=== PATIENT | male | born 1945 | race Caucasian/White ===

== ENCOUNTER 2021-05-02 17:08 | Emergency (ER) | payer MEDICARE, OTHER, SELFPAY ==
[2021-05-02 17:49] VITALS: BP 142/68; PULSE 102; RESP 22; TEMP 39.3; O2SAT 94; BMI 31.4
--- NOTE | 2021-05-02 17:59 | DI.RAD.S_ITS ---
PROCEDURE: XR CHEST 1V INDICATIONS: suspected sepsis TECHNIQUE: One view of the chest was acquired. COMPARISON: None. FINDINGS: Surgical changes and devices: Left-sided percutaneous cardiac defibrillator device. Left humeral head bone anchor. Lungs and pleura: The left hemidiaphragm is elevated. Visible lung carter demonstrate slight coarsening of the interstitial markings but no focal consolidations. Scattered punctate calcifications. No pleural effusion or pneumothorax. Mediastinum: Mediastinal contours appear normal. Heart size is not well seen due to elevated diaphragm contour.. Bones and chest wall: Degenerative endplate spurs in the thoracic spine and in the upper lumbar spine. . Probable remote, healed right clavicle injury. IMPRESSION: 1. No radiographic evidence of acute cardiopulmonary disease. 2. Probable cardiomegaly, obscured by elevation of the left hemidiaphragm. Dictated by: Fransisca Girard M.D. on 05/02/2021 at 18:38 Approved by: Fransisca Girard M.D. on 05/02/2021 at 18:42
--- NOTE | 2021-05-02 17:59 | DI.RAD.S_ITS ---
PROCEDURE: XR SHOULDER LT MIN 2V INDICATIONS: fall, left shoulder pain, fever 103 TECHNIQUE: Three views of the shoulder were acquired. COMPARISON: None. FINDINGS: Bones: No fractures or dislocations. Spurring along the inferior acromioclavicular joint and dystrophic calcifications along the caudal portion of the joint. No suspicious bony lesions. Visualized ribs appear intact. Humeral head bone anchor. Soft tissues: Faint dystrophic calcifications between in the acromial humeral interval. Chondrocalcinosis over the humeral head. IMPRESSION: 1. No fractures. 2. Chondrocalcinosis. 3. Moderate AC joint degeneration. 4. Prior left shoulder surgery. Dictated by: Fransisca Girard M.D. on 05/02/2021 at 18:42 Approved by: Fransisca Girard M.D. on 05/02/2021 at 18:44
[2021-05-02 18:22] LABS: Add Manual Diff / Slide Review NO; Basophils Absolute Auto 0 /uL (0-100); Basophils Percent Auto 0.4 % (0-2); Eosinophils Absolute Auto 0 /uL (0-450); Eosinophils Percent Auto 0.2 % (2-4); Hematocrit 40.1 % (41-53); Hemoglobin 13.4 g/dL (13.5-17.5); Lymphocytes Absolute Auto 400 /uL (1100-4500); Lymphocytes Percent Auto 4.5 % (25-40); Mean Corpuscular HGB Conc 33.4 % (30-36); Mean Corpuscular Hemoglobin 30.7 PG (26-34); Mean Corpuscular Volume 91.9 fL (80-100); Monocytes Absolute Auto 1100 /uL (0-900); Monocytes Percent Auto 11.5 % (3-14); Neutrophils Absolute Auto 8200 /uL (1500-7000); Neutrophils Percent Auto 83.4 % (50-75); Platelet Count 222 X10^3/uL (150-400); Red Blood Cell Count 4.36 X10^6/uL (4.5-5.9); Red Cell Distribution Width 13.7 % (11.6-14.8); White Blood Cell Count 9.9 X10^3/uL (4.5-11.0)
[2021-05-02 18:26] LABS: COVID19 -Nasal RAPID Negative (Negative)
[2021-05-02] MEDS: SODIUM CHLORIDE 0.9% 1,000 ML 1000 ML IV (18:32)
[2021-05-02 18:36] LABS: Lactate (Lactic Acid) 0.6 mmol/L (0.7-2.1)
[2021-05-02 18:37] LABS: Alanine Aminotransferase 20 IU/L (<50); Albumin 3.6 g/dL (3.5-5.0); Albumin Globulin Ratio 1.2 (1.0-2.8); Alkaline Phosphatase 67 U/L (38-126); Aspartate Aminotransferase 21 IU/L (17-59); BUN Creatinine Ratio 25.8 (6-22); Bilirubin Total 0.7 mg/dL (0.2-1.3); Blood Urea Nitrogen 24 mg/dL (9-20); Calcium 9.5 mg/dL (8.4-10.2); Carbon Dioxide 24 mmol/L (22-32); Chloride 95 mmol/L (98-107); Creatine Kinase 46 U/L (55-170); Estimated Glomerular Filt Rate > 60.0 mL/min (>60); Globulin 3.1 g/dL (1.7-4.1); Glucose 144 mg/dL (80-110); HEMOLYSIS < 15 (0-50); Lipase 29 U/L (23-300); Potassium 4.7 mmol/L (3.4-5.1); Sodium 126 mmol/L (137-145); Total Protein 6.7 g/dL (6.3-8.2)
[2021-05-02 18:49] LABS: NT-proBNP (BNP-Adult 18+) 376 pg/mL (<125); Troponin I < 0.012 ng/mL (0.01-0.034)
[2021-05-02 18:53] LABS: Procalcitonin 0.21 ng/mL (<0.5)
--- NOTE | 2021-05-02 22:22 | ED.GENADULT ---
HPI - General Adult <Janeen Alcantar MD - Last Filed: 05/03/21 17:20> General Chief complaint: Extremity Injury, Upper Stated complaint: lt shoulder injury s/p fall Time Seen by Provider: 05/02/21 18:07 Source: patient and family Mode of arrival: Wheelchair Limitations: no limitations History of Present Illness HPI narrative: 76-year-old gentleman with a history of left-sided neck foramenectomy in December of this year for which he takes gabapentin and baclofen, atherosclerotic coronary artery disease with pacer defibrillator in place an ejection fraction in the mid 50s, intermittent lower extremity edema with as needed Lasix use without significant congestive heart failure history. [place] on [place] boat today while laying in bed went back to catch himself with his left arm and felt something pull/pop/tear in the upper arm shoulder area. He comes in for further evaluation. In the emergency department he is noted to have a temperature of a 103?. He has absolutely no complaints consistent with infectious etiology at all. He has had no cough he did not note that he had a fever, no chills, myalgias, chest pain, palpitations, abdominal pain, vomiting, diarrhea, skin changes rashes or cellulitis concerns and no dysuria or flank pain. Related Data Previous Rx's Medication Instructions Recorded cephalexin 500 mg capsule 500 mg PO Q6H 7 Days #28 cap 05/03/21 oxycodone 5 mg tablet 5 mg PO Q4-6H PRN #20 tab 05/03/21 oxycodone-acetaminophen 5 mg-300 1 tab PO Q8H PRN #20 tab 05/03/21 mg tablet Allergies Allergy/AdvReac Type Severity Reaction Status Date / Time latex Allergy Verified 05/02/21 17:49 Review of Systems <Janeen Alcantar MD - Last Filed: 05/03/21 17:20> Review of Systems Narrative: Remainder of complete review of systems is otherwise unremarkable except for that included in the HPI. Patient History <Janeen Alcantar MD - Last Filed: 05/03/21 17:20> Medical History (Updated 05/03/21 @ 17:15 by Janeen Alcantar MD) Cardiac disease Lower extremity edema Presence of combination internal cardiac defibrillator (ICD) and pacemaker Surgical History (Updated 07/30/21 @ 17:14 by Janeen Alcantar MD) H/O cervical spine surgery Social History Smoking Status: Never smoker Smoking Status: Never smoker Substance Use Type: does not use Exam <Janeen Alcantar MD - Last Filed: 05/03/21 17:20> Narrative Exam Narrative: General: Healthy appearing, in mild distress due to left arm and shoulder pain Able to give a complete and coherent history. Well-nourished well-developed HEENT: Moist mucous membranes, normal sclera with reactive pupils, Neck: No JVD, supple Respiratory: Lungs are clear to auscultation, no wheezing no rales no rhonchi. Full and symmetrical air movement Cardiac: Regular rate and rhythm no murmurs no bruits Abdomen: Soft, nontender, good bowel tones, no flank pain Skin: Warm and dry, no rashes Neurologic: Grossly neurologically intact with no obvious asymmetries or abnormalities Extremities: Left shoulder tender with internal and external rotation and mild anterior fullness. No obvious bony injury and no contusions abrasions or hematomas. 1+ bilateral lower extremity edema Psych: Cooperative, appropriate insight and affect Initial Vital Signs Initial Vital Signs: Vital Signs Temperature 102.7 F H 05/02/21 17:49 Pulse Rate 102 H 05/02/21 17:49 Respiratory Rate 22 05/02/21 17:49 Blood Pressure 142/68 H 05/02/21 17:49 Pulse Oximetry 94 05/02/21 17:49 <Kaushik De Los Santos DO - Last Filed: 05/03/21 19:57> Initial Vital Signs Initial Vital Signs: Vital Signs Temperature 102.7 F H 05/02/21 17:49 Pulse Rate 102 H 05/02/21 17:49 Respiratory Rate 22 05/02/21 17:49 Blood Pressure 142/68 H 05/02/21 17:49 Pulse Oximetry 94 05/02/21 17:49 Course <Janeen Alcantar MD - Last Filed: 05/03/21 17:20> Orders Ordered: Discontinued Medications Sodium Chloride (Normal Saline 0.9%) 1,000 mls @ 1,000 mls/hr IV BOLUS ONE Stop: 05/02/21 18:58 Last Infusion: 05/02/21 20:18 Dose: 0 mls/hr Documented by: Admin: 05/02/21 18:32 Dose: 1,000 mls/hr Documented by: ROSA Oxycodone/Acetaminophen (Oxycodone/Acetaminophen 5/325 Tablet) 2 tab PO NOW ONE Stop: 05/02/21 22:48 Last Admin: 05/02/21 23:02 Dose: 2 tab Documented by: ERIKA Oxycodone/Acetaminophen (Oxycodone/Apap 5/325 Prepack) 1 bottle MISC SEEINSTR ONE Stop: 05/03/21 01:31 Last Admin: 05/03/21 01:42 Dose: 1 bottle Documented by: KATY Vital Signs Vital signs: Vital Signs - 8 hr 05/02/21 17:49 05/03/21 00:44 Temperature 102.7 F H 98.8 F Pulse Rate 102 H Respiratory Rate 22 Blood Pressure 142/68 H Pulse Oximetry 94 <Kaushik De Los Santos DO - Last Filed: 05/03/21 19:57> Course Course Narrative: 1020 - lab called, Blood Cx x3 note Staph. Attempt to call patient at home, no answer. Left message. 1140 - patient called back. Lab findings relayed. He feels great. No fever. No chills. No LE/N/V/cough/chest pain/urinary complaints. Rx for Keflex 500 q6 x7 days sent to [facility]. Return precautions discussed and questions answered to his apparent satisfaction Orders Ordered: Discontinued Medications Sodium Chloride (Normal Saline 0.9%) 1,000 mls @ 1,000 mls/hr IV BOLUS ONE Stop: 05/02/21 18:58 Last Infusion: 05/02/21 20:18 Dose: 0 mls/hr Documented by: Admin: 05/02/21 18:32 Dose: 1,000 mls/hr Documented by: ROSA Oxycodone/Acetaminophen (Oxycodone/Acetaminophen 5/325 Tablet) 2 tab PO NOW ONE Stop: 05/02/21 22:48 Last Admin: 05/02/21 23:02 Dose: 2 tab Documented by: ERIKA Oxycodone/Acetaminophen (Oxycodone/Apap 5/325 Prepack) 1 bottle MISC SEEINSTR ONE Stop: 05/03/21 01:31 Last Admin: 05/03/21 01:42 Dose: 1 bottle Documented by: CTRLAYLA Vital Signs Vital signs: Vital Signs - 8 hr 05/02/21 17:49 05/03/21 00:44 Temperature 102.7 F H 98.8 F Pulse Rate 102 H Respiratory Rate 22 Blood Pressure 142/68 H Pulse Oximetry 94 Medical Decision Making <Janeen Alcantar MD - Last Filed: 05/03/21 17:20> Lab Data Result diagrams: 05/02/21 18:12 05/02/21 18:12 Labs: Lab Results 05/02/21 05/02/21 05/02/21 Range/Units 18:00 18:12 18:12 WBC 9.9 (4.5-11.0) X10^3/uL RBC 4.36 L (4.5-5.9) X10^6/uL Hgb 13.4 L (13.5-17.5) g/dL Hct 40.1 L (41-53) % MCV 91.9 (80-100) fL MCH 30.7 (26-34) PG MCHC 33.4 (30-36) % RDW 13.7 (11.6-14.8) % Plt Count 222 (150-400) X10^3/uL Neut % (Auto) 83.4 H (50-75) % Lymph % (Auto) 4.5 L (25-40) % [place] % (Auto) 11.5 (3-14) % Eos % (Auto) 0.2 L (2-4) % Baso % (Auto) 0.4 (0-2) % Neut # (Auto) 8200 H (4985-3831) /uL Lymph # (Auto) 400 L (7539-3748) /uL [place] # (Auto) 1100 H (0-900) /uL Eos # (Auto) 0 (0-450) /uL Baso # (Auto) 0 (0-100) /uL Sodium 126 L (137-145) mmol/L Potassium 4.7 (3.4-5.1) mmol/L Chloride 95 L (98-107) mmol/L Carbon Dioxide 24 (22-32) mmol/L BUN 24 H (9-20) mg/dL Creatinine 0.93 (0.66-1.25) mg/dL Estimated GFR > 60.0 (>60) mL/min BUN/Creatinine Ratio 25.8 H (6-22) Glucose 144 H (80-110) mg/dL Lactate (0.7-2.1) mmol/L Calcium 9.5 (8.4-10.2) mg/dL Total Bilirubin 0.7 (0.2-1.3) mg/dL AST 21 (17-59) IU/L ALT 20 (<50) IU/L Alkaline Phosphatase 67 (38-126) U/L Total Creatine Kinase (55-170) U/L CK-MB (CK-2) CK-MB (CK-2) Rel Index Troponin I (0.01-0.034) ng/mL NT-Pro-B Natriuret Pep (<125) pg/mL Total Protein 6.7 (6.3-8.2) g/dL Albumin 3.6 (3.5-5.0) g/dL Globulin 3.1 (1.7-4.1) g/dL Albumin/Globulin Ratio 1.2 (1.0-2.8) Lipase 29 (23-300) U/L Procalcitonin 0.21 (<0.5) ng/mL A. baumannii (PCR) (Not Detect) Kendal albicans (PCR) (Not Detect) C. glabrata (PCR) (Not Detect) C. krusei (PCR) (Not Detect) C. parapsilosis (PCR) (Not Detect) C. tropicalis (PCR) (Not Detect) SARS-CoV-2 (PCR) Negative (Negative) Enterobacteriac sp PCR (Not Detect) E. cloacae complex PCR (Not Detect) Enterococcus sp PCR (Not Detect) E. coli (PCR) (Not Detect) H. influenzae (PCR) (Not Detect) Klebsiella oxytoca PCR (Not Detect) Klebsiella pneumoniae (Not Detect) List. monocytogenes PCR (Not Detect) N. meningitidis (PCR) (Not Detect) Proteus species (PCR) (Not Detect) Serratia marcescens PCR (Not Detect) Staphylococcus sp PCR (Not Detect) Staph aureus (PCR) (Not Detect) mecA-Methicil Res Gene (Not Detect) Streptococcus sp PCR (Not Detect) Group A Strep (PCR) (Not Detect) Strep agalactiae (PCR) (Not Detect) Strep pneumoniae (PCR) (Not Detect) P. aeruginosa (PCR) (Not Detect) [place]/B-Vanco Res Genes KPC-Carbap Res Gene PCR 05/02/21 05/02/21 05/02/21 Range/Units 18:12 18:12 18:12 WBC (4.5-11.0) X10^3/uL RBC (4.5-5.9) X10^6/uL Hgb (13.5-17.5) g/dL Hct (41-53) % MCV (80-100) fL MCH (26-34) PG MCHC (30-36) % RDW (11.6-14.8) % Plt Count (150-400) X10^3/uL Neut % (Auto) (50-75) % Lymph % (Auto) (25-40) % [place] % (Auto) (3-14) % Eos % (Auto) (2-4) % Baso % (Auto) (0-2) % Neut # (Auto) (2519-8223) /uL Lymph # (Auto) (5749-5900) /uL [place] # (Auto) (0-900) /uL Eos # (Auto) (0-450) /uL Baso # (Auto) (0-100) /uL Sodium (137-145) mmol/L Potassium (3.4-5.1) mmol/L Chloride (98-107) mmol/L Carbon Dioxide (22-32) mmol/L BUN (9-20) mg/dL Creatinine (0.66-1.25) mg/dL Estimated GFR (>60) mL/min BUN/Creatinine Ratio (6-22) Glucose (80-110) mg/dL Lactate 0.6 L (0.7-2.1) mmol/L Calcium (8.4-10.2) mg/dL Total Bilirubin (0.2-1.3) mg/dL AST (17-59) IU/L ALT (<50) IU/L Alkaline Phosphatase (38-126) U/L Total Creatine Kinase 46 L (55-170) U/L CK-MB (CK-2) TNP CK-MB (CK-2) Rel Index TNP Troponin I < 0.012 (0.01-0.034) ng/mL NT-Pro-B Natriuret Pep 376 H (<125) pg/mL Total Protein (6.3-8.2) g/dL Albumin (3.5-5.0) g/dL Globulin (1.7-4.1) g/dL Albumin/Globulin Ratio (1.0-2.8) Lipase (23-300) U/L Procalcitonin (<0.5) ng/mL A. baumannii (PCR) Not detected (Not Detect) Kendal albicans (PCR) Not detected (Not Detect) C. glabrata (PCR) Not detected (Not Detect) C. krusei (PCR) Not detected (Not Detect) C. parapsilosis (PCR) Not detected (Not Detect) C. tropicalis (PCR) Not detected (Not Detect) SARS-CoV-2 (PCR) (Negative) Enterobacteriac sp PCR Not detected (Not Detect) E. cloacae complex PCR Not detected (Not Detect) Enterococcus sp PCR Not detected (Not Detect) E. coli (PCR) Not detected (Not Detect) H. influenzae (PCR) Not detected (Not Detect) Klebsiella oxytoca PCR Not detected (Not Detect) Klebsiella pneumoniae Not detected (Not Detect) List. monocytogenes PCR Not detected (Not Detect) N. meningitidis (PCR) Not detected (Not Detect) Proteus species (PCR) Not detected (Not Detect) Serratia marcescens PCR Not detected (Not Detect) Staphylococcus sp PCR Detected H (Not Detect) Staph aureus (PCR) Detected H (Not Detect) mecA-Methicil Res Gene Not detected (Not Detect) Streptococcus sp PCR Not detected (Not Detect) Group A Strep (PCR) Not detected (Not Detect) Strep agalactiae (PCR) Not detected (Not Detect) Strep pneumoniae (PCR) Not detected (Not Detect) P. aeruginosa (PCR) Not detected (Not Detect) [place]/B-Vanco Res Genes Not Reportable KPC-Carbap Res Gene PCR Not Reportable Imaging Data Chest x-ray: Radiologist's Impression: FINDINGS: Surgical changes and devices: Left-sided percutaneous cardiac defibrillator device. Left humeral head bone anchor. Lungs and pleura: The left hemidiaphragm is elevated. Visible lung carter demonstrate slight coarsening of the interstitial markings but no focal consolidations. Scattered punctate calcifications. No pleural effusion or pneumothorax. Mediastinum: Mediastinal contours appear normal. Heart size is not well seen due to elevated diaphragm contour.. Bones and chest wall: Degenerative endplate spurs in the thoracic spine and in the upper lumbar spine. . Probable remote, healed right clavicle injury. IMPRESSION: 1. No radiographic evidence of acute cardiopulmonary disease. 2. Probable cardiomegaly, obscured by elevation of the left hemidiaphragm. Dictated by: Farnsisca Girard M.D. on 05/02/2021 at 18:38 XR shoulder: Radiologist's Impression: FINDINGS: Bones: No fractures or dislocations. Spurring along the inferior acromioclavicular joint and dystrophic calcifications along the caudal portion of the joint. No suspicious bony lesions. Visualized ribs appear intact. Humeral head bone anchor. Soft tissues: Faint dystrophic calcifications between in the acromial humeral interval. Chondrocalcinosis over the humeral head. IMPRESSION: 1. No fractures. 2. Chondrocalcinosis. 3. Moderate AC joint degeneration. 4. Prior left shoulder surgery. Dictated by: Fransisca Girard M.D. on 05/02/2021 at 18:42 x MDM Narrative Medical decision making narrative: 76-year-old gentleman with complaints of left shoulder pain after falling back on the left shoulder in bed and pulling the area. He is not on blood thinners but does take aspirin. X-rays are unremarkable but he does have a moderate effusion developing in the anterior portion of the left shoulder. CT scan does not show any subtle bony injury and does not suggest hemarthrosis. He is placed in a sling for comfort and recommended orthopedic follow-up. He cannot have an MRI due to the external pacemaker in place in the left axillary area. Was incidentally noted to be febrile in the emergency department to 103? some with thorough workup was undertaken. He was noted to be mildly hyponatremic but has no signs of infectious etiology to explain the fever. Chest x-ray is unremarkable urine is unremarkable clinical exam is unremarkable. The resolved spontaneously. Was given 2 Percocet for pain control and after that had some mild sweating that he felt was probably more related to pain and pain medications. At this time there is no evidence of sepsis, unclear etiology for the fever including a negative COVID test, no evidence of congestive heart failure or acute coronary disease. He does use Lasix as needed and has 10 mg tablets available to him. Have asked him to use between 2 and 3 a day to get rid of the mild edema with the lower extremities. He also notes that as they have been on their boat this last week he has had not as much opportunity for walking and exercise and attributes some of that to the mild edema as well. At this point he is safe for home discharge <Kaushik De Los Santos DO - Last Filed: 05/03/21 19:57> Lab Data Labs: Lab Results 05/02/21 05/02/21 05/02/21 Range/Units 18:00 18:12 18:12 WBC 9.9 (4.5-11.0) X10^3/uL RBC 4.36 L (4.5-5.9) X10^6/uL Hgb 13.4 L (13.5-17.5) g/dL Hct 40.1 L (41-53) % MCV 91.9 (80-100) fL MCH 30.7 (26-34) PG MCHC 33.4 (30-36) % RDW 13.7 (11.6-14.8) % Plt Count 222 (150-400) X10^3/uL Neut % (Auto) 83.4 H (50-75) % Lymph % (Auto) 4.5 L (25-40) % [place] % (Auto) 11.5 (3-14) % Eos % (Auto) 0.2 L (2-4) % Baso % (Auto) 0.4 (0-2) % Neut # (Auto) 8200 H (7935-8145) /uL Lymph # (Auto) 400 L (5698-0001) /uL [place] # (Auto) 1100 H (0-900) /uL Eos # (Auto) 0 (0-450) /uL Baso # (Auto) 0 (0-100) /uL Sodium 126 L (137-145) mmol/L Potassium 4.7 (3.4-5.1) mmol/L Chloride 95 L (98-107) mmol/L Carbon Dioxide 24 (22-32) mmol/L BUN 24 H (9-20) mg/dL Creatinine 0.93 (0.66-1.25) mg/dL Estimated GFR > 60.0 (>60) mL/min BUN/Creatinine Ratio 25.8 H (6-22) Glucose 144 H (80-110) mg/dL Lactate (0.7-2.1) mmol/L Calcium 9.5 (8.4-10.2) mg/dL Total Bilirubin 0.7 (0.2-1.3) mg/dL AST 21 (17-59) IU/L ALT 20 (<50) IU/L Alkaline Phosphatase 67 (38-126) U/L Total Creatine Kinase (55-170) U/L CK-MB (CK-2) CK-MB (CK-2) Rel Index Troponin I (0.01-0.034) ng/mL NT-Pro-B Natriuret Pep (<125) pg/mL Total Protein 6.7 (6.3-8.2) g/dL Albumin 3.6 (3.5-5.0) g/dL Globulin 3.1 (1.7-4.1) g/dL Albumin/Globulin Ratio 1.2 (1.0-2.8) Lipase 29 (23-300) U/L Procalcitonin 0.21 (<0.5) ng/mL A. baumannii (PCR) (Not Detect) Kendal albicans (PCR) (Not Detect) C. glabrata (PCR) (Not Detect) C. krusei (PCR) (Not Detect) C. parapsilosis (PCR) (Not Detect) C. tropicalis (PCR) (Not Detect) SARS-CoV-2 (PCR) Negative (Negative) Enterobacteriac sp PCR (Not Detect) E. cloacae complex PCR (Not Detect) Enterococcus sp PCR (Not Detect) E. coli (PCR) (Not Detect) H. influenzae (PCR) (Not Detect) Klebsiella oxytoca PCR (Not Detect) Klebsiella pneumoniae (Not Detect) List. monocytogenes PCR (Not Detect) N. meningitidis (PCR) (Not Detect) Proteus species (PCR) (Not Detect) Serratia marcescens PCR (Not Detect) Staphylococcus sp PCR (Not Detect) Staph aureus (PCR) (Not Detect) mecA-Methicil Res Gene (Not Detect) Streptococcus sp PCR (Not Detect) Group A Strep (PCR) (Not Detect) Strep agalactiae (PCR) (Not Detect) Strep pneumoniae (PCR) (Not Detect) P. aeruginosa (PCR) (Not Detect) [place]/B-Vanco Res Genes KPC-Carbap Res Gene PCR 05/02/21 05/02/21 05/02/21 Range/Units 18:12 18:12 18:12 WBC (4.5-11.0) X10^3/uL RBC (4.5-5.9) X10^6/uL Hgb (13.5-17.5) g/dL Hct (41-53) % MCV (80-100) fL MCH (26-34) PG MCHC (30-36) % RDW (11.6-14.8) % Plt Count (150-400) X10^3/uL Neut % (Auto) (50-75) % Lymph % (Auto) (25-40) % [place] % (Auto) (3-14) % Eos % (Auto) (2-4) % Baso % (Auto) (0-2) % Neut # (Auto) (4965-3276) /uL Lymph # (Auto) (5614-4970) /uL [place] # (Auto) (0-900) /uL Eos # (Auto) (0-450) /uL Baso # (Auto) (0-100) /uL Sodium (137-145) mmol/L Potassium (3.4-5.1) mmol/L Chloride (98-107) mmol/L Carbon Dioxide (22-32) mmol/L BUN (9-20) mg/dL Creatinine (0.66-1.25) mg/dL Estimated GFR (>60) mL/min BUN/Creatinine Ratio (6-22) Glucose (80-110) mg/dL Lactate 0.6 L (0.7-2.1) mmol/L Calcium (8.4-10.2) mg/dL Total Bilirubin (0.2-1.3) mg/dL AST (17-59) IU/L ALT (<50) IU/L Alkaline Phosphatase (38-126) U/L Total Creatine Kinase 46 L (55-170) U/L CK-MB (CK-2) TNP CK-MB (CK-2) Rel Index TNP Troponin I < 0.012 (0.01-0.034) ng/mL NT-Pro-B Natriuret Pep 376 H (<125) pg/mL Total Protein (6.3-8.2) g/dL Albumin (3.5-5.0) g/dL Globulin (1.7-4.1) g/dL Albumin/Globulin Ratio (1.0-2.8) Lipase (23-300) U/L Procalcitonin (<0.5) ng/mL A. baumannii (PCR) Not detected (Not Detect) Kendal albicans (PCR) Not detected (Not Detect) C. glabrata (PCR) Not detected (Not Detect) C. krusei (PCR) Not detected (Not Detect) C. parapsilosis (PCR) Not detected (Not Detect) C. tropicalis (PCR) Not detected (Not Detect) SARS-CoV-2 (PCR) (Negative) Enterobacteriac sp PCR Not detected (Not Detect) E. cloacae complex PCR Not detected (Not Detect) Enterococcus sp PCR Not detected (Not Detect) E. coli (PCR) Not detected (Not Detect) H. influenzae (PCR) Not detected (Not Detect) Klebsiella oxytoca PCR Not detected (Not Detect) Klebsiella pneumoniae Not detected (Not Detect) List. monocytogenes PCR Not detected (Not Detect) N. meningitidis (PCR) Not detected (Not Detect) Proteus species (PCR) Not detected (Not Detect) Serratia marcescens PCR Not detected (Not Detect) Staphylococcus sp PCR Detected H (Not Detect) Staph aureus (PCR) Detected H (Not Detect) mecA-Methicil Res Gene Not detected (Not Detect) Streptococcus sp PCR Not detected (Not Detect) Group A Strep (PCR) Not detected (Not Detect) Strep agalactiae (PCR) Not detected (Not Detect) Strep pneumoniae (PCR) Not detected (Not Detect) P. aeruginosa (PCR) Not detected (Not Detect) [place]/B-Vanco Res Genes Not Reportable KPC-Carbap Res Gene PCR Not Reportable Discharge Plan Departure Patient Disposition: Home Clinical Impression: Hyponatremia Injury of shoulder, left Qualifiers: Encounter type: initial encounter Qualified Code(s): S49.92XA - Unspecified injury of left shoulder and upper arm, initial encounter Edema Qualifiers: Edema type: unspecified Qualified Code(s): R60.9 - Edema, unspecified Instructions: DI for Shoulder Pain Activity Restrictions/Additional Instructions: Thank you for coming in today I am so sorry that this has happened on one of your away trips. Your shoulder is not broken and there is no obvious bleeding into the joint. You clearly have some swelling developing in the front part of the joint and do need to see an orthopedic surgeon in follow-up. If you choose to stay in [place], please call [facility] at [phone] In the meantime, use the sling for comfort. Using 400 mg of ibuprofen (2 args-aae-atcvhzl pills) and 1 Tylenol every 6 hours can be very helpful in controlling pain. For severe pain using 400 mg of ibuprofen and 1-2 Percocet can be helpful. Ice will also be helpful in controlling pain and swelling. Regarding your blood work, your salt/sodium level was low. If you are feeling more weak or just ?off? I would encourage you to return to the emergency department so that we can recheck that. With your lower extremity swelling, using 2-3 of your 10 mg Lasix/furosemide tablets daily for the next few days along with increasing activity will certainly help. If you notice that your having new or worsening symptoms please return to the ER Prescriptions: New oxycodone-acetaminophen 5-300 mg tablet 1 tab PO Q8H PRN (Reason: pain) Qty: 20 RF: 0 cephalexin 500 mg capsule 500 mg PO Q6H 7 Days Qty: 28 RF: 0 oxycodone 5 mg tablet 5 mg PO Q4-6H PRN (Reason: pain) Qty: 20 RF: 0
--- NOTE | 2021-05-02 22:47 | DI.CT.S_ITS ---
PROCEDURE: CT UE LT WO CON INDICATIONS: shoulder pain and fullness, trauma TECHNIQUE: Noncontrast 1-1.5 mm thick sections acquired from the acromioclavicular joint to the inferior scapula, with coronal and sagittal reformatting. COMPARISON: , CR, XR SHOULDER LT MIN 2V, 05/02/2021, 18:09. FINDINGS: Image quality: Excellent. Bones: No acute fracture or dislocation. Postsurgical changes are seen from prior rotator cuff tendon repair with a single metallic anchor at the anterior greater tuberosity. Moderate degenerative changes are seen in the glenohumeral joint with joint space narrowing and marginal osteophyte formation as well as subchondral cystic changes in the glenoid. There are moderate acromioclavicular degenerative changes. Degenerative changes are seen in the sternoclavicular joints and the included spine. Soft tissues: A few calcifications are seen in the subscapularis muscle that are most likely dystrophic, but could indicate calcific tendinopathy. There is grade 2 fatty infiltration of the infraspinatus muscle. The tendons, ligaments, articular cartilages, and labrum are not well evaluated with standard CT. There is a moderate subacromial/subdeltoid bursal effusion and a small glenohumeral effusion. No focal opacity is seen in the included lungs IMPRESSION: 1. No acute osseous abnormality. Soft tissue edema surrounding the left clavicular head could indicate transient dislocation or focal inflammatory changes. The sternoclavicular joints are normally aligned at the time of the exam. 2. Postsurgical changes from rotator cuff tendon repair with a surgical anchor in the humeral head. Calcifications within the distal supraspinatus and infraspinatus tendons are likely dystrophic, but may be related to calcific tendinopathy. If there is suspicion for a rotator cuff tendon tear and the patient cannot undergo MRI, a CT arthrogram could provide more information. 3. Moderate glenohumeral and acromioclavicular osteoarthrosis. 4. Moderate subacromial/subdeltoid bursal effusion or bursitis. There is no significant discrepancy when compared to the overnight Teleradiology report. Dictated by: Paxton Resendiz M.D. on 05/03/2021 at 8:13 Approved by: Paxton Resendiz M.D. on 05/03/2021 at 8:28
[2021-05-02] MEDS: OXYCODONE/ACETAMINOPHEN 5/325 TABLET 2 TAB PO (23:02)
[2021-05-03 00:44] VITALS: TEMP 37.1
[2021-05-03] MEDS: OXYCODONE/APAP 5/325 PREPACK 1 BOTTLE MISC (01:42)
[2021-05-03 01:43] VITALS: BP 114/71; PULSE 64; RESP 19; O2SAT 97
[2021-05-03 10:12] LABS: Acinetobacter baumannii Not Detected (Not Detect); Candida albicans Not Detected (Not Detect); Candida glabrata Not Detected (Not Detect); Candida krusei Not Detected (Not Detect); Candida parapsilosis Not Detected (Not Detect); Candida tropicalis Not Detected (Not Detect); E. coli Not Detected (Not Detect); Enterobacter cloacae complex Not Detected (Not Detect); Enterobacteriaceae species Not Detected (Not Detect); Enterococcus species Not Detected (Not Detect); Haemophilus influenzae Not Detected (Not Detect); Listeria monocytogenes Not Detected (Not Detect); Methicillin-resistant gene Not Detected (Not Detect); Neisseria meningitidis Not Detected (Not Detect); Proteus species Not Detected (Not Detect); Pseudomonas aeruginosa Not Detected (Not Detect); Serratia marcescens Not Detected (Not Detect); Staphylococcus species Detected (Not Detect); Streptococcus agalactiae (Gr B Not Detected (Not Detect); Streptococcus pneumonia Not Detected (Not Detect); Streptococcus pyogenes (Gr A) Not Detected (Not Detect); Streptococcus species Not Detected (Not Detect)
== END 2021-05-03 01:47 | disposition home or self-care (01) ==
PROVIDERS: Emergency Medicine; Emergency Provider Emergency Medicine
DX: E87.1 Hypo-osmolality and hyponatremia (principal); S49.92XA Unspecified injury of left shoulder and upper arm, initial encounter; R60.9 Edema, unspecified; R50.9 Fever, unspecified; Z20.822 Contact with and (suspected) exposure to COVID-19; V92.09XA Drowning and submersion due to fall off unspecified watercraft, initial encounter
CPT/HCPCS: 36415; 71045; 73030; 73200; 80053; 82550; 83605; 83690; 83880; 84145; 84484; 85025; 87040; 87150; 87186; 87205; 87635; 93005; 96360; 96361; 99284; C9803

== ENCOUNTER 2021-05-04 11:50 | Inpatient (IN) | payer MEDICARE, OTHER, SELFPAY ==
[2021-05-04] VITALS (9 sets, daily range): BP systolic 148–184; BP diastolic 69–91; PULSE 91–114; RESP 20–22; TEMP 36.9–38.2; O2SAT 92–100; BMI 33.1
--- NOTE | 2021-05-04 12:17 | ED.UPPEXIN ---
HPI - Extremity Injury (Upper) General Chief Complaint: Extremity Injury, Upper Stated Complaint: TORN SHOULDER Time Seen by Provider: 05/04/21 12:17 Source: patient and family Mode of arrival: Ambulatory Limitations: no limitations History of Present Illness HPI narrative: 76M nonsmoker with history of alcohol abuse, AICD, hyponatremia, edema, returns for evaluation. He was recently seen and had a very extensive workup after he had a ground level fall resulting in a left shoulder injury. He had x-rays and CT which noted no fracture or dislocation but fluid suggesting injury. He was given pain meds and a sling and discharged home. He did have a fever on his arrival initially and as a consequence a septic workup was initiated. There were no obvious findings and patient had no infectious symptoms other than a small amount of postnasal drip. He has had no chest pain or shortness of breath. He denies nausea or vomiting. He denies any abdominal pain, constipation or diarrhea. He has no dysuria or frequency. Blood cultures returned Staph aureus in multiple bottles and I called him a few days ago, he stated he did not feel terrible and for that reason I did call in antibiotics but did not ask him to come back in, he was given extensive return precautions however. He was contacted again today and stated he was having increasing pain in his shoulder in just did not feel great, without any specific complaints. Related Data Previous Rx's Medication Instructions Recorded cephalexin 500 mg capsule 500 mg PO Q6H 7 Days #28 cap 05/03/21 oxycodone 5 mg tablet 5 mg PO Q4-6H PRN #20 tab 05/03/21 oxycodone-acetaminophen 5 mg-300 1 tab PO Q8H PRN #20 tab 05/03/21 mg tablet Allergies Allergy/AdvReac Type Severity Reaction Status Date / Time latex Allergy Verified 05/04/21 12:03 Review of Systems Review of Systems Narrative: GENERAL: See HPI HEENT: Denies sinus pain, ear pain, sore throat, difficulty swallowing, dizziness. RESPIRATORY: Denies dyspnea, cough, wheezing, hemoptysis, sputum. CARDIOVASCULAR: Denies chest pain, palpitations, orthopnea, edema, GASTROINTESTINAL: Denies nausea, vomiting, abdominal pain, diarrhea, constipation, melena. : Denies dysuria, frequency, incontinence, hematuria, urinary retention. MUSCULOSKELETAL: See HPI SKIN: Denies rash, skin lesions, or other NEUROLOGIC: Denies weakness, headache, numbness, change in speech, confusion, seizures, incoordination. PSYCHIATRIC: No concerning psychosocial issues. 12 point review of systems is negative except for those stated above Patient History Medical History Cardiac disease Lower extremity edema Presence of combination internal cardiac defibrillator (ICD) and pacemaker Surgical History H/O cervical spine surgery Social History Smoking Status: Never smoker Smoking Status: Never smoker alcohol intake frequency: 0-2 drinks per day Substance Use Type: does not use Exam Narrative Exam Narrative: GENERAL: [76] year old patient appears stated age. Well-developed patient, in mild distress. Clearly having pain in his left upper extremity but generally appears unwell HEAD: Atraumatic. Normocephalic. EYES: Pupils equal round and reactive. Extraocular motions intact. No scleral icterus. No injection or drainage. ENT: Nose without bleeding, purulent drainage. Throat without erythema, tonsillar hypertrophy or exudate. Airway patent. NECK: Trachea midline. Mild bilateral JVD CARDIOVASCULAR: Minimally tachycardic but regular rhythm without murmurs, gallops, or rubs. RESPIRATORY: Clear to auscultation. Breath sounds equal bilaterally. No wheezes, rales, or rhonchi. GASTROINTESTINAL: Abdomen soft, non-tender, nondistended. EXTREMITIES: Obvious effusion to left shoulder, no redness or warmth, pain with active range of motion but not terribly painful with passive range of motion. Additional tenderness along clavicle to the sternoclavicular joint on the left. BACK: Nontender without deformity or crepitance. No flank tenderness. NEURO: AOx3. SKIN: No rash or erythema of visible areas Initial Vital Signs Initial Vital Signs: Vital Signs Temperature 98.4 F 05/04/21 12:02 Pulse Rate 91 H 05/04/21 12:02 Respiratory Rate 22 05/04/21 12:02 Pulse Oximetry 100 05/04/21 12:02 Course Orders Ordered: ED Orders 05/04/21 13:00 C-Reactive Protein Quant Stat Complete Blood Count AUTO DIFF Stat Comprehensive Metabolic Panel Stat Erythrocyte Sedimentation Rate Stat Lactate (Lactic Acid) Stat Procalcitonin Stat Troponin & CK Cardiac Panel Stat 05/04/21 13:40 Blood Culture Stat 05/04/21 15:30 Urinalysis and Microscopic Stat 05/04/21 16:10 Body Fluid Culture Stat Cell Count w Diff Body Fluid Stat Glucose Body Fluid Stat Total Protein Body Fluid Stat 05/04/21 16:12 CT chest abd pel w con Stat 05/04/21 16:20 COVID19 - ADMIT (REGISTERED RESPIRATORY TECHNICIAN swab/PCR) Stat 05/04/21 18:35 Body Fluid Culture Stat Lactated Ringer's (Lactated Ringers) 1,000 mls @ 200 mls/hr IV CONT JESSICA Last Infusion: 05/04/21 18:42 Dose: 0 mls/hr Documented by: Admin: 05/04/21 13:23 Dose: 200 mls/hr Documented by: ROSA Vancomycin HCl/Dextrose (Vancomycin) 2,000 mg in 400 mls @ 200 mls/hr IV NOW ONE Stop: 05/04/21 20:42 Discontinued Medications Hydromorphone HCl (Hydromorphone 0.5 Mg Inj) 0.5 mg IV NOW ONE Stop: 05/04/21 18:46 Last Admin: 05/04/21 18:47 Dose: 0.5 mg Documented by: KYLE Piperacillin Sod/Tazobactam (Sod 4.5 gm/ Sodium Chloride) 100 mls @ 200 mls/hr IV NOW ONE Stop: 05/04/21 18:33 Last Admin: 05/04/21 18:42 Dose: 200 mls/hr Documented by: KYLE Consultations Consultation #1: Call on-call orthopedics, Dr. Willson, given infectious concerns and worsening joint pain. She has seen evaluated the patient, please see her consultation for details but she did tap both the shoulder and sternoclavicular joint without any obvious findings up front Vital Signs Vital signs: Vital Signs - 8 hr 05/04/21 12:02 05/04/21 17:01 05/04/21 17:30 Temperature 98.4 F 100.4 F H Pulse Rate 91 H 107 H 112 H Respiratory Rate 22 Blood Pressure 184/91 H Pulse Oximetry 100 95 94 05/04/21 18:00 05/04/21 18:30 Temperature Pulse Rate 109 H 114 H Respiratory Rate Blood Pressure 153/69 H 164/75 H Pulse Oximetry 95 94 MDM - Extremity Injury (Upper) Lab Data Result diagrams: 05/04/21 13:00 05/04/21 13:00 Labs: Lab Results 05/04/21 05/04/21 05/04/21 Range/Units 13:00 13:00 13:00 WBC 9.6 (4.5-11.0) X10^3/uL RBC 4.13 L (4.5-5.9) X10^6/uL Hgb 12.7 L (13.5-17.5) g/dL Hct 38.2 L (41-53) % MCV 92.6 (80-100) fL MCH 30.8 (26-34) PG MCHC 33.3 (30-36) % RDW 14.0 (11.6-14.8) % Plt Count 226 (150-400) X10^3/uL Neut % (Auto) 82.0 H (50-75) % Lymph % (Auto) 4.4 L (25-40) % Shannon % (Auto) 12.5 (3-14) % Eos % (Auto) 1.0 L (2-4) % Baso % (Auto) 0.1 (0-2) % Neut # (Auto) 7800 H (5134-3674) /uL Lymph # (Auto) 400 L (5986-3097) /uL Shannon # (Auto) 1200 H (0-900) /uL Eos # (Auto) 100 (0-450) /uL Baso # (Auto) 0 (0-100) /uL ESR (0-15) MM/HR Sodium 126 L (137-145) mmol/L Potassium 4.8 (3.4-5.1) mmol/L Chloride 94 L (98-107) mmol/L Carbon Dioxide 27 (22-32) mmol/L BUN 29 H (9-20) mg/dL Creatinine 1.03 (0.66-1.25) mg/dL Estimated GFR > 60.0 (>60) mL/min BUN/Creatinine Ratio 28.2 H (6-22) Glucose 199 H (80-110) mg/dL Lactate 1.0 (0.7-2.1) mmol/L Calcium 9.6 (8.4-10.2) mg/dL Total Bilirubin 0.6 (0.2-1.3) mg/dL AST 18 (17-59) IU/L ALT 18 (<50) IU/L Alkaline Phosphatase 66 (38-126) U/L Total Creatine Kinase 61 (55-170) U/L CK-MB (CK-2) TNP CK-MB (CK-2) Rel Index TNP Troponin I < 0.012 (0.01-0.034) ng/mL C-Reactive Protein (<1.0) mg/dL Total Protein 6.3 (6.3-8.2) g/dL Albumin 3.3 L (3.5-5.0) g/dL Globulin 3.0 (1.7-4.1) g/dL Albumin/Globulin Ratio 1.1 (1.0-2.8) Procalcitonin 0.43 (<0.5) ng/mL Urine Color Urine Appearance Urine pH (4.5-8.0) Ur Specific [place] (1.000-1.035) Urine Protein (Negative) Urine Glucose (UA) (Negative) g/dL Urine Ketones (NEGATIVE) Urine Occult Blood (Negative) Urine Nitrate (Negative) Urine Bilirubin (NEGATIVE) Urine Urobilinogen (0.2) E.U./dL Ur Leukocyte Esterase (NEGATIVE) Urine RBC (0-5/HPF) Urine WBC (0-5/HPF) Ur Squamous Epith Cells (0-5/HPF) Ur Transition Epith Cell (0-5/HPF) Urine Bacteria (None) Ur Culture Indicated? Fluid Color Fluid Appearance Fluid RBC /uL Fld Tot Nucleated Cell /uL Fluid Polynuclear WBCs % Fluid Mononuclear WBCs % Fluid Eosinophils % Fluid Other Cells % Body Fluid Clot Fluid Glucose mg/dL Fluid Total Protein g/dL 05/04/21 05/04/21 05/04/21 Range/Units 13:00 13:00 15:30 WBC (4.5-11.0) X10^3/uL RBC (4.5-5.9) X10^6/uL Hgb (13.5-17.5) g/dL Hct (41-53) % MCV (80-100) fL MCH (26-34) PG MCHC (30-36) % RDW (11.6-14.8) % Plt Count (150-400) X10^3/uL Neut % (Auto) (50-75) % Lymph % (Auto) (25-40) % Shannon % (Auto) (3-14) % Eos % (Auto) (2-4) % Baso % (Auto) (0-2) % Neut # (Auto) (9945-2506) /uL Lymph # (Auto) (8688-0154) /uL Shannon # (Auto) (0-900) /uL Eos # (Auto) (0-450) /uL Baso # (Auto) (0-100) /uL ESR 45 H (0-15) MM/HR Sodium (137-145) mmol/L Potassium (3.4-5.1) mmol/L Chloride (98-107) mmol/L Carbon Dioxide (22-32) mmol/L BUN (9-20) mg/dL Creatinine (0.66-1.25) mg/dL Estimated GFR (>60) mL/min BUN/Creatinine Ratio (6-22) Glucose (80-110) mg/dL Lactate (0.7-2.1) mmol/L Calcium (8.4-10.2) mg/dL Total Bilirubin (0.2-1.3) mg/dL AST (17-59) IU/L ALT (<50) IU/L Alkaline Phosphatase (38-126) U/L Total Creatine Kinase (55-170) U/L CK-MB (CK-2) CK-MB (CK-2) Rel Index Troponin I (0.01-0.034) ng/mL C-Reactive Protein 29.8 H (<1.0) mg/dL Total Protein (6.3-8.2) g/dL Albumin (3.5-5.0) g/dL Globulin (1.7-4.1) g/dL Albumin/Globulin Ratio (1.0-2.8) Procalcitonin (<0.5) ng/mL Urine Color Yellow Urine Appearance Clear Urine pH 5.0 (4.5-8.0) Ur Specific [place] <=1.005 (1.000-1.035) Urine Protein Trace H (Negative) Urine Glucose (UA) Negative (Negative) g/dL Urine Ketones Negative (NEGATIVE) Urine Occult Blood Negative (Negative) Urine Nitrate Negative (Negative) Urine Bilirubin Negative (NEGATIVE) Urine Urobilinogen 0.2 (0.2) E.U./dL Ur Leukocyte Esterase Negative (NEGATIVE) Urine RBC None seen (0-5/HPF) Urine WBC 0-1/hpf (0-5/HPF) Ur Squamous Epith Cells 5-10 /hpf H (0-5/HPF) Ur Transition Epith Cell 1-5/hpf (0-5/HPF) Urine Bacteria None seen (None) Ur Culture Indicated? Cult not indicated Fluid Color Fluid Appearance Fluid RBC /uL Fld Tot Nucleated Cell /uL Fluid Polynuclear WBCs % Fluid Mononuclear WBCs % Fluid Eosinophils % Fluid Other Cells % Body Fluid Clot Fluid Glucose mg/dL Fluid Total Protein g/dL 05/04/21 05/04/21 Range/Units 16:10 16:10 WBC (4.5-11.0) X10^3/uL RBC (4.5-5.9) X10^6/uL Hgb (13.5-17.5) g/dL Hct (41-53) % MCV (80-100) fL MCH (26-34) PG MCHC (30-36) % RDW (11.6-14.8) % Plt Count (150-400) X10^3/uL Neut % (Auto) (50-75) % Lymph % (Auto) (25-40) % Shannon % (Auto) (3-14) % Eos % (Auto) (2-4) % Baso % (Auto) (0-2) % Neut # (Auto) (6026-4935) /uL Lymph # (Auto) (7035-2728) /uL Shannon # (Auto) (0-900) /uL Eos # (Auto) (0-450) /uL Baso # (Auto) (0-100) /uL ESR (0-15) MM/HR Sodium (137-145) mmol/L Potassium (3.4-5.1) mmol/L Chloride (98-107) mmol/L Carbon Dioxide (22-32) mmol/L BUN (9-20) mg/dL Creatinine (0.66-1.25) mg/dL Estimated GFR (>60) mL/min BUN/Creatinine Ratio (6-22) Glucose (80-110) mg/dL Lactate (0.7-2.1) mmol/L Calcium (8.4-10.2) mg/dL Total Bilirubin (0.2-1.3) mg/dL AST (17-59) IU/L ALT (<50) IU/L Alkaline Phosphatase (38-126) U/L Total Creatine Kinase (55-170) U/L CK-MB (CK-2) CK-MB (CK-2) Rel Index Troponin I (0.01-0.034) ng/mL C-Reactive Protein (<1.0) mg/dL Total Protein (6.3-8.2) g/dL Albumin (3.5-5.0) g/dL Globulin (1.7-4.1) g/dL Albumin/Globulin Ratio (1.0-2.8) Procalcitonin (<0.5) ng/mL Urine Color Urine Appearance Urine pH (4.5-8.0) Ur Specific [place] (1.000-1.035) Urine Protein (Negative) Urine Glucose (UA) (Negative) g/dL Urine Ketones (NEGATIVE) Urine Occult Blood (Negative) Urine Nitrate (Negative) Urine Bilirubin (NEGATIVE) Urine Urobilinogen (0.2) E.U./dL Ur Leukocyte Esterase (NEGATIVE) Urine RBC (0-5/HPF) Urine WBC (0-5/HPF) Ur Squamous Epith Cells (0-5/HPF) Ur Transition Epith Cell (0-5/HPF) Urine Bacteria (None) Ur Culture Indicated? Fluid Color [place] Fluid Appearance Slightly cloudy Fluid RBC 7162 /uL Fld Tot Nucleated Cell 4380 /uL Fluid Polynuclear WBCs 43 % Fluid Mononuclear WBCs 57 % Fluid Eosinophils 0 % Fluid Other Cells 0 % Body Fluid Clot No clots present Fluid Glucose 195 mg/dL Fluid Total Protein 3.3 g/dL Imaging Data CT scan - chest: Radiologist's Impression: Nikolas Grijalva Mary 76 M [address] [id number] Scan ReportSigned Patient: Nikolas Grijalva TMR#: [id number]: 7Acct:[id number]/Sex: 76 / MDate of Service: 05/04/21Loc: EDAccession Number: [id number] Procedure: CT chest abd pel w con Ordering Provider: Kaushik De Los Santos D.O. PROCEDURE: CT CHEST ABD PEL W CON INDICATIONS: septic, pain, swelling left anterior chest, positive culture TECHNIQUE: After the administration of intravenous contrast, 5 mm thick sections acquired from the lung apices to the symphysis. 2.5 mm thick coronal and sagittal reformats were acquired. Additional 7 mm thick coronal maximum intensity projection (MIP) reformats acquired through the lungs. Optional 10-minute delayed imaging may be performed from the kidneys to the bladder. For radiation dose reduction, the following was used: automated exposure control, adjustment of mA and/or kV according to patient size. COMPARISON: None. FINDINGS: Image quality: Excellent. CHEST: Lungs: No acute airspace opacity. Pleural spaces clear. Mediastinum: There is inflammatory change in fluid centered on the left sternoclavicular joint. Inflammatory changes and fluid extend posteriorly into the anterior aspect of the upper mediastinum (for example series 2, image 22). The overall size of the abnormality is approximately 7.6 by 6.7 cm maximum axial dimension (series 2, image 22). There are no definite erosive or lytic changes of the adjacent sternum or clavicle. Normal heart size. No pericardial effusion. Normal caliber thoracic aorta and main pulmonary trunk. No threshold enlarged mediastinal or hilar lymph node. Chest wall: No acute or suspicious osseous lesion other than the left sternoclavicular abnormality described above. No threshold enlarged axillary lymph node. Small right thyroid lobe nodule measuring 1 cm. ABDOMEN: Solid organs: Normal CT appearance of the liver and spleen. The pancreas is grossly unremarkable. Gallbladder is contracted without acute finding. No adrenal gland nodule or mass demonstrated. No hydroureter or hydronephrosis. Peritoneum and bowel: No abnormally dilated or obviously thickened loop of bowel. There is mild diffuse mesenteric and pericolonic fat stranding suggestive of possible fluid overload. There is also some small volume fluid in the pelvis. Nodes and vessels: No threshold enlarged intra-abdominal or retroperitoneal lymph node. Abdominal aorta and IVC demonstrate no acute finding. Miscellaneous: No ventral hernias. PELVIS: Genitourinary: Normal urinary bladder wall thickness. Miscellaneous: No threshold enlarged pelvic or inguinal lymph node. Bones: Pelvic ring and hip joints appear intact. No vertebral compression fractures. IMPRESSION: 1. Fluid and inflammatory changes centered on the left sternoclavicular joint. Findings could represent septic arthritis or aseptic acute inflammation. Imaging studies cannot reliably differentiate between these two entities. 2. Small volume fluid in the pelvis with trace diffuse mesenteric and pericolonic fat stranding/edema. Findings could represent volume overload or other source of edema, although an acute infectious process such as enteritis or colitis could cause a similar appearance. Dictated by: Daniel Ybarra M.D. on 05/04/2021 at 17:06 Approved by: Daniel Ybarra M.D. on 05/04/2021 at 17:12 [facility] Narrative Medical decision making narrative: Patient is had increasing pain and is generally feeling increasingly unwell over the past few days. He has had fever and positive blood cultures which are thus far unexplained. There are no elements to his history or physical that clearly demonstrate the etiology of these symptoms and given his medical history and appearance along with positive blood cultures and some abnormal vitals patient will be admitted to the hospital, monitored closely, given IV antibiotics Discharge Plan Departure Patient Disposition: Admitted As Inpatient Clinical Impression: Bacteremia, Blood bacterial culture positive, Acute shoulder pain Prescriptions: No Action oxycodone-acetaminophen 5-300 mg tablet 1 tab PO Q8H PRN (Reason: pain) Qty: 20 RF: 0 cephalexin 500 mg capsule 500 mg PO Q6H 7 Days Qty: 28 RF: 0 oxycodone 5 mg tablet 5 mg PO Q4-6H PRN (Reason: pain) Qty: 20 RF: 0
[2021-05-04] MEDS: LACTATED RINGERS 1,000 ML 200 ML IV (13:23)
[2021-05-04 13:27] LABS: Add Manual Diff / Slide Review NO; Basophils Absolute Auto 0 /uL (0-100); Basophils Percent Auto 0.1 % (0-2); Eosinophils Absolute Auto 100 /uL (0-450); Hematocrit 38.2 % (41-53); Hemoglobin 12.7 g/dL (13.5-17.5); Lymphocytes Absolute Auto 400 /uL (1100-4500); Lymphocytes Percent Auto 4.4 % (25-40); Mean Corpuscular HGB Conc 33.3 % (30-36); Mean Corpuscular Hemoglobin 30.8 PG (26-34); Mean Corpuscular Volume 92.6 fL (80-100); Monocytes Absolute Auto 1200 /uL (0-900); Monocytes Percent Auto 12.5 % (3-14); Neutrophils Absolute Auto 7800 /uL (1500-7000); Platelet Count 226 X10^3/uL (150-400); Red Blood Cell Count 4.13 X10^6/uL (4.5-5.9); White Blood Cell Count 9.6 X10^3/uL (4.5-11.0)
[2021-05-04 13:38] LABS: Alanine Aminotransferase 18 IU/L (<50); Albumin 3.3 g/dL (3.5-5.0); Albumin Globulin Ratio 1.1 (1.0-2.8); Alkaline Phosphatase 66 U/L (38-126); Aspartate Aminotransferase 18 IU/L (17-59); BUN Creatinine Ratio 28.2 (6-22); Bilirubin Total 0.6 mg/dL (0.2-1.3); Blood Urea Nitrogen 29 mg/dL (9-20); Calcium 9.6 mg/dL (8.4-10.2); Carbon Dioxide 27 mmol/L (22-32); Chloride 94 mmol/L (98-107); Creatine Kinase 61 U/L (55-170); Estimated Glomerular Filt Rate > 60.0 mL/min (>60); Glucose 199 mg/dL (80-110); HEMOLYSIS < 15 (0-50); Potassium 4.8 mmol/L (3.4-5.1); Sodium 126 mmol/L (137-145); Total Protein 6.3 g/dL (6.3-8.2)
[2021-05-04 13:49] LABS: Troponin I < 0.012 ng/mL (0.01-0.034)
[2021-05-04 13:54] LABS: Procalcitonin 0.43 ng/mL (<0.5)
[2021-05-04 14:56] LABS: Erythrocyte Sedimentation Rate 45 MM/HR (0-15)
[2021-05-04 15:02] LABS: C-Reactive Protein Quant 29.8 mg/dL (<1.0)
[2021-05-04 15:41] LABS: Bacteria Urine None Seen; RBC Urine None Seen (0-5/HPF)
[2021-05-04 15:46] LABS: Appearance Urine UA CLEAR; Bilirubin Urine UA NEGATIVE (NEGATIVE); Color Urine UA YELLOW; Glucose Urine UA NEGATIVE (Negative); Ketones Urine UA NEGATIVE (NEGATIVE); Leukocyte Esterase Urine UA NEGATIVE (NEGATIVE); Nitrite Urine UA NEGATIVE (Negative); Occult Blood Urine UA NEGATIVE (Negative); Protein Urine UA TRACE (Negative); Specific Gravity Urine UA <=1.005 (1.000-1.035); Urobilinogen Urine UA 0.2 E.U./dL (0.2)
[2021-05-04 15:57] LABS: Culture Indicated Urine Cult Not Indicated; Squamous Epithelial Cell Urine 5-10 /HPF (0-5/HPF); Transitional Epi Cells Urine 1-5/HPF (0-5/HPF); WBC Urine 0-1/HPF (0-5/HPF)
--- NOTE | 2021-05-04 16:12 | DI.CT.S_ITS ---
PROCEDURE: CT CHEST ABD PEL W CON INDICATIONS: septic, pain, swelling left anterior chest, positive culture TECHNIQUE: After the administration of intravenous contrast, 5 mm thick sections acquired from the lung apices to the symphysis. 2.5 mm thick coronal and sagittal reformats were acquired. Additional 7 mm thick coronal maximum intensity projection (MIP) reformats acquired through the lungs. Optional 10-minute delayed imaging may be performed from the kidneys to the bladder. For radiation dose reduction, the following was used: automated exposure control, adjustment of mA and/or kV according to patient size. COMPARISON: None. FINDINGS: Image quality: Excellent. CHEST: Lungs: No acute airspace opacity. Pleural spaces clear. Mediastinum: There is inflammatory change in fluid centered on the left sternoclavicular joint. Inflammatory changes and fluid extend posteriorly into the anterior aspect of the upper mediastinum (for example series 2, image 22). The overall size of the abnormality is approximately 7.6 by 6.7 cm maximum axial dimension (series 2, image 22). There are no definite erosive or lytic changes of the adjacent sternum or clavicle. Normal heart size. No pericardial effusion. Normal caliber thoracic aorta and main pulmonary trunk. No threshold enlarged mediastinal or hilar lymph node. Chest wall: No acute or suspicious osseous lesion other than the left sternoclavicular abnormality described above. No threshold enlarged axillary lymph node. Small right thyroid lobe nodule measuring 1 cm. ABDOMEN: Solid organs: Normal CT appearance of the liver and spleen. The pancreas is grossly unremarkable. Gallbladder is contracted without acute finding. No adrenal gland nodule or mass demonstrated. No hydroureter or hydronephrosis. Peritoneum and bowel: No abnormally dilated or obviously thickened loop of bowel. There is mild diffuse mesenteric and pericolonic fat stranding suggestive of possible fluid overload. There is also some small volume fluid in the pelvis. Nodes and vessels: No threshold enlarged intra-abdominal or retroperitoneal lymph node. Abdominal aorta and IVC demonstrate no acute finding. Miscellaneous: No ventral hernias. PELVIS: Genitourinary: Normal urinary bladder wall thickness. Miscellaneous: No threshold enlarged pelvic or inguinal lymph node. Bones: Pelvic ring and hip joints appear intact. No vertebral compression fractures. IMPRESSION: 1. Fluid and inflammatory changes centered on the left sternoclavicular joint. Findings could represent septic arthritis or aseptic acute inflammation. Imaging studies cannot reliably differentiate between these two entities. 2. Small volume fluid in the pelvis with trace diffuse mesenteric and pericolonic fat stranding/edema. Findings could represent volume overload or other source of edema, although an acute infectious process such as enteritis or colitis could cause a similar appearance. Dictated by: Daniel Ybarra M.D. on 05/04/2021 at 17:06 Approved by: Daniel Ybarra M.D. on 05/04/2021 at 17:12
[2021-05-04 16:38] LABS: Glucose Body Fluid 195 mg/dL
[2021-05-04 17:35] LABS: Body Fluid Appearance SLIGHTLY CLOUDY; Body Fluid Clotted? NO CLOTS PRESENT; Body Fluid Color PINK
[2021-05-04 18:11] LABS: Eosinophils Body Fluid 0 %; Mononuclear WBC Body Fluid 57 %; Other Cells Body Fluid 0 %; Polynuclear WBC Body Fluid 43 %
[2021-05-04 18:21] LABS: Total Protein Body Fluid 3.3 g/dL
[2021-05-04 18:21] LABS: COVID19 - ADMIT (NP swab/PCR) Negative (Negative)
[2021-05-04] MEDS: PIPERACILLIN/TAZO 4.5 GM in SODIUM CHLORIDE 0.9% 100 ML 200 ML IV (18:42)
--- NOTE | 2021-05-04 18:44 | P.HP_ITS ---
History of Present Illness History of Present Illness Date Patient Seen: 05/04/21 Time Patient Seen: 17:00 Chief complaint: TORN SHOULDER Narrative: This is a 76-year-old gentleman who was going to get up from a seated position a couple days ago he reached back and shows injured his left shoulder. He noted the acute onset of fairly severe left shoulder pain. He came to [facility] Emergency Room where he was worked up with plain x-rays of his shoulder and a CT scan. He was noted to be febrile when he was in the hospital emergency room and blood cultures were drawn. To of the blood cultures are positive for a Staph aureus. He return to the emergency room today with ongoing significant left shoulder pain. He has been using a sling. He has noted fevers and chills at home. He has a complicated past medical history. He has a history of bilateral rotator cuff repairs in the remote past. Has a history of a neuro foramenotomy for severe left arm radicular symptoms in about December. He has had some ongoing chronic neck pain since his neuro foramanotomy. He notes his left shoulder was doing reasonably well until this acute injury. 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 He had to have a wound VAC in fairly extensive dressing changes on the right leg. Orthopedic consultation was requested for shoulder pain with positive blood cultures. Patient History Medical History Cardiac disease Lower extremity edema Presence of combination internal cardiac defibrillator (ICD) and pacemaker Surgical History (Updated 05/03/21 @ 17:14 by Janeen Alcantar MD) H/O cervical spine surgery Family & Social History Safety & Behavioral: Feels Safe in Current Yes Environment Been Physically Hurt or No Threatened By a Person Tobacco & Substance use: Smoking Status Never smoker alcohol intake frequency 0-2 drinks per day Substance Use Type does not use Meds Home Medications and Allergies Home Medications Medication Instructions Recorded Confirmed Type cephalexin 500 mg capsule 500 mg PO Q6H 7 Days #28 cap 05/03/21 Rx oxycodone 5 mg tablet 5 mg PO Q4-6H PRN #20 tab 05/03/21 Rx oxycodone-acetaminophen 5 mg-300 1 tab PO Q8H PRN #20 tab 05/03/21 Rx mg tablet Allergies Allergy/AdvReac Type Severity Reaction Status Date / Time latex Allergy Verified 05/04/21 12:03 Review of Systems Review of Systems Narrative: Does not note new shortness of breath. He was having some problems with a sinus drip and some slight cough. He has noted fevers and chills and night sweats. Denies any new urinary symptoms. He does have a history of previous prostate surgery and has some difficulty voiding. Exam Vital Signs (past 8 hours): - 05/04/21 12:02 05/04/21 17:01 05/04/21 17:30 Temperature 98.4 F 100.4 F H Pulse Rate 91 H 107 H 112 H Respiratory Rate 22 Blood Pressure 184/91 H Pulse Oximetry 100 95 94 05/04/21 18:00 05/04/21 18:30 Temperature Pulse Rate 109 H 114 H Respiratory Rate Blood Pressure 153/69 H 164/75 H Pulse Oximetry 95 94 Oxygen Delivery Method Room Air Narrative Exam Narrative: He appears somewhat uncomfortable and diaphoretic, has difficultly he mobilizing from a supine to a seated position and requires assistance, has moderate pain with attempted gentle range of motion in the left shoulder. There is mild swelling and fullness along the anterior aspect of the left shoulder, he also has swelling over his left sternal clavicular joint and moderate swelling in the supraclavicular region of the left shoulder there is focal tenderness over his sternoclavicular joint. There is evidence of asymmetry in comparison to the right side, there is some mild fasciculations noted in his sternal clavicular muscles bilaterally, as restricted range of mot ion in his cervical spine, as well-healed posterior incision, he has fairly mild pain with gentle range of motion internal and external rotation of the left shoulder but there is moderate to severe guarding with attempted active flexion of his shoulder, there is no obvious wound on his right lower extremity, he has healed knee incisions, abdomen is benign, Objective Labs Result Diagrams: 05/04/21 13:00 05/04/21 13:00 Labs: Laboratory Results - last 24 hr 05/04/21 05/04/21 05/04/21 13:00 13:00 13:00 WBC 9.6 RBC 4.13 L Hgb 12.7 L Hct 38.2 L MCV 92.6 MCH 30.8 MCHC 33.3 RDW 14.0 Plt Count 226 Neut % (Auto) 82.0 H Lymph % (Auto) 4.4 L [place] % (Auto) 12.5 Eos % (Auto) 1.0 L Baso % (Auto) 0.1 Neut # (Auto) 7800 H Lymph # (Auto) 400 L [place] # (Auto) 1200 H Eos # (Auto) 100 Baso # (Auto) 0 ESR Sodium 126 L Potassium 4.8 Chloride 94 L Carbon Dioxide 27 BUN 29 H Creatinine 1.03 Estimated GFR > 60.0 BUN/Creatinine Ratio 28.2 H Glucose 199 H Lactate 1.0 Calcium 9.6 Total Bilirubin 0.6 AST 18 ALT 18 Alkaline Phosphatase 66 Total Creatine Kinase 61 CK-MB (CK-2) TNP CK-MB (CK-2) Rel Index TNP Troponin I < 0.012 C-Reactive Protein Total Protein 6.3 Albumin 3.3 L Globulin 3.0 Albumin/Globulin Ratio 1.1 Procalcitonin 0.43 Urine Color Urine Appearance Urine pH Ur Specific [place] Urine Protein Urine Glucose (UA) Urine Ketones Urine Occult Blood Urine Nitrate Urine Bilirubin Urine Urobilinogen Ur Leukocyte Esterase Urine RBC Urine WBC Ur Squamous Epith Cells Ur Transition Epith Cell Urine Bacteria Ur Culture Indicated? Fluid Color Fluid Appearance Fluid RBC Fld Tot Nucleated Cell Fluid Polynuclear WBCs Fluid Mononuclear WBCs Fluid Eosinophils Fluid Other Cells Body Fluid Clot Fluid Glucose Fluid Total Protein 05/04/21 05/04/21 05/04/21 13:00 13:00 15:30 WBC RBC Hgb Hct MCV MCH MCHC RDW Plt Count Neut % (Auto) Lymph % (Auto) [place] % (Auto) Eos % (Auto) Baso % (Auto) Neut # (Auto) Lymph # (Auto) [place] # (Auto) Eos # (Auto) Baso # (Auto) ESR 45 H Sodium Potassium Chloride Carbon Dioxide BUN Creatinine Estimated GFR BUN/Creatinine Ratio Glucose Lactate Calcium Total Bilirubin AST ALT Alkaline Phosphatase Total Creatine Kinase CK-MB (CK-2) CK-MB (CK-2) Rel Index Troponin I C-Reactive Protein 29.8 H Total Protein Albumin Globulin Albumin/Globulin Ratio Procalcitonin Urine Color Yellow Urine Appearance Clear Urine pH 5.0 Ur Specific [place] <=1.005 Urine Protein Trace H Urine Glucose (UA) Negative Urine Ketones Negative Urine Occult Blood Negative Urine Nitrate Negative Urine Bilirubin Negative Urine Urobilinogen 0.2 Ur Leukocyte Esterase Negative Urine RBC None seen Urine WBC 0-1/hpf Ur Squamous Epith Cells 5-10 /hpf H Ur Transition Epith Cell 1-5/hpf Urine Bacteria None seen Ur Culture Indicated? Cult not indicated Fluid Color Fluid Appearance Fluid RBC Fld Tot Nucleated Cell Fluid Polynuclear WBCs Fluid Mononuclear WBCs Fluid Eosinophils Fluid Other Cells Body Fluid Clot Fluid Glucose Fluid Total Protein 05/04/21 05/04/21 16:10 16:10 WBC RBC Hgb Hct MCV MCH MCHC RDW Plt Count Neut % (Auto) Lymph % (Auto) [place] % (Auto) Eos % (Auto) Baso % (Auto) Neut # (Auto) Lymph # (Auto) [place] # (Auto) Eos # (Auto) Baso # (Auto) ESR Sodium Potassium Chloride Carbon Dioxide BUN Creatinine Estimated GFR BUN/Creatinine Ratio Glucose Lactate Calcium Total Bilirubin AST ALT Alkaline Phosphatase Total Creatine Kinase CK-MB (CK-2) CK-MB (CK-2) Rel Index Troponin I C-Reactive Protein Total Protein Albumin Globulin Albumin/Globulin Ratio Procalcitonin Urine Color Urine Appearance Urine pH Ur Specific [place] Urine Protein Urine Glucose (UA) Urine Ketones Urine Occult Blood Urine Nitrate Urine Bilirubin Urine Urobilinogen Ur Leukocyte Esterase Urine RBC Urine WBC Ur Squamous Epith Cells Ur Transition Epith Cell Urine Bacteria Ur Culture Indicated? Fluid Color [place] Fluid Appearance Slightly cloudy Fluid RBC 7162 Fld Tot Nucleated Cell 4380 Fluid Polynuclear WBCs 43 Fluid Mononuclear WBCs 57 Fluid Eosinophils 0 Fluid Other Cells 0 Body Fluid Clot No clots present Fluid Glucose 195 Fluid Total Protein 3.3 plain x-rays of his left shoulder showed retained internal fixation, no substantial proximal subluxation of the humeral head CT scan shows swelling over the left sternal clavicular joint, retained internal fixation bilateral shoulders, mild glenohumeral narrowing, Assessment & Plan Assessment & Plan narrative: He is having significant symptoms over his left glenohumeral joint. I recommended aspiration. He was prepped sterilely and his glenohumeral joint was aspirated I removed approximately 17 cc of fairly clear fluid. It was sent for stat Gram stain culture and sensitivity and glucose and total protein as well as the cell count. Repeat CT scan showed swelling over the left sternal clavicular joint and I was asked by the emergency room mohan sotelo to re-evaluate his sternoclavicular joint. Then aspirated his left sternoclavicular joint and got just a drop or 2 of fluid. It was bloody did not appear purulence and was for sent for stat Gram stain culture and sensitivity. Subsequent Gram stain of his glenohumeral joint did not show evidence of organisms.
[2021-05-04] MEDS: HYDROMORPHONE 0.5 MG INJ IV (18:47)
[2021-05-04 19:06] LABS: Body Fluid Tot Nucleated Cells 4092 /uL
--- NOTE | 2021-05-04 19:37 | P.HP_ITS ---
History of Present Illness History of Present Illness Date Patient Seen: 05/04/21 Time Patient Seen: 19:38 Chief complaint: TORN SHOULDER Narrative: Patient is 76-year-old male Nikolas Grijalva nonsmoker with history of alcohol abuse, AICD, hyponatremia, who was seen in the ED 05/02 for Left shoulder edema, returned today for evaluation. He had a very extensive workup after he had a ground level fall resulting in a left shoulder injury in his motor home. He had x-rays and CT which noted no fracture or dislocation but fluid suggesting injury. He was given pain meds and a sling and discharged home. Patient did have a initial septic workup (blood cultures) for fever. He initially was contacted with positive blood culture results of Staph aureus in multiple bottles and prescribed outpatient oral antibiotics. But the patient return to the ED today because he was having increasing pain in his Lt shoulder in just did not feel great, without any specific complaints. In the ED Dr. Demetris huffman came in and tapped the left shoulder and the left sternoclavicular joint. and felt neither were sources for a infection. Patient complains of a mild body aches, chills, mild cough r/t allergy symptoms with postnasal drip, no ear, eye, throat pain or difficulty swallowing. He has no chest pain, shortness of breath, abd pain, nausea, vomiting, constipation, diarrhea, dysuria or frequency. Patient denies no recent illness or exposure to ill persons, traumat ic injury trauma or loss of consciousness other than his left shoulder. Patient denies any E injuries skin lesions infections, no recent antibiotic use, no numbness, tingling, weakness, headache, changes in vision. Patient is unable to provide an adequate medical history although he is alert and orientated he verified only that he has a history of hypertension, COPD, SARIAH and uses CPAP, and that he had an episode of endocarditis has been unable to reach her at this time. In 2016, and that he had a ICD defibrillator placed at that time. Patient denies a history of congestive heart failure, coronary artery disease, hyperlipidemia, or any other medical conditions at this time. Patient was also unable to tell us his medications he states that his has a complete list, nursing is trying to contract her. Patient upon admit is resting in bed eating has significant discomfort in the le ft shoulder with any sort of movement, skin appears dry cracked and significantly reddened. Patient is in mild distress, though more ill appearing on exam, then on paper. Admit vitals:temp 100.4?, BP 164/75, tachycardic within HR of 114, and slightly tachypneic with an RR 22, O2 saturation 94% on room air. Patient did not have white count as wbc's were 9.6, but did have a slight neutrophil pump at 7800, ESR of 45 CRP 29.8, lactate and procalcitonin were both within normal limits. HGB 12.7, HCT 38.2. Patient also has some mild hyponatremia 126, chloride 94, BUN 29, glucose 199, the patient's creatinine and GFR were within normal limits, a did have low albumin at 3.3. CT of chest abdomen and pelvis demonstrated Fluid and inflammatory changes centered on the left sternoclavicular joint. Findings that could represent septic arthritis or aseptic acute inflammation. In addition small volume fluid in the pelvis with trace diffuse mesenteric and pericolonic fat stranding/edema. Findings could represent volume overload or other source of edema, or an acute infectious process such as enteritis or colitis. Patient admitted with Staphylococcus aureus bacteremia of unknown etiology, mild sepsis, hyponatremia. 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 History of tibial fracture Lower extremity edema Presence of combination internal cardiac defibrillator (ICD) and pacemaker Surgical History (Updated 05/04/21 @ 22:23 by KEL Marinelli) H/O cervical spine surgery History of bilateral knee replacement History of foot surgery Family & Social History Family History (Updated 05/04/21 @ 22:25 by KEL Marinelli) Mother Congestive heart failure Father Blood clots in brain Stroke Safety & Behavioral: Feels Safe in Current Yes, patient is retired, he and his have a home in [place] but have recently been traveling by through [place], [place], [place], and [place] on holiday. Environment Been Physically Hurt or No Threatened By a Person Tobacco & Substance use: Smoking Status Never smoker alcohol intake frequency none-Quit 12/24/2020-patient states he was a severe alcoholic and went to rehab in the spring and was a heavy drinker for approximately 10 years. Substance Use Type does not use Physical activity: Patient states that prior to going on holiday approximately 3 weeks ago the patient and his walked 1 mi a day and bike ride for 15-18 miles a day. Meds Home Medications and Allergies Home Medications Medication Instructions Recorded Confirmed Type cephalexin 500 mg capsule 500 mg PO Q6H 7 Days #28 cap 05/03/21 05/04/21 Rx oxycodone 5 mg tablet 5 mg PO Q4-6H PRN #20 tab 05/03/21 05/04/21 Rx oxycodone-acetaminophen 5 mg-300 1 tab PO Q8H PRN #20 tab 05/03/21 05/04/21 Rx mg tablet Incruse Ellipta 18 mg INHALATION DIRECTED PRN 05/04/21 05/04/21 History Symbicort See Rx Instructions .ROUTE .COMPLEX 05/04/21 05/04/21 History aspirin 325 mg PO DAILY 05/04/21 05/04/21 History carvedilol 25 mg PO 1-2XD 05/04/21 05/04/21 History digoxin 125 mcg (0.125 mg) tablet 125 mcg PO DAILY 05/04/21 05/04/21 History furosemide 20 mg tablet (Lasix) 20 mg PO DAILY 05/04/21 05/04/21 History lisinopril 20 mg tablet 20 mg PO DAILY 05/04/21 05/04/21 History rosuvastatin 10 mg tablet (Crestor) 10 mg PO DAILY 05/04/21 05/04/21 History Allergies Allergy/AdvReac Type Severity Reaction Status Date / Time latex Allergy Verified 05/04/21 12:03 Review of Systems Review of Systems Narrative: All systems reviewed with the patient and are negative except otherwise documented. Exam Vital Signs (past 8 hours): - 05/04/21 12:02 05/04/21 17:01 05/04/21 17:30 Temperature 98.4 F 100.4 F H Pulse Rate 91 H 107 H 112 H Respiratory Rate 22 Blood Pressure 184/91 H Pulse Oximetry 100 95 94 05/04/21 18:00 05/04/21 18:30 Temperature Pulse Rate 109 H 114 H Respiratory Rate Blood Pressure 153/69 H 164/75 H Pulse Oximetry 95 94 Oxygen Delivery Method Room Air Narrative Exam Narrative: Well-developed patient, in mild distress. Clearly having pain in his left upper extremity but generally appears unwell HEAD: Atraumatic. Normocephalic. EYES: Pupils equal round and reactive. Extraocular motions intact. No scleral icterus. No injection or drainage. ENT: Nose without bleeding, purulent drainage. Throat without erythema, tonsillar hypertrophy or exudate. Airway patent. NECK: Trachea midline. Mild bilateral JVD-Additional tenderness along clavicle to the sternoclavicular joint on the left, noted small raised area warm & tender oval area to touch about the size of a tennis ball, 7-8 cm in diameter. CARDIOVASCULAR: Minimally tachycardic but regular rhythm without murmurs, gallops, or rubs. RESPIRATORY: Clear to auscultation in all lobes. Breath sounds equal bilaterally. No wheezes, rales, or rhonchi. GASTROINTESTINAL: Abdomen soft, non-tender, distended which is the patients normal habitus, BS x4 present. EXTREMITIES: Obvious effusion to left shoulder, no redness or warmth, pain with active range of motion but not terribly painful with passive range of motion, bilateral edema to lower extremities, left nonpitting +1 right pitting +2, chronic secondary to tib fib osteotomy with minnie placement and foot reconstruction. pedal pulses are in tact. BACK: Nontender without deformity or crepitance. No flank tenderness. NEURO: AOx3. SKIN: No rash, wounds, or erythema are visualized Objective Labs Result Diagrams: 05/04/21 13:00 05/04/21 13:00 Labs: Laboratory Results - last 24 hr 05/04/21 05/04/21 05/04/21 13:00 13:00 13:00 WBC 9.6 RBC 4.13 L Hgb 12.7 L Hct 38.2 L MCV 92.6 MCH 30.8 MCHC 33.3 RDW 14.0 Plt Count 226 Neut % (Auto) 82.0 H Lymph % (Auto) 4.4 L [place] % (Auto) 12.5 Eos % (Auto) 1.0 L Baso % (Auto) 0.1 Neut # (Auto) 7800 H Lymph # (Auto) 400 L [place] # (Auto) 1200 H Eos # (Auto) 100 Baso # (Auto) 0 ESR Sodium 126 L Potassium 4.8 Chloride 94 L Carbon Dioxide 27 BUN 29 H Creatinine 1.03 Estimated GFR > 60.0 BUN/Creatinine Ratio 28.2 H Glucose 199 H Lactate 1.0 Calcium 9.6 Total Bilirubin 0.6 AST 18 ALT 18 Alkaline Phosphatase 66 Total Creatine Kinase 61 CK-MB (CK-2) TNP CK-MB (CK-2) Rel Index TNP Troponin I < 0.012 C-Reactive Protein Total Protein 6.3 Albumin 3.3 L Globulin 3.0 Albumin/Globulin Ratio 1.1 Procalcitonin 0.43 Urine Color Urine Appearance Urine pH Ur Specific [place] Urine Protein Urine Glucose (UA) Urine Ketones Urine Occult Blood Urine Nitrate Urine Bilirubin Urine Urobilinogen Ur Leukocyte Esterase Urine RBC Urine WBC Ur Squamous Epith Cells Ur Transition Epith Cell Urine Bacteria Ur Culture Indicated? Fluid Color Fluid Appearance Fluid RBC Fld Tot Nucleated Cell Fluid Polynuclear WBCs Fluid Mononuclear WBCs Fluid Eosinophils Fluid Other Cells Body Fluid Clot Fluid Glucose Fluid Total Protein SARS-CoV-2 (PCR) 05/04/21 05/04/21 05/04/21 13:00 13:00 15:30 WBC RBC Hgb Hct MCV MCH MCHC RDW Plt Count Neut % (Auto) Lymph % (Auto) [place] % (Auto) Eos % (Auto) Baso % (Auto) Neut # (Auto) Lymph # (Auto) [place] # (Auto) Eos # (Auto) Baso # (Auto) ESR 45 H Sodium Potassium Chloride Carbon Dioxide BUN Creatinine Estimated GFR BUN/Creatinine Ratio Glucose Lactate Calcium Total Bilirubin AST ALT Alkaline Phosphatase Total Creatine Kinase CK-MB (CK-2) CK-MB (CK-2) Rel Index Troponin I C-Reactive Protein 29.8 H Total Protein Albumin Globulin Albumin/Globulin Ratio Procalcitonin Urine Color Yellow Urine Appearance Clear Urine pH 5.0 Ur Specific [place] <=1.005 Urine Protein Trace H Urine Glucose (UA) Negative Urine Ketones Negative Urine Occult Blood Negative Urine Nitrate Negative Urine Bilirubin Negative Urine Urobilinogen 0.2 Ur Leukocyte Esterase Negative Urine RBC None seen Urine WBC 0-1/hpf Ur Squamous Epith Cells 5-10 /hpf H Ur Transition Epith Cell 1-5/hpf Urine Bacteria None seen Ur Culture Indicated? Cult not indicated Fluid Color Fluid Appearance Fluid RBC Fld Tot Nucleated Cell Fluid Polynuclear WBCs Fluid Mononuclear WBCs Fluid Eosinophils Fluid Other Cells Body Fluid Clot Fluid Glucose Fluid Total Protein SARS-CoV-2 (PCR) 05/04/21 05/04/21 05/04/21 16:10 16:10 16:20 WBC RBC Hgb Hct MCV MCH MCHC RDW Plt Count Neut % (Auto) Lymph % (Auto) [place] % (Auto) Eos % (Auto) Baso % (Auto) Neut # (Auto) Lymph # (Auto) [place] # (Auto) Eos # (Auto) Baso # (Auto) ESR Sodium Potassium Chloride Carbon Dioxide BUN Creatinine Estimated GFR BUN/Creatinine Ratio Glucose Lactate Calcium Total Bilirubin AST ALT Alkaline Phosphatase Total Creatine Kinase CK-MB (CK-2) CK-MB (CK-2) Rel Index Troponin I C-Reactive Protein Total Protein Albumin Globulin Albumin/Globulin Ratio Procalcitonin Urine Color Urine Appearance Urine pH Ur Specific [place] Urine Protein Urine Glucose (UA) Urine Ketones Urine Occult Blood Urine Nitrate Urine Bilirubin Urine Urobilinogen Ur Leukocyte Esterase Urine RBC Urine WBC Ur Squamous Epith Cells Ur Transition Epith Cell Urine Bacteria Ur Culture Indicated? Fluid Color [place] Fluid Appearance Slightly cloudy Fluid RBC Fld Tot Nucleated Cell 4092 Fluid Polynuclear WBCs 43 Fluid Mononuclear WBCs 57 Fluid Eosinophils 0 Fluid Other Cells 0 Body Fluid Clot No clots present Fluid Glucose 195 Fluid Total Protein 3.3 SARS-CoV-2 (PCR) Negative Assessment & Plan Assessment & Plan narrative: Patient is 76-year-old male [place] nonsmoker with history of alcohol abuse, AICD, hyponatremia, who was seen in the ED 05/02 for Left shoulder edema, returned today for evaluation. He had a very extensive workup after he had a ground level fall resulting in a left shoulder injury. Patient returned today do to feeling worse and positive blood cultures for Staphylococcus aureus in multiple bottles. Patient admitted for a Staphylococcus aureus bacteremia of unknown etiology, mild sepsis, hyponatremia. Identify source of infection, monitor patient, IV antibiotics, and fluids. 1. Staphylococcus aureus bacteremia, of unknown etiology, resulting in early sepsis with tachycardia, tachypnea, and hyponatremia in the setting of left shoulder and left sternoclavicular joint edema, secondary to ground level fall and injury, acute present on admission -patient has a sofa score: 1, but does meet SIRS criteria for sepsis, patient's physical appearance and exam appears more septic, then diagnostic findings. Will treat for sepsis in the hopes of preventing the patient from developing septic shock. The patient did share that he had an episode of endocarditis in 2016 at which point the ICD was placed because my EF was 30% and my heart was so weak. -because the pt has a fever, with 2 initial blood cultures positive for staphylococcus aureus, hx of endocarditis, implanted cardiac device(ICD), and possible hx of unknown heart disease, 2 additional blood cultures were drawn today, and echo ordered for tomorrow, if positive pt may require transfer for [facility]. Will continue to rule out other sources of infection and empiric IV medication treatment. -rule out osteomyelitis, gas gangrene necrotizing fasciitis, enteritis, endocarditis, colitis, septic arthritis -Monitor for septic shock, hypotension, electrolyte imbalance, cardiac irritability,JVD, urine output, lactate, H&H, and airway, fluid overload -temp 100.4?, BP 164/75, HR of 114, RR 22, neutrophil 7800, ESR 45 CRP 29.8, 126, chloride 94, BUN 29, glucose 199, albumin at 3.3. Patients WBC, lactate, procalcitonin; aspirated fluid from left AC joint and left sternal clavicular joint fluid (preliminary-negative) urinalysis dip and chest x-ray were negative for sites of infection. -CT of chest abdomen and pelvis demonstrated Fluid and inflammatory changes centered on the left sternoclavicular joint. Findings that could represent septic arthritis or aseptic acute inflammation. In addition small volume fluid in the pelvis with trace diffuse mesenteric and pericolonic fat stranding/edema. Findings could represent volume overload or other source of edema, or an acute infectious process such as enteritis or colitis. -In the ED Dr. Willson ortho came in and tapped the left shoulder and the left sternoclavicular joint. Dr. Willson verbalized that she did not feel that either of these were the sites for infection. She did state if the left sternoclavicular joint area became increasingly larger that General surgery should be consulted. Dr. Willson also reported that she found the patient more ill appearing than his labs demonstrated. Fluid sent for culture -antiemetics for nausea and vomiting, pain managment -Ordrered sepsis bundle-telemedicine, vital signs q.4 hours, orthostatics q.a.m., call for respiratory rate> 30, increasing O2 requirements, systolic blood pressure <100, urinary output<60 cc/hr,intake and output monitored Q shift, weight measure daily, diet:Heart Healthy, IV fluids: LR at 100 cc/hour. following 2 1liter boluses -patient had a dose of Zosyn and vancomycin in the ED, continue Zosyn and vancomycin per pharmacy daily -daily labs ordered CBC, CMP, Qam. Repeat Procalcitonin, Lactic acid, trop, CRP, ESR, urine culture, sputum culture, fluid culture, blood cultures x2,. NOTE: The evening nurse notified me approximately 12:30 a.m. that the patient's arm has has significantly increased in size and was completely swollen from the left shoulder down through the hand, patient had developed +2 edema to the entire left arm, which was not present on admit. Ordered ultrasound of left arm stat with repeat CBC CMP CRP ESR D-dimer, and procalcitonin, a Toradol 30 mg IV, and stopped IV bolus. Elevated the patient's arms on pillows and ice packs applied. -phone consult Dr. Marisela Willson (orthopedic), 1:00 a.m., Dr. Willson will physically come in for consult. 2. Elevated blood sugar without the diagnosis of diabetes, acute, present on admission -A1c: 5.8%-No diabetes, does not require blood sugar management 3. Essential hypertension, in the setting of ICD in place, acute on chronic, present on admission -B/P 164/75 (patient reports that his baseline systolic blood pressure 1 30s to 150s) -continue patient's lisinopril, continue the patient's also prescribed carvedilol, digoxin, and Lasix-which I believe is for heart failure with preserved ejection fraction (per pt 50-55%), and possible atrial fibrillation? 4. Obesity as evidence by BMI 33.5 kg/m2, acute on chronic, present on admission -consideration will be given to dietary counseling Code status: Full code Surrogate decision maker: Joy HUFF PCR: Negative COVID vaccination: Pfizer December 2020 DVT/VTE prophylaxis: Lovenox 40 mg and SCDs Estimated length of stay: Likely to be greater than 2 midnights as source for bacteremia needs to be identified, IV antibiotics and fluid rehydration. I have utilized all available immediate resources to obtain, update, or review the patient's current medications. I confirmed that the patient's advanced care plan is present, Code status is documented and/or surrogate decision maker is listed in the patient's medical record. Scores GCS [place] coma scale eye opening: Spontaneous Mike coma scale verbal response: Orientated [place] coma scale motor response: Obey commands Mike coma scale total score: 15 SOFA PaO2/FIO2: < 400 mmHg Platelets: >= 150 Bilirubin: < 1.2 mg/dL Hypotension: MAP >= 70 mmHg [place] Coma Scale: 15 Renal: < 1.2 mg/dL SOFA Score: 1 Wells' Criteria for PE Clinical signs and symptoms of DVT: No PE is #1 Dx or equally likely: No Heart rate > 100: Yes Immobilization at least 3 days or surg in previous 4 weeks: No History of PE or DVT: No Hemoptysis: No Malignancy w/Treatment within 6 months or palliative: No Wells' PE Score total: 1.5
--- NOTE | 2021-05-04 19:52 | PC.NURSE ---
Called to give report to Franki aceves; was eventually told he was on his dinner break.
[2021-05-04 19:55] LABS: Magnesium 2.1 mg/dL (1.6-2.3)
[2021-05-04 20:21] LABS: Hemoglobin A1C% w Est Avg Glu 5.8 % (4.0-6.0)
[2021-05-04] MEDS: VANCOMYCIN 2,000 MG/400 ML PIGGYBACK 200 MG IV (20:29)
[2021-05-04] MEDS: SODIUM CHLORIDE 0.9% 1,000 ML 1000 ML IV ×2 (20:29→21:50)
[2021-05-04] MEDS: VANCOMYCIN PER PHARMACY 1 REQUEST MISC (20:30)
[2021-05-04 22:32] LABS: Bacteria Urine None Seen; RBC Urine None Seen (0-5/HPF); WBC Urine None Seen (0-5/HPF)
[2021-05-04 22:40] LABS: Appearance Urine UA CLEAR; Bilirubin Urine UA NEGATIVE (NEGATIVE); Color Urine UA YELLOW; Glucose Urine UA NEGATIVE (Negative); Ketones Urine UA TRACE (NEGATIVE); Leukocyte Esterase Urine UA NEGATIVE (NEGATIVE); Nitrite Urine UA NEGATIVE (Negative); Occult Blood Urine UA TRACE-LYSED (Negative); Protein Urine UA 1+ (Negative); Specific Gravity Urine UA <=1.005 (1.000-1.035); Urobilinogen Urine UA 0.2 E.U./dL (0.2)
[2021-05-04 22:59] LABS: Culture Indicated Urine Cult Not Indicated
[2021-05-05] VITALS (23 sets, daily range): BP systolic 113–155; BP diastolic 61–97; PULSE 63–94; RESP 12–19; TEMP 36.1–37.7; O2SAT 93–99
[2021-05-05] MEDS: PIPERACILLIN/TAZO 3.375 GM in SODIUM CHLORIDE 0.9% 100 ML 25 ML IV ×2 (00:38→11:00)
[2021-05-05] MEDS: SODIUM CHLORIDE 0.9% 1,000 ML 100 ML IV (00:38)
--- NOTE | 2021-05-05 00:52 | DI.US.S_ITS ---
PROCEDURE: US PERIPH VENOUS UP EXTREM LT INDICATIONS: SEVERE EDEMA TECHNIQUE: Real-time imaging, as well as color and pulse Doppler interrogation, was performed of the left upper extremity deep veins from the inferior neck to the antecubital fossa. COMPARISON: None. FINDINGS: The internal jugular vein, visualized portions of the subclavian vein, axillary, and brachial veins are free of intraluminal thrombus. Where physically possible, the veins are normally compressible. Color and pulse Doppler demonstrate normal intraluminal flow, with expected phasicity and pulsatility. Additional scanning of the cephalic and basilic veins of the superficial system demonstrate normal compressibility, without thrombus. IMPRESSION: No evidence of left upper extremity DVT. Concordant with preliminary interpretation. Dictated by: Fabian Alanis M.D. on 05/05/2021 at 8:03 Approved by: Fabian Alanis M.D. on 05/05/2021 at 8:04
[2021-05-05] MEDS: KETOROLAC 30 MG/ML VIAL IV ×2 (01:36→13:11)
[2021-05-05 02:01] LABS: D Dimer 977 ng/mL (<230)
[2021-05-05 02:04] LABS: Add Manual Diff / Slide Review NO; Basophils Absolute Auto 0 /uL (0-100); Basophils Percent Auto 0.1 % (0-2); Eosinophils Absolute Auto 0 /uL (0-450); Eosinophils Percent Auto 0.3 % (2-4); Hemoglobin 12.3 g/dL (13.5-17.5); Lymphocytes Absolute Auto 500 /uL (1100-4500); Lymphocytes Percent Auto 5.8 % (25-40); Mean Corpuscular HGB Conc 33.3 % (30-36); Mean Corpuscular Hemoglobin 30.8 PG (26-34); Mean Corpuscular Volume 92.7 fL (80-100); Monocytes Absolute Auto 1200 /uL (0-900); Monocytes Percent Auto 12.4 % (3-14); Neutrophils Absolute Auto 7700 /uL (1500-7000); Neutrophils Percent Auto 81.4 % (50-75); Platelet Count 231 X10^3/uL (150-400); Red Blood Cell Count 3.99 X10^6/uL (4.5-5.9); Red Cell Distribution Width 14.2 % (11.6-14.8); White Blood Cell Count 9.5 X10^3/uL (4.5-11.0)
[2021-05-05 02:09] LABS: Alanine Aminotransferase 16 IU/L (<50); Alkaline Phosphatase 64 U/L (38-126); Aspartate Aminotransferase 18 IU/L (17-59); BUN Creatinine Ratio 25.8 (6-22); Bilirubin Total 0.5 mg/dL (0.2-1.3); Blood Urea Nitrogen 25 mg/dL (9-20); Calcium 9.2 mg/dL (8.4-10.2); Carbon Dioxide 25 mmol/L (22-32); Chloride 98 mmol/L (98-107); Estimated Glomerular Filt Rate > 60.0 mL/min (>60); Glucose 140 mg/dL (80-110); HEMOLYSIS < 15 (0-50); Sodium 129 mmol/L (137-145)
[2021-05-05 02:14] LABS: Erythrocyte Sedimentation Rate 77 MM/HR (0-15)
[2021-05-05 02:15] LABS: NT-proBNP (BNP-Adult 18+) 567 pg/mL (<125)
--- NOTE | 2021-05-05 02:22 | P.PN_ITS ---
Subjective Subjective Date Patient Seen: 05/05/21 Time Patient Seen: 02:23 Interval history: I was asked to see him tonight because of increased left upper extremity swelling. He also has continuing ongoing significant left shoulder pain. He is been medically fairly stable but is having ongoing significant left shoulder pain and increased swelling. Denies new shortness of breath. Notes arm swelling and shoulder pain. Exam Vital Signs (past 8 hours): - 05/04/21 18:30 05/04/21 19:00 05/04/21 19:30 Temperature Pulse Rate 114 H 107 H 104 H Respiratory Rate Blood Pressure 164/75 H 148/69 H 148/70 H Pulse Oximetry 94 92 93 05/04/21 20:25 05/04/21 21:42 05/05/21 00:30 Temperature 100.8 F H 99.4 F Pulse Rate 106 H 91 H Respiratory Rate 20 16 Blood Pressure 148/78 H 124/65 Pulse Oximetry 93 95 95 05/05/21 01:36 05/05/21 01:45 05/05/21 02:15 Temperature 99.8 F H 99.6 F 99.0 F Pulse Rate 94 H 89 Respiratory Rate 16 16 Blood Pressure 147/79 H 148/68 H Pulse Oximetry 97 93 Oxygen Delivery Method Room Air Oxygen Flow Rate 0 Narrative Exam Narrative: He is resting in his bed comfortably. He has increased pain with any attempted range of motion in the left shoulder, there is substantial increased swelling in his left arm but no focal crepitus and no significant erythema in his arm, he can fire his finger flexors and extensors does have moderate pain with attempted range of motion in his elbow and substantial pain with attempted range of motion in his shoulder. Still has persistent swelling in the supraclavicular area and pain with compression across to his sternoclavicular region there is no specific focal abscess, he has a warm left upper extremity with had a fix adequate capillary refill but moderate edema Objective Labs Result Diagrams: 05/05/21 01:40 05/05/21 01:40 Labs: Laboratory Results - last 24 hr 05/04/21 05/04/21 05/04/21 13:00 13:00 13:00 WBC 9.6 RBC 4.13 L Hgb 12.7 L Hct 38.2 L MCV 92.6 MCH 30.8 MCHC 33.3 RDW 14.0 Plt Count 226 Neut % (Auto) 82.0 H Lymph % (Auto) 4.4 L [place] % (Auto) 12.5 Eos % (Auto) 1.0 L Baso % (Auto) 0.1 Neut # (Auto) 7800 H Lymph # (Auto) 400 L [place]ansom # (Auto) 1200 H Eos # (Auto) 100 Baso # (Auto) 0 ESR D-Dimer Sodium 126 L Potassium 4.8 Chloride 94 L Carbon Dioxide 27 BUN 29 H Creatinine 1.03 Estimated GFR > 60.0 BUN/Creatinine Ratio 28.2 H Glucose 199 H Hemoglobin A1c Lactate 1.0 Calcium 9.6 Magnesium Total Bilirubin 0.6 AST 18 ALT 18 Alkaline Phosphatase 66 Total Creatine Kinase 61 CK-MB (CK-2) TNP CK-MB (CK-2) Rel Index TNP Troponin I < 0.012 C-Reactive Protein NT-Pro-B Natriuret Pep Total Protein 6.3 Albumin 3.3 L Globulin 3.0 Albumin/Globulin Ratio 1.1 Procalcitonin 0.43 Urine Color Urine Appearance Urine pH Ur Specific [place] Urine Protein Urine Glucose (UA) Urine Ketones Urine Occult Blood Urine Nitrate Urine Bilirubin Urine Urobilinogen Ur Leukocyte Esterase Urine RBC Urine WBC Ur Squamous Epith Cells Ur Transition Epith Cell Urine Bacteria Ur Culture Indicated? Fluid Color Fluid Appearance Fluid RBC Fld Tot Nucleated Cell Fluid Polynuclear WBCs Fluid Mononuclear WBCs Fluid Eosinophils Fluid Other Cells Body Fluid Clot Fluid Glucose Fluid Total Protein SARS-CoV-2 (PCR) 05/04/21 05/04/21 05/04/21 13:00 13:00 13:00 WBC RBC Hgb Hct MCV MCH MCHC RDW Plt Count Neut % (Auto) Lymph % (Auto) Ransom % (Auto) Eos % (Auto) Baso % (Auto) Neut # (Auto) Lymph # (Auto) [place] # (Auto) Eos # (Auto) Baso # (Auto) ESR 45 H D-Dimer Sodium Potassium Chloride Carbon Dioxide BUN Creatinine Estimated GFR BUN/Creatinine Ratio Glucose Hemoglobin A1c 5.8 Lactate Calcium Magnesium Total Bilirubin AST ALT Alkaline Phosphatase Total Creatine Kinase CK-MB (CK-2) CK-MB (CK-2) Rel Index Troponin I C-Reactive Protein 29.8 H NT-Pro-B Natriuret Pep Total Protein Albumin Globulin Albumin/Globulin Ratio Procalcitonin Urine Color Urine Appearance Urine pH Ur Specific [place] Urine Protein Urine Glucose (UA) Urine Ketones Urine Occult Blood Urine Nitrate Urine Bilirubin Urine Urobilinogen Ur Leukocyte Esterase Urine RBC Urine WBC Ur Squamous Epith Cells Ur Transition Epith Cell Urine Bacteria Ur Culture Indicated? Fluid Color Fluid Appearance Fluid RBC Fld Tot Nucleated Cell Fluid Polynuclear WBCs Fluid Mononuclear WBCs Fluid Eosinophils Fluid Other Cells Body Fluid Clot Fluid Glucose Fluid Total Protein SARS-CoV-2 (PCR) 05/04/21 05/04/21 05/04/21 13:00 15:30 16:10 WBC RBC Hgb Hct MCV MCH MCHC RDW Plt Count Neut % (Auto) Lymph % (Auto) Ransom % (Auto) Eos % (Auto) Baso % (Auto) Neut # (Auto) Lymph # (Auto) Ransom # (Auto) Eos # (Auto) Baso # (Auto) ESR D-Dimer Sodium Potassium Chloride Carbon Dioxide BUN Creatinine Estimated GFR BUN/Creatinine Ratio Glucose Hemoglobin A1c Lactate Calcium Magnesium 2.1 Total Bilirubin AST ALT Alkaline Phosphatase Total Creatine Kinase CK-MB (CK-2) CK-MB (CK-2) Rel Index Troponin I C-Reactive Protein NT-Pro-B Natriuret Pep Total Protein Albumin Globulin Albumin/Globulin Ratio Procalcitonin Urine Color Yellow Urine Appearance Clear Urine pH 5.0 Ur Specific [place] <=1.005 Urine Protein Trace H Urine Glucose (UA) Negative Urine Ketones Negative Urine Occult Blood Negative Urine Nitrate Negative Urine Bilirubin Negative Urine Urobilinogen 0.2 Ur Leukocyte Esterase Negative Urine RBC None seen Urine WBC 0-1/hpf Ur Squamous Epith Cells 5-10 /hpf H Ur Transition Epith Cell 1-5/hpf Urine Bacteria None seen Ur Culture Indicated? Cult not indicated Fluid Color Fluid Appearance Fluid RBC Fld Tot Nucleated Cell Fluid Polynuclear WBCs Fluid Mononuclear WBCs Fluid Eosinophils Fluid Other Cells Body Fluid Clot Fluid Glucose 195 Fluid Total Protein 3.3 SARS-CoV-2 (PCR) 05/04/21 05/04/21 05/04/21 16:10 16:20 22:10 WBC RBC Hgb Hct MCV MCH MCHC RDW Plt Count Neut % (Auto) Lymph % (Auto) Ransom % (Auto) Eos % (Auto) Baso % (Auto) Neut # (Auto) Lymph # (Auto) Ransom # (Auto) Eos # (Auto) Baso # (Auto) ESR D-Dimer Sodium Potassium Chloride Carbon Dioxide BUN Creatinine Estimated GFR BUN/Creatinine Ratio Glucose Hemoglobin A1c Lactate Calcium Magnesium Total Bilirubin AST ALT Alkaline Phosphatase Total Creatine Kinase CK-MB (CK-2) CK-MB (CK-2) Rel Index Troponin I C-Reactive Protein NT-Pro-B Natriuret Pep Total Protein Albumin Globulin Albumin/Globulin Ratio Procalcitonin Urine Color Yellow Urine Appearance Clear Urine pH 5.0 Ur Specific [place] <=1.005 Urine Protein 1+ H Urine Glucose (UA) Negative Urine Ketones Trace H Urine Occult Blood Trace-lysed Urine Nitrate Negative Urine Bilirubin Negative Urine Urobilinogen 0.2 Ur Leukocyte Esterase Negative Urine RBC None seen Urine WBC None seen Ur Squamous Epith Cells Ur Transition Epith Cell Urine Bacteria None seen Ur Culture Indicated? Cult not indicated Fluid Color [place] Fluid Appearance Slightly cloudy Fluid RBC Fld Tot Nucleated Cell 4092 Fluid Polynuclear WBCs 43 Fluid Mononuclear WBCs 57 Fluid Eosinophils 0 Fluid Other Cells 0 Body Fluid Clot No clots present Fluid Glucose Fluid Total Protein SARS-CoV-2 (PCR) Negative 05/05/21 05/05/21 05/05/21 01:40 01:40 01:40 WBC 9.5 RBC 3.99 L Hgb 12.3 L Hct 37.0 L MCV 92.7 MCH 30.8 MCHC 33.3 RDW 14.2 Plt Count 231 Neut % (Auto) 81.4 H Lymph % (Auto) 5.8 L Ransom % (Auto) 12.4 Eos % (Auto) 0.3 L Baso % (Auto) 0.1 Neut # (Auto) 7700 H Lymph # (Auto) 500 L Ransom # (Auto) 1200 H Eos # (Auto) 0 Baso # (Auto) 0 ESR 77 H D D-Dimer 977 H Sodium 129 L Potassium 5.0 Chloride 98 Carbon Dioxide 25 BUN 25 H Creatinine 0.97 Estimated GFR > 60.0 BUN/Creatinine Ratio 25.8 H Glucose 140 H Hemoglobin A1c Lactate Calcium 9.2 Magnesium Total Bilirubin 0.5 AST 18 ALT 16 Alkaline Phosphatase 64 Total Creatine Kinase CK-MB (CK-2) CK-MB (CK-2) Rel Index Troponin I C-Reactive Protein NT-Pro-B Natriuret Pep 567 H Total Protein 6.0 L Albumin 3.0 L Globulin 3.0 Albumin/Globulin Ratio 1.0 Procalcitonin Urine Color Urine Appearance Urine pH Ur Specific [place] Urine Protein Urine Glucose (UA) Urine Ketones Urine Occult Blood Urine Nitrate Urine Bilirubin Urine Urobilinogen Ur Leukocyte Esterase Urine RBC Urine WBC Ur Squamous Epith Cells Ur Transition Epith Cell Urine Bacteria Ur Culture Indicated? Fluid Color Fluid Appearance Fluid RBC Fld Tot Nucleated Cell Fluid Polynuclear WBCs Fluid Mononuclear WBCs Fluid Eosinophils Fluid Other Cells Body Fluid Clot Fluid Glucose Fluid Total Protein SARS-CoV-2 (PCR) 05/05/21 05/05/21 01:40 01:40 WBC RBC Hgb Hct MCV MCH MCHC RDW Plt Count Neut % (Auto) Lymph % (Auto) [place]ansom % (Auto) Eos % (Auto) Baso % (Auto) Neut # (Auto) Lymph # (Auto) Ransom # (Auto) Eos # (Auto) Baso # (Auto) ESR D-Dimer Sodium Cancelled Potassium Cancelled Chloride Cancelled Carbon Dioxide Cancelled BUN Cancelled Creatinine Cancelled Estimated GFR Cancelled BUN/Creatinine Ratio Cancelled Glucose Cancelled Hemoglobin A1c Lactate Calcium Cancelled Magnesium Total Bilirubin Cancelled AST Cancelled ALT Cancelled Alkaline Phosphatase Cancelled Total Creatine Kinase CK-MB (CK-2) CK-MB (CK-2) Rel Index Troponin I C-Reactive Protein Cancelled NT-Pro-B Natriuret Pep Total Protein Cancelled Albumin Cancelled Globulin Cancelled Albumin/Globulin Ratio Cancelled Procalcitonin Cancelled Urine Color Urine Appearance Urine pH Ur Specific [place] Urine Protein Urine Glucose (UA) Urine Ketones Urine Occult Blood Urine Nitrate Urine Bilirubin Urine Urobilinogen Ur Leukocyte Esterase Urine RBC Urine WBC Ur Squamous Epith Cells Ur Transition Epith Cell Urine Bacteria Ur Culture Indicated? 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 I reviewed his CT scan in detail there is some swelling in the region of the sternoclavicular joint. He is having some increased swelling in the left upper extremity. Discussed with the hospitalist the plan to get a ultrasound of the left upper extremity looking for evidence of upper extremity DVT. Reviewed the ultrasound with the tech who did not see an obvious DVT. Radiology report is pending. His repeat labs do not show significant increase in his white blood cell count. His cultures of his glenohumeral joint and sternoclavicular region are both pending. He is on antibiotics with staph coverage. I discussed in further with the hospitalist and we made a plan to continue to monitor him clinically overnight and consider repeat CT scan of his neck sternal clavicular region and left shoulder in the morning especially if he is not responding clinically to antibiotics. He cannot have an MRI scan because he has a defibrillator. Clinically he is having increased left arm swelling but he does not appear to have worsening severe sepsis. Quality VTE Deep Vein Thrombosis/Pulmonary Embolism Present on Admission: No
[2021-05-05 02:23] LABS: Procalcitonin 0.51 ng/mL (<0.5)
[2021-05-05 02:43] LABS: C-Reactive Protein Quant 30.6 mg/dL (<1.0)
[2021-05-05 03:16] LABS: Troponin I 0.015 ng/mL (0.01-0.034)
[2021-05-05 05:24] LABS: Add Manual Diff / Slide Review NO; Basophils Absolute Auto 0 /uL (0-100); Basophils Percent Auto 0.2 % (0-2); Eosinophils Absolute Auto 100 /uL (0-450); Eosinophils Percent Auto 1.1 % (2-4); Hematocrit 36.8 % (41-53); Hemoglobin 12.1 g/dL (13.5-17.5); Lymphocytes Absolute Auto 600 /uL (1100-4500); Lymphocytes Percent Auto 6.9 % (25-40); Mean Corpuscular Hemoglobin 30.5 PG (26-34); Mean Corpuscular Volume 92.2 fL (80-100); Monocytes Absolute Auto 1200 /uL (0-900); Monocytes Percent Auto 13.3 % (3-14); Neutrophils Absolute Auto 7100 /uL (1500-7000); Neutrophils Percent Auto 78.5 % (50-75); Platelet Count 215 X10^3/uL (150-400); Red Blood Cell Count 3.99 X10^6/uL (4.5-5.9); Red Cell Distribution Width 14.2 % (11.6-14.8)
[2021-05-05 05:38] LABS: Alanine Aminotransferase 16 IU/L (<50); Albumin 2.9 g/dL (3.5-5.0); Alkaline Phosphatase 65 U/L (38-126); Aspartate Aminotransferase 16 IU/L (17-59); BUN Creatinine Ratio 22.4 (6-22); Bilirubin Total 0.5 mg/dL (0.2-1.3); Blood Urea Nitrogen 26 mg/dL (9-20); Calcium 9.2 mg/dL (8.4-10.2); Carbon Dioxide 26 mmol/L (22-32); Chloride 98 mmol/L (98-107); Estimated Glomerular Filt Rate > 60.0 mL/min (>60); Glucose 111 mg/dL (80-110); HEMOLYSIS < 15 (0-50); Potassium 4.4 mmol/L (3.4-5.1); Sodium 130 mmol/L (137-145); Total Protein 5.9 g/dL (6.3-8.2)
[2021-05-05 05:42] LABS: C-Reactive Protein Quant 31.5 mg/dL (<1.0)
[2021-05-05 05:43] LABS: Erythrocyte Sedimentation Rate 67 MM/HR (0-15)
[2021-05-05 05:45] LABS: Troponin I 0.013 ng/mL (0.01-0.034)
[2021-05-05 05:50] LABS: Procalcitonin 0.58 ng/mL (<0.5)
--- NOTE | 2021-05-05 07:47 | PC.NURSE ---
At beginning of noc shift patient noted to have swelling in LUE, including hand with ring on it. Provider made aware, limb elevated and iced. Toradol given to aid in reduction of swelling. IVF paused, provider OKd, saline locked except IV ABX. Ring removed after significant time on ice and lubrication, placed in safe. By the end of shift, swelling had significantly reduced but is still present. Assessed with oncoming nurse at bedside to establish baseline.
[2021-05-05] MEDS: VANCOMYCIN 1,000 MG/200 ML PIGGYBACK 200 MG IV (08:23)
[2021-05-05] MEDS: ENOXAPARIN 40 MG/0.4 ML SYRINGE SUBCUT (08:33)
[2021-05-05] MEDS: lisinopriL 20 MG TABLET PO (08:33)
[2021-05-05] MEDS: ATORVASTATIN 20 MG TABLET PO (08:34)
[2021-05-05] MEDS: carvediloL 12.5 MG TABLET 25 MG PO ×2 (08:34→21:26)
[2021-05-05] MEDS: SODIUM CHLORIDE 0.9% FLUSH 10 ML IV ×2 (08:35→21:26)
[2021-05-05] MEDS: DIGOXIN 0.125 MG TABLET PO (08:35)
[2021-05-05 08:52] LABS: Acinetobacter baumannii Not Detected (Not Detect); Candida albicans Not Detected (Not Detect); Candida glabrata Not Detected (Not Detect); Candida krusei Not Detected (Not Detect); Candida parapsilosis Not Detected (Not Detect); Candida tropicalis Not Detected (Not Detect); E. coli Not Detected (Not Detect); Enterobacter cloacae complex Not Detected (Not Detect); Enterobacteriaceae species Not Detected (Not Detect); Enterococcus species Not Detected (Not Detect); Haemophilus influenzae Not Detected (Not Detect); Listeria monocytogenes Not Detected (Not Detect); Methicillin-resistant gene Not Detected (Not Detect); Neisseria meningitidis Not Detected (Not Detect); Proteus species Not Detected (Not Detect); Pseudomonas aeruginosa Not Detected (Not Detect); Serratia marcescens Not Detected (Not Detect); Staphylococcus species Detected (Not Detect); Streptococcus agalactiae (Gr B Not Detected (Not Detect); Streptococcus pneumonia Not Detected (Not Detect); Streptococcus pyogenes (Gr A) Not Detected (Not Detect); Streptococcus species Not Detected (Not Detect)
--- NOTE | 2021-05-05 09:03 | DI.CT.S_ITS ---
PROCEDURE: CT SOFT TISSUE NECK W CON INDICATIONS: fever, bacteremia, sternoclavicular swelling, hx spine surg TECHNIQUE: After the administration of intravenous contrast, 3.0 mm axial sections acquired from the sella to the aortic arch. Additional oblique axial 3.0 mm sections acquired through the pharynx. 3 mm thick coronal and sagittal reformats were generated. For radiation dose reduction, the following was used: automated exposure control. COMPARISON: None. FINDINGS: Image quality: Excellent. Lymph nodes: No enlarged lymph nodes seen throughout the neck. Vessels: Visualized vasculature appears patent. Neck spaces: The oropharynx, nasopharynx, and pharynx demonstrate no mucosal lesions. The vocal cords, false vocal cords, pyriform sinuses, epiglottis, vallecula, and tongue base all appear normal. There is moderate soft tissue swelling surrounding the left clavicular manubrial junction, spanning roughly 55 mm anteroposterior. There is mild surrounding fat stranding. Glands: The parotid and submandibular glands appear normal. 11 mm diameter nodule within the right thyroid lobe posteriorly. Miscellaneous: Visualized brain and orbits appear normal. Lung apices appear clear. Superficial soft tissues appear normal. Bones: No suspicious bony lesions. Visualized sinuses and mastoids appear unremarkable. IMPRESSION: 1. Soft tissue swelling surrounding the left clavicular manubrial junction, consistent with infection, given the clinical history. Underlying clavicular manubrial effusion may also be present. 2. Right thyroid nodule. Initial further assessment with nonemergent outpatient follow-up ultrasound is recommended. Dictated by: Fabian Alanis M.D. on 05/05/2021 at 8:59 Approved by: Fabian Alanis M.D. on 05/05/2021 at 9:01
--- NOTE | 2021-05-05 09:06 | DI.CT.S_ITS ---
PROCEDURE: CT CHEST W CON INDICATIONS: L shoulder and arm pain/swelling, please image shoulder also TECHNIQUE: After the administration of intravenous contrast, 5 mm thick sections acquired from the pulmonary apices to the posterior costophrenic angles. 1 mm axial lung, 5 mm thick coronal and sagittal reformats and 7 mm axial MIP were acquired. For radiation dose reduction, the following was used: automated exposure control, adjustment of mA and/or kV according to patient size. COMPARISON: [facility], CT, CT CHEST ABD PEL W CON, 05/04/2021, 16:18. FINDINGS: Image quality: Excellent. Lungs and pleura: Mild left dependent basilar atelectasis versus pneumonia is unchanged. No pleural effusions or pneumothorax. Central and peripheral airways are patent and normal in caliber. Mediastinum: Heart size is normal. No pericardial effusion. No mediastinal or hilar adenopathy by size criteria. Thoracic aorta and central pulmonary arteries are normal in size. Esophagus is normal in caliber. No hiatal hernia. Bones and chest wall: Soft tissue swelling surrounding the left clavicular manubrial joint is present, as before. Underlying effusion may be present. No suspicious bony lesions. No vertebral body compression fractures. No axillary or supraclavicular adenopathy by size criteria. 11 mm right posterior thyroid nodule is present, as before. Abdomen: Visualized upper abdominal solid organs appear normal. Upper abdominal bowel loops are normal in caliber. IMPRESSION: 1. No significant change in soft tissue swelling with possible joint effusion surrounding the left clavicular manubrial joint, compared to 05/04/2021 at 16:18 hours. Finding is consistent with infection, given the clinical history. 2. No significant change in right thyroid nodule compared to 05/04/2021 at 16:18 hours. Further assessment with nonemergent outpatient follow-up ultrasound is recommended. 3. No significant change in mild left lower lobe atelectasis versus pneumonia compared to 05/04/2021 at 16:18 hours. Dictated by: Fabian Alanis M.D. on 05/05/2021 at 9:01 Approved by: Fabian Alanis M.D. on 05/05/2021 at 9:05
--- NOTE | 2021-05-05 09:26 | CM.DANOTE ---
DCP:Case received, EMR reviewed and met with patient. , Joy, was also at bedside. Introduced self and role. Was able to obtain information regarding patient's baseline activity level prior to hospitalization, as well as his current living situation. DCP assessment completed with information currently available. Patient is a 76 year old male who admitted yesterday evening to the care of the hospitalist team. PCP: Dr. Barlow (In [place]). Payer: confirmed: [employer] [place]. Patient came to the hospital via private vehicle secondary to left shoulder pain, as well as positive lab results. Patient had been here at the hospital recently on , y to a recent fall on his boat and left shoulder injury. Patient had gone home with a sling. Blood cultures had been pending, and when results came in, noted bacteremia. Patient is here on IV antibiotics. Met with patient and . They are both traveling from [place] in their RV. They have been staying in the [facility] area on his sister's property. Patient is active, he does have history of cardiac issues, has an implanted defibrillator, which is the reason he can't have an MRI. P: DCP to continue to follow. Will be available for any resources needed. Goal is for home, but on oral ABO. Will also see how he does with therapy. Priscilla Ching RN/[employer] Development Manager
--- NOTE | 2021-05-05 11:02 | PM.PN.1 ---
Subjective Subjective Interval history: He continues to note ongoing significant left shoulder pain. His swelling in his left arm is slightly decreased in comparison to previously. He has pain with attempted extension of his left shoulder and he is still having substantial pain over his left clavicle and sternal clavicular joint. Exam Vital Signs (past 8 hours): - 05/05/21 04:50 05/05/21 05:00 05/05/21 07:15 Temperature 98.6 F Pulse Rate 86 Pulse Rate [Orthostatic Lying] 86 84 Pulse Rate [Orthostatic Sitting] 86 87 Pulse Rate [Orthostatic Standing] 90 88 Respiratory Rate 16 Blood Pressure 129/67 Blood Pressure [Orthostatic Lying] 129/67 140/76 Blood Pressure [Orthostatic Sitting] 133/74 132/76 Blood Pressure [Orthostatic Standing] 129/71 131/74 Pulse Oximetry 97 95 05/05/21 08:25 05/05/21 08:33 05/05/21 08:34 Temperature 98.6 F Pulse Rate 84 84 84 Pulse Rate [Orthostatic Lying] Pulse Rate [Orthostatic Sitting] Pulse Rate [Orthostatic Standing] Respiratory Rate 18 Blood Pressure 133/70 140/76 140/76 Blood Pressure [Orthostatic Lying] Blood Pressure [Orthostatic Sitting] Blood Pressure [Orthostatic Standing] Pulse Oximetry 97 05/05/21 08:35 05/05/21 10:18 Temperature Pulse Rate 84 63 Pulse Rate [Orthostatic Lying] Pulse Rate [Orthostatic Sitting] Pulse Rate [Orthostatic Standing] Respiratory Rate 16 Blood Pressure 140/76 Blood Pressure [Orthostatic Lying] Blood Pressure [Orthostatic Sitting] Blood Pressure [Orthostatic Standing] Pulse Oximetry 98 Oxygen Delivery Method Room Air Oxygen Flow Rate 0 Narrative Exam Narrative: He is alert and oriented, he is uncomfortable but not diaphoretic in bed, has fairly mild pain with gentle range of motion of his neck. There is moderate swelling over his left sternoclavicular joint and some swelling in the supraclavicular area, his left shoulder glenohumeral range of motion is slightly improved in comparison to his exam at 2 in the morning, his left upper extremity edema is decreased some in comparison to his previous exam, he is able to move his finger flexors and extensors wrist flexors and extensors has restricted range of motion in the left total elbow with some moderate pain there is generalized edema in the brachium and left elbow, there is mild swelling in the left shoulder the glenohumeral region but no evidence of fluctuance there is no erythema there is erythema over his medial aspect of his clavicle and sternal clavicular joint, there was no specific fluctuance Objective Imaging CT scan - chest: My impression: No new specific fluid collection, persistent swelling in the sternoclavicular region. I discussed that both with a reading radiologist as well as the interventional radiologist engineering operations leader and we did not feel that there was a specific fluid collection that would be amenable to aspiration or drainage. His left shoulder glenohumeral joint and rotator cuff region does not show any new significant change. Labs Result Diagrams: 05/05/21 05:10 05/05/21 05:10 Labs: Laboratory Results - last 24 hr 05/04/21 05/04/21 05/04/21 13:00 13:00 13:00 WBC 9.6 RBC 4.13 L Hgb 12.7 L Hct 38.2 L MCV 92.6 MCH 30.8 MCHC 33.3 RDW 14.0 Plt Count 226 Neut % (Auto) 82.0 H Lymph % (Auto) 4.4 L [place] % (Auto) 12.5 Eos % (Auto) 1.0 L Baso % (Auto) 0.1 Neut # (Auto) 7800 H Lymph # (Auto) 400 L [place] # (Auto) 1200 H Eos # (Auto) 100 Baso # (Auto) 0 ESR D-Dimer Sodium 126 L Potassium 4.8 Chloride 94 L Carbon Dioxide 27 BUN 29 H Creatinine 1.03 Estimated GFR > 60.0 BUN/Creatinine Ratio 28.2 H Glucose 199 H Hemoglobin A1c Lactate 1.0 Calcium 9.6 Magnesium Total Bilirubin 0.6 AST 18 ALT 18 Alkaline Phosphatase 66 Total Creatine Kinase 61 CK-MB (CK-2) TNP CK-MB (CK-2) Rel Index TNP Troponin I < 0.012 C-Reactive Protein NT-Pro-B Natriuret Pep Total Protein 6.3 Albumin 3.3 L Globulin 3.0 Albumin/Globulin Ratio 1.1 Procalcitonin 0.43 Urine Color Urine Appearance Urine pH Ur Specific [place] Urine Protein Urine Glucose (UA) Urine Ketones Urine Occult Blood Urine Nitrate Urine Bilirubin Urine Urobilinogen Ur Leukocyte Esterase Urine RBC Urine WBC Ur Squamous Epith Cells Ur Transition Epith Cell Urine Bacteria Ur Culture Indicated? Fluid Color Fluid Appearance Fluid RBC Fld Tot Nucleated Cell Fluid Polynuclear WBCs Fluid Mononuclear WBCs Fluid Eosinophils Fluid Other Cells Body Fluid Clot Fluid Glucose Fluid Total Protein A. baumannii (PCR) [place] albicans (PCR) C. glabrata (PCR) C. krusei (PCR) C. parapsilosis (PCR) C. tropicalis (PCR) SARS-CoV-2 (PCR) Enterobacteriac sp PCR E. cloacae complex PCR Enterococcus sp PCR E. coli (PCR) H. influenzae (PCR) Klebsiella oxytoca PCR Klebsiella pneumoniae List. monocytogenes PCR N. meningitidis (PCR) Proteus species (PCR) Serratia marcescens PCR Staphylococcus sp PCR Staph aureus (PCR) mecA-Methicil Res Gene Streptococcus sp PCR Group A Strep (PCR) Strep agalactiae (PCR) Strep pneumoniae (PCR) P. aeruginosa (PCR) [place]/B-Vanco Res Genes KPC-Carbap Res Gene PCR 05/04/21 05/04/21 05/04/21 13:00 13:00 13:00 WBC RBC Hgb Hct MCV MCH MCHC RDW Plt Count Neut % (Auto) Lymph % (Auto) [place] % (Auto) Eos % (Auto) Baso % (Auto) Neut # (Auto) Lymph # (Auto) [place] # (Auto) Eos # (Auto) Baso # (Auto) ESR 45 H D-Dimer Sodium Potassium Chloride Carbon Dioxide BUN Creatinine Estimated GFR BUN/Creatinine Ratio Glucose Hemoglobin A1c 5.8 Lactate Calcium Magnesium Total Bilirubin AST ALT Alkaline Phosphatase Total Creatine Kinase CK-MB (CK-2) CK-MB (CK-2) Rel Index Troponin I C-Reactive Protein 29.8 H NT-Pro-B Natriuret Pep Total Protein Albumin Globulin Albumin/Globulin Ratio Procalcitonin Urine Color Urine Appearance Urine pH Ur Specific [place] Urine Protein Urine Glucose (UA) Urine Ketones Urine Occult Blood Urine Nitrate Urine Bilirubin Urine Urobilinogen Ur Leukocyte Esterase Urine RBC Urine WBC Ur Squamous Epith Cells Ur Transition Epith Cell Urine Bacteria Ur Culture Indicated? Fluid Color Fluid Appearance Fluid RBC Fld Tot Nucleated Cell Fluid Polynuclear WBCs Fluid Mononuclear WBCs Fluid Eosinophils Fluid Other Cells Body Fluid Clot Fluid Glucose Fluid Total Protein A. baumannii (PCR) [place] albicans (PCR) C. glabrata (PCR) C. krusei (PCR) C. parapsilosis (PCR) C. tropicalis (PCR) SARS-CoV-2 (PCR) Enterobacteriac sp PCR E. cloacae complex PCR Enterococcus sp PCR E. coli (PCR) H. influenzae (PCR) Klebsiella oxytoca PCR Klebsiella pneumoniae List. monocytogenes PCR N. meningitidis (PCR) Proteus species (PCR) Serratia marcescens PCR Staphylococcus sp PCR Staph aureus (PCR) mecA-Methicil Res Gene Streptococcus sp PCR Group A Strep (PCR) Strep agalactiae (PCR) Strep pneumoniae (PCR) P. aeruginosa (PCR) [place]/B-Vanco Res Genes KPC-Carbap Res Gene PCR 05/04/21 05/04/21 05/04/21 13:00 13:00 15:30 WBC RBC Hgb Hct MCV MCH MCHC RDW Plt Count Neut % (Auto) Lymph % (Auto) [place] % (Auto) Eos % (Auto) Baso % (Auto) Neut # (Auto) Lymph # (Auto) [place] # (Auto) Eos # (Auto) Baso # (Auto) ESR D-Dimer Sodium Potassium Chloride Carbon Dioxide BUN Creatinine Estimated GFR BUN/Creatinine Ratio Glucose Hemoglobin A1c Lactate Calcium Magnesium 2.1 Total Bilirubin AST ALT Alkaline Phosphatase Total Creatine Kinase CK-MB (CK-2) CK-MB (CK-2) Rel Index Troponin I C-Reactive Protein NT-Pro-B Natriuret Pep Total Protein Albumin Globulin Albumin/Globulin Ratio Procalcitonin Urine Color Yellow Urine Appearance Clear Urine pH 5.0 Ur Specific [place] <=1.005 Urine Protein Trace H Urine Glucose (UA) Negative Urine Ketones Negative Urine Occult Blood Negative Urine Nitrate Negative Urine Bilirubin Negative Urine Urobilinogen 0.2 Ur Leukocyte Esterase Negative Urine RBC None seen Urine WBC 0-1/hpf Ur Squamous Epith Cells 5-10 /hpf H Ur Transition Epith Cell 1-5/hpf Urine Bacteria None seen Ur Culture Indicated? Cult not indicated Fluid Color Fluid Appearance Fluid RBC Fld Tot Nucleated Cell Fluid Polynuclear WBCs Fluid Mononuclear WBCs Fluid Eosinophils Fluid Other Cells Body Fluid Clot Fluid Glucose Fluid Total Protein A. baumannii (PCR) Not detected [place] albicans (PCR) Not detected C. glabrata (PCR) Not detected C. krusei (PCR) Not detected C. parapsilosis (PCR) Not detected C. tropicalis (PCR) Not detected SARS-CoV-2 (PCR) Enterobacteriac sp PCR Not detected E. cloacae complex PCR Not detected Enterococcus sp PCR Not detected E. coli (PCR) Not detected H. influenzae (PCR) Not detected Klebsiella oxytoca PCR Not detected Klebsiella pneumoniae Not detected List. monocytogenes PCR Not detected N. meningitidis (PCR) Not detected Proteus species (PCR) Not detected Serratia marcescens PCR Not detected Staphylococcus sp PCR Detected H Staph aureus (PCR) Detected H mecA-Methicil Res Gene Not detected Streptococcus sp PCR Not detected Group A Strep (PCR) Not detected Strep agalactiae (PCR) Not detected Strep pneumoniae (PCR) Not detected P. aeruginosa (PCR) Not detected [place]/B-Vanco Res Genes Not Reportable KPC-Carbap Res Gene PCR Not Reportable 05/04/21 05/04/21 05/04/21 16:10 16:10 16:20 WBC RBC Hgb Hct MCV MCH MCHC RDW Plt Count Neut % (Auto) Lymph % (Auto) [place] % (Auto) Eos % (Auto) Baso % (Auto) Neut # (Auto) Lymph # (Auto) [place] # (Auto) Eos # (Auto) Baso # (Auto) ESR D-Dimer Sodium Potassium Chloride Carbon Dioxide BUN Creatinine Estimated GFR BUN/Creatinine Ratio Glucose Hemoglobin A1c Lactate Calcium Magnesium Total Bilirubin AST ALT Alkaline Phosphatase Total Creatine Kinase CK-MB (CK-2) CK-MB (CK-2) Rel Index Troponin I C-Reactive Protein NT-Pro-B Natriuret Pep Total Protein Albumin Globulin Albumin/Globulin Ratio Procalcitonin Urine Color Urine Appearance Urine pH Ur Specific [place] Urine Protein Urine Glucose (UA) Urine Ketones Urine Occult Blood Urine Nitrate Urine Bilirubin Urine Urobilinogen Ur Leukocyte Esterase Urine RBC Urine WBC Ur Squamous Epith Cells Ur Transition Epith Cell Urine Bacteria Ur Culture Indicated? Fluid Color [place] Fluid Appearance Slightly cloudy Fluid RBC Fld Tot Nucleated Cell 4092 Fluid Polynuclear WBCs 43 Fluid Mononuclear WBCs 57 Fluid Eosinophils 0 Fluid Other Cells 0 Body Fluid Clot No clots present Fluid Glucose 195 Fluid Total Protein 3.3 A. baumannii (PCR) [place] albicans (PCR) C. glabrata (PCR) C. krusei (PCR) C. parapsilosis (PCR) C. tropicalis (PCR) SARS-CoV-2 (PCR) Negative Enterobacteriac sp PCR E. cloacae complex PCR Enterococcus sp PCR E. coli (PCR) H. influenzae (PCR) Klebsiella oxytoca PCR Klebsiella pneumoniae List. monocytogenes PCR N. meningitidis (PCR) Proteus species (PCR) Serratia marcescens PCR Staphylococcus sp PCR Staph aureus (PCR) mecA-Methicil Res Gene Streptococcus sp PCR Group A Strep (PCR) Strep agalactiae (PCR) Strep pneumoniae (PCR) P. aeruginosa (PCR) [place]/B-Vanco Res Genes KPC-Carbap Res Gene PCR 05/04/21 05/05/21 05/05/21 22:10 01:40 01:40 WBC RBC Hgb Hct MCV MCH MCHC RDW Plt Count Neut % (Auto) Lymph % (Auto) [place] % (Auto) Eos % (Auto) Baso % (Auto) Neut # (Auto) Lymph # (Auto) [place] # (Auto) Eos # (Auto) Baso # (Auto) ESR D-Dimer 977 H Sodium 129 L Potassium 5.0 Chloride 98 Carbon Dioxide 25 BUN 25 H Creatinine 0.97 Estimated GFR > 60.0 BUN/Creatinine Ratio 25.8 H Glucose 140 H Hemoglobin A1c Lactate Calcium 9.2 Magnesium Total Bilirubin 0.5 AST 18 ALT 16 Alkaline Phosphatase 64 Total Creatine Kinase CK-MB (CK-2) CK-MB (CK-2) Rel Index Troponin I C-Reactive Protein 30.6 H NT-Pro-B Natriuret Pep 567 H Total Protein 6.0 L Albumin 3.0 L Globulin 3.0 Albumin/Globulin Ratio 1.0 Procalcitonin 0.51 H Urine Color Yellow Urine Appearance Clear Urine pH 5.0 Ur Specific [place] <=1.005 Urine Protein 1+ H Urine Glucose (UA) Negative Urine Ketones Trace H Urine Occult Blood Trace-lysed Urine Nitrate Negative Urine Bilirubin Negative Urine Urobilinogen 0.2 Ur Leukocyte Esterase Negative Urine RBC None seen Urine WBC None seen Ur Squamous Epith Cells Ur Transition Epith Cell Urine Bacteria None seen Ur Culture Indicated? Cult not indicated Fluid Color Fluid Appearance Fluid RBC Fld Tot Nucleated Cell Fluid Polynuclear WBCs Fluid Mononuclear WBCs Fluid Eosinophils Fluid Other Cells Body Fluid Clot Fluid Glucose Fluid Total Protein A. baumannii (PCR) [place] albicans (PCR) C. glabrata (PCR) C. krusei (PCR) C. parapsilosis (PCR) C. tropicalis (PCR) SARS-CoV-2 (PCR) Enterobacteriac sp PCR E. cloacae complex PCR Enterococcus sp PCR E. coli (PCR) H. influenzae (PCR) Klebsiella oxytoca PCR Klebsiella pneumoniae List. monocytogenes PCR N. meningitidis (PCR) Proteus species (PCR) Serratia marcescens PCR Staphylococcus sp PCR Staph aureus (PCR) mecA-Methicil Res Gene Streptococcus sp PCR Group A Strep (PCR) Strep agalactiae (PCR) Strep pneumoniae (PCR) P. aeruginosa (PCR) [place]/B-Vanco Res Genes KPC-Carbap Res Gene PCR 05/05/21 05/05/21 05/05/21 01:40 01:40 05:10 WBC 9.5 9.0 RBC 3.99 L 3.99 L Hgb 12.3 L 12.1 L Hct 37.0 L 36.8 L MCV 92.7 92.2 MCH 30.8 30.5 MCHC 33.3 33.0 RDW 14.2 14.2 Plt Count 231 215 Neut % (Auto) 81.4 H 78.5 H Lymph % (Auto) 5.8 L 6.9 L [place] % (Auto) 12.4 13.3 Eos % (Auto) 0.3 L 1.1 L Baso % (Auto) 0.1 0.2 Neut # (Auto) 7700 H 7100 H Lymph # (Auto) 500 L 600 L [place] # (Auto) 1200 H 1200 H Eos # (Auto) 0 100 Baso # (Auto) 0 0 ESR 77 H D D-Dimer Sodium Potassium Chloride Carbon Dioxide BUN Creatinine Estimated GFR BUN/Creatinine Ratio Glucose Hemoglobin A1c Lactate Calcium Magnesium Total Bilirubin AST ALT Alkaline Phosphatase Total Creatine Kinase CK-MB (CK-2) CK-MB (CK-2) Rel Index Troponin I 0.015 C-Reactive Protein NT-Pro-B Natriuret Pep Total Protein Albumin Globulin Albumin/Globulin Ratio Procalcitonin Urine Color Urine Appearance Urine pH Ur Specific [place] Urine Protein Urine Glucose (UA) Urine Ketones Urine Occult Blood Urine Nitrate Urine Bilirubin Urine Urobilinogen Ur Leukocyte Esterase Urine RBC Urine WBC Ur Squamous Epith Cells Ur Transition Epith Cell Urine Bacteria Ur Culture Indicated? Fluid Color Fluid Appearance Fluid RBC Fld Tot Nucleated Cell Fluid Polynuclear WBCs Fluid Mononuclear WBCs Fluid Eosinophils Fluid Other Cells Body Fluid Clot Fluid Glucose Fluid Total Protein A. baumannii (PCR) [place] albicans (PCR) C. glabrata (PCR) C. krusei (PCR) C. parapsilosis (PCR) C. tropicalis (PCR) SARS-CoV-2 (PCR) Enterobacteriac sp PCR E. cloacae complex PCR Enterococcus sp PCR E. coli (PCR) H. influenzae (PCR) Klebsiella oxytoca PCR Klebsiella pneumoniae List. monocytogenes PCR N. meningitidis (PCR) Proteus species (PCR) Serratia marcescens PCR Staphylococcus sp PCR Staph aureus (PCR) mecA-Methicil Res Gene Streptococcus sp PCR Group A Strep (PCR) Strep agalactiae (PCR) Strep pneumoniae (PCR) P. aeruginosa (PCR) [place]/B-Vanco Res Genes KPC-Carbap Res Gene PCR 05/05/21 05/05/21 05/05/21 05:10 05:10 05:10 WBC RBC Hgb Hct MCV MCH MCHC RDW Plt Count Neut % (Auto) Lymph % (Auto) [place] % (Auto) Eos % (Auto) Baso % (Auto) Neut # (Auto) Lymph # (Auto) [place] # (Auto) Eos # (Auto) Baso # (Auto) ESR 67 H D-Dimer Sodium 130 L Potassium 4.4 Chloride 98 Carbon Dioxide 26 BUN 26 H Creatinine 1.16 Estimated GFR > 60.0 BUN/Creatinine Ratio 22.4 H Glucose 111 H Hemoglobin A1c Lactate Calcium 9.2 Magnesium Total Bilirubin 0.5 AST 16 L ALT 16 Alkaline Phosphatase 65 Total Creatine Kinase CK-MB (CK-2) CK-MB (CK-2) Rel Index Troponin I 0.013 C-Reactive Protein 31.5 H NT-Pro-B Natriuret Pep Total Protein 5.9 L Albumin 2.9 L Globulin 3.0 Albumin/Globulin Ratio 1.0 Procalcitonin Urine Color Urine Appearance Urine pH Ur Specific [place] Urine Protein Urine Glucose (UA) Urine Ketones Urine Occult Blood Urine Nitrate Urine Bilirubin Urine Urobilinogen Ur Leukocyte Esterase Urine RBC Urine WBC Ur Squamous Epith Cells Ur Transition Epith Cell Urine Bacteria Ur Culture Indicated? Fluid Color Fluid Appearance Fluid RBC Fld Tot Nucleated Cell Fluid Polynuclear WBCs Fluid Mononuclear WBCs Fluid Eosinophils Fluid Other Cells Body Fluid Clot Fluid Glucose Fluid Total Protein A. baumannii (PCR) [place] albicans (PCR) C. glabrata (PCR) C. krusei (PCR) C. parapsilosis (PCR) C. tropicalis (PCR) SARS-CoV-2 (PCR) Enterobacteriac sp PCR E. cloacae complex PCR Enterococcus sp PCR E. coli (PCR) H. influenzae (PCR) Klebsiella oxytoca PCR Klebsiella pneumoniae List. monocytogenes PCR N. meningitidis (PCR) Proteus species (PCR) Serratia marcescens PCR Staphylococcus sp PCR Staph aureus (PCR) mecA-Methicil Res Gene Streptococcus sp PCR Group A Strep (PCR) Strep agalactiae (PCR) Strep pneumoniae (PCR) P. aeruginosa (PCR) [place]/B-Vanco Res Genes KPC-Carbap Res Gene PCR 05/05/21 05/05/21 05:10 08:40 WBC RBC Hgb Hct MCV MCH MCHC RDW Plt Count Neut % (Auto) Lymph % (Auto) [place] % (Auto) Eos % (Auto) Baso % (Auto) Neut # (Auto) Lymph # (Auto) [place] # (Auto) Eos # (Auto) Baso # (Auto) ESR D-Dimer Sodium Potassium Chloride Carbon Dioxide BUN Creatinine Estimated GFR BUN/Creatinine Ratio Glucose Hemoglobin A1c Lactate 1.0 Calcium Magnesium Total Bilirubin AST ALT Alkaline Phosphatase Total Creatine Kinase CK-MB (CK-2) CK-MB (CK-2) Rel Index Troponin I C-Reactive Protein NT-Pro-B Natriuret Pep Total Protein Albumin Globulin Albumin/Globulin Ratio Procalcitonin 0.58 H Urine Color Urine Appearance Urine pH Ur Specific [place] Urine Protein Urine Glucose (UA) Urine Ketones Urine Occult Blood Urine Nitrate Urine Bilirubin Urine Urobilinogen Ur Leukocyte Esterase Urine RBC Urine WBC Ur Squamous Epith Cells Ur Transition Epith Cell Urine Bacteria Ur Culture Indicated? Fluid Color Fluid Appearance Fluid RBC Fld Tot Nucleated Cell Fluid Polynuclear WBCs Fluid Mononuclear WBCs Fluid Eosinophils Fluid Other Cells Body Fluid Clot Fluid Glucose Fluid Total Protein A. baumannii (PCR) [place] albicans (PCR) C. glabrata (PCR) C. krusei (PCR) C. parapsilosis (PCR) C. tropicalis (PCR) SARS-CoV-2 (PCR) Enterobacteriac sp PCR E. cloacae complex PCR Enterococcus sp PCR E. coli (PCR) H. influenzae (PCR) Klebsiella oxytoca PCR Klebsiella pneumoniae List. monocytogenes PCR N. meningitidis (PCR) Proteus species (PCR) Serratia marcescens PCR Staphylococcus sp PCR Staph aureus (PCR) mecA-Methicil Res Gene Streptococcus sp PCR Group A Strep (PCR) Strep agalactiae (PCR) Strep pneumoniae (PCR) P. 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 History of tibial fracture Lower extremity edema Presence of combination internal cardiac defibrillator (ICD) and pacemaker Surgical History (Updated 05/04/21 @ 22:23 by CASE MarinelliBRANDT) H/O cervical spine surgery History of bilateral knee replacement History of foot surgery Family History (Updated 05/04/21 @ 22:25 [facility] Mother Congestive heart failure Father Blood clots in brain Stroke Social History household members: spouse Smoking Status: Never smoker Assessment & Plan Assessment & Plan narrative: Left shoulder plain with inflammatory left sternoclavicular joint and possible septic left sternoclavicular joint. His cultures are pending. He has additional repeat positive blood cultures. I coordinated care with Medicine, General surgery, radiology and Interventional Radiology. There does not appear to be a discrete abscess or fluid collection amenable to operative or interventional radiology drainage at this point. He is getting a little bit better. He does not appear to be acutely toxic or have severe sepsis today. He is on antibiotics. Repeat blood cultures were positive for Staph aureus. I discussed with physical therapy that it is okay for him to gently mobilize. Were going to work on edema control in the left upper extremity. He is going to continue on IV antibiotics. He has an echo pending and has a history of endocarditis which they thought likely was viral. Quality VTE Deep Vein Thrombosis/Pulmonary Embolism Present on Admission: No
[2021-05-05] MEDS: ACETAMINOPHEN 325 MG TABLET 650 MG PO (11:35)
--- NOTE | 2021-05-05 12:03 | PM.CN ---
History of Present Illness Consult details Chief complaint: TORN SHOULDER Narrative: 76M admitted for possible left sternoclavicular joint infection and bactermia. Injured his left shoulder several days ago while reaching for something. Arrived to ER yesterday with left shoulder pain and arm swelling, was febrile multiple blood cultures positive for Staph aureus. CT Chest demonstrated fluid and inflamatory changes around the left sternoclvavicular joint. Duplex no DVT. Now recieving Vancomycin and Zosyn. Today WBC 9.0 , 79% neutrophils, hemodynamically normal afebrile for the past 24 hrs. Orthopedic surgery requesting help should he require operative drainage of the joint. He feels better than 24 hrs ago notes lest arm swelling and less shoulder pain. No previous similar episodes. No open wounds. Meds Home Medications and Allergies Home Medications Medication Instructions Recorded Confirmed Type cephalexin 500 mg capsule 500 mg PO Q6H 7 Days #28 cap 05/03/21 05/04/21 Rx oxycodone 5 mg tablet 5 mg PO Q4-6H PRN #20 tab 05/03/21 05/04/21 Rx oxycodone-acetaminophen 5 mg-300 1 tab PO Q8H PRN #20 tab 05/03/21 05/04/21 Rx mg tablet Incruse Ellipta 18 mg INHALATION DIRECTED PRN 05/04/21 05/04/21 History Symbicort See Rx Instructions .ROUTE .COMPLEX 05/04/21 05/04/21 History aspirin 325 mg PO DAILY 05/04/21 05/04/21 History carvedilol 25 mg PO 1-2XD 05/04/21 05/04/21 History digoxin 125 mcg (0.125 mg) tablet 125 mcg PO DAILY 05/04/21 05/04/21 History furosemide 20 mg tablet (Lasix) 20 mg PO DAILY 05/04/21 05/04/21 History lisinopril 20 mg tablet 20 mg PO DAILY 05/04/21 05/04/21 History rosuvastatin 10 mg tablet (Crestor) 10 mg PO DAILY 05/04/21 05/04/21 History Allergies Allergy/AdvReac Type Severity Reaction Status Date / Time latex Allergy Verified 05/04/21 12:03 Review of Systems Review of Systems ROS: Yes All systems reviewed with the patient and are negative except as otherwise documented Exam Vital Signs (past 8 hours): - 05/05/21 04:50 05/05/21 05:00 05/05/21 07:15 Temperature 98.6 F Pulse Rate 86 Pulse Rate [Orthostatic Lying] 86 84 Pulse Rate [Orthostatic Sitting] 86 87 Pulse Rate [Orthostatic Standing] 90 88 Respiratory Rate 16 Blood Pressure 129/67 Blood Pressure [Orthostatic Lying] 129/67 140/76 Blood Pressure [Orthostatic Sitting] 133/74 132/76 Blood Pressure [Orthostatic Standing] 129/71 131/74 Pulse Oximetry 97 95 05/05/21 08:25 05/05/21 08:33 05/05/21 08:34 Temperature 98.6 F Pulse Rate 84 84 84 Pulse Rate [Orthostatic Lying] Pulse Rate [Orthostatic Sitting] Pulse Rate [Orthostatic Standing] Respiratory Rate 18 Blood Pressure 133/70 140/76 140/76 Blood Pressure [Orthostatic Lying] Blood Pressure [Orthostatic Sitting] Blood Pressure [Orthostatic Standing] Pulse Oximetry 97 05/05/21 08:35 05/05/21 10:18 Temperature Pulse Rate 84 63 Pulse Rate [Orthostatic Lying] Pulse Rate [Orthostatic Sitting] Pulse Rate [Orthostatic Standing] Respiratory Rate 16 Blood Pressure 140/76 Blood Pressure [Orthostatic Lying] Blood Pressure [Orthostatic Sitting] Blood Pressure [Orthostatic Standing] Pulse Oximetry 98 Oxygen Delivery Method Room Air Oxygen Flow Rate 0 Narrative Exam Narrative: General adult male alert and oriented Left should- Tenderness of the left sternoclavicular joint with palpation, mild erythema no warmth no fluid collection. No open wounds, Chest non larbored resp Abdomen-soft non tender Ext-WWP Objective Labs Result Diagrams: 05/05/21 05:10 05/05/21 05:10 Labs: Laboratory Results - last 24 hr 05/04/21 05/04/21 05/04/21 13:00 13:00 13:00 WBC 9.6 RBC 4.13 L Hgb 12.7 L Hct 38.2 L MCV 92.6 MCH 30.8 MCHC 33.3 RDW 14.0 Plt Count 226 Neut % (Auto) 82.0 H Lymph % (Auto) 4.4 L [place] % (Auto) 12.5 Eos % (Auto) 1.0 L Baso % (Auto) 0.1 Neut # (Auto) 7800 H Lymph # (Auto) 400 L [place] # (Auto) 1200 H Eos # (Auto) 100 Baso # (Auto) 0 ESR D-Dimer Sodium 126 L Potassium 4.8 Chloride 94 L Carbon Dioxide 27 BUN 29 H Creatinine 1.03 Estimated GFR > 60.0 BUN/Creatinine Ratio 28.2 H Glucose 199 H Hemoglobin A1c Lactate 1.0 Calcium 9.6 Magnesium Total Bilirubin 0.6 AST 18 ALT 18 Alkaline Phosphatase 66 Total Creatine Kinase 61 CK-MB (CK-2) TNP CK-MB (CK-2) Rel Index TNP Troponin I < 0.012 C-Reactive Protein NT-Pro-B Natriuret Pep Total Protein 6.3 Albumin 3.3 L Globulin 3.0 Albumin/Globulin Ratio 1.1 Procalcitonin 0.43 Urine Color Urine Appearance Urine pH Ur Specific [place] Urine Protein Urine Glucose (UA) Urine Ketones Urine Occult Blood Urine Nitrate Urine Bilirubin Urine Urobilinogen Ur Leukocyte Esterase Urine RBC Urine WBC Ur Squamous Epith Cells Ur Transition Epith Cell Urine Bacteria Ur Culture Indicated? Fluid Color Fluid Appearance Fluid RBC Fld Tot Nucleated Cell Fluid Polynuclear WBCs Fluid Mononuclear WBCs Fluid Eosinophils Fluid Other Cells Body Fluid Clot Fluid Glucose Fluid Total Protein A. baumannii (PCR) [place] albicans (PCR) C. glabrata (PCR) C. krusei (PCR) C. parapsilosis (PCR) C. tropicalis (PCR) SARS-CoV-2 (PCR) Enterobacteriac sp PCR E. cloacae complex PCR Enterococcus sp PCR E. coli (PCR) H. influenzae (PCR) Klebsiella oxytoca PCR Klebsiella pneumoniae List. monocytogenes PCR N. meningitidis (PCR) Proteus species (PCR) Serratia marcescens PCR Staphylococcus sp PCR Staph aureus (PCR) mecA-Methicil Res Gene Streptococcus sp PCR Group A Strep (PCR) Strep agalactiae (PCR) Strep pneumoniae (PCR) P. aeruginosa (PCR) [place]/B-Vanco Res Genes KPC-Carbap Res Gene PCR 05/04/21 05/04/21 05/04/21 13:00 13:00 13:00 WBC RBC Hgb Hct MCV MCH MCHC RDW Plt Count Neut % (Auto) Lymph % (Auto) [place] % (Auto) Eos % (Auto) Baso % (Auto) Neut # (Auto) Lymph # (Auto) [place] # (Auto) Eos # (Auto) Baso # (Auto) ESR 45 H D-Dimer Sodium Potassium Chloride Carbon Dioxide BUN Creatinine Estimated GFR BUN/Creatinine Ratio Glucose Hemoglobin A1c 5.8 Lactate Calcium Magnesium Total Bilirubin AST ALT Alkaline Phosphatase Total Creatine Kinase CK-MB (CK-2) CK-MB (CK-2) Rel Index Troponin I C-Reactive Protein 29.8 H NT-Pro-B Natriuret Pep Total Protein Albumin Globulin Albumin/Globulin Ratio Procalcitonin Urine Color Urine Appearance Urine pH Ur Specific [place] Urine Protein Urine Glucose (UA) Urine Ketones Urine Occult Blood Urine Nitrate Urine Bilirubin Urine Urobilinogen Ur Leukocyte Esterase Urine RBC Urine WBC Ur Squamous Epith Cells Ur Transition Epith Cell Urine Bacteria Ur Culture Indicated? Fluid Color Fluid Appearance Fluid RBC Fld Tot Nucleated Cell Fluid Polynuclear WBCs Fluid Mononuclear WBCs Fluid Eosinophils Fluid Other Cells Body Fluid Clot Fluid Glucose Fluid Total Protein A. baumannii (PCR) [place] albicans (PCR) C. glabrata (PCR) C. krusei (PCR) C. parapsilosis (PCR) C. tropicalis (PCR) SARS-CoV-2 (PCR) Enterobacteriac sp PCR E. cloacae complex PCR Enterococcus sp PCR E. coli (PCR) H. influenzae (PCR) Klebsiella oxytoca PCR Klebsiella pneumoniae List. monocytogenes PCR N. meningitidis (PCR) Proteus species (PCR) Serratia marcescens PCR Staphylococcus sp PCR Staph aureus (PCR) mecA-Methicil Res Gene Streptococcus sp PCR Group A Strep (PCR) Strep agalactiae (PCR) Strep pneumoniae (PCR) P. aeruginosa (PCR) [place]/B-Vanco Res Genes KPC-Carbap Res Gene PCR 05/04/21 05/04/21 05/04/21 13:00 13:00 15:30 WBC RBC Hgb Hct MCV MCH MCHC RDW Plt Count Neut % (Auto) Lymph % (Auto) [place] % (Auto) Eos % (Auto) Baso % (Auto) Neut # (Auto) Lymph # (Auto) [place] # (Auto) Eos # (Auto) Baso # (Auto) ESR D-Dimer Sodium Potassium Chloride Carbon Dioxide BUN Creatinine Estimated GFR BUN/Creatinine Ratio Glucose Hemoglobin A1c Lactate Calcium Magnesium 2.1 Total Bilirubin AST ALT Alkaline Phosphatase Total Creatine Kinase CK-MB (CK-2) CK-MB (CK-2) Rel Index Troponin I C-Reactive Protein NT-Pro-B Natriuret Pep Total Protein Albumin Globulin Albumin/Globulin Ratio Procalcitonin Urine Color Yellow Urine Appearance Clear Urine pH 5.0 Ur Specific [place] <=1.005 Urine Protein Trace H Urine Glucose (UA) Negative Urine Ketones Negative Urine Occult Blood Negative Urine Nitrate Negative Urine Bilirubin Negative Urine Urobilinogen 0.2 Ur Leukocyte Esterase Negative Urine RBC None seen Urine WBC 0-1/hpf Ur Squamous Epith Cells 5-10 /hpf H Ur Transition Epith Cell 1-5/hpf Urine Bacteria None seen Ur Culture Indicated? Cult not indicated Fluid Color Fluid Appearance Fluid RBC Fld Tot Nucleated Cell Fluid Polynuclear WBCs Fluid Mononuclear WBCs Fluid Eosinophils Fluid Other Cells Body Fluid Clot Fluid Glucose Fluid Total Protein A. baumannii (PCR) Not detected [place] albicans (PCR) Not detected C. glabrata (PCR) Not detected C. krusei (PCR) Not detected C. parapsilosis (PCR) Not detected C. tropicalis (PCR) Not detected SARS-CoV-2 (PCR) Enterobacteriac sp PCR Not detected E. cloacae complex PCR Not detected Enterococcus sp PCR Not detected E. coli (PCR) Not detected H. influenzae (PCR) Not detected Klebsiella oxytoca PCR Not detected Klebsiella pneumoniae Not detected List. monocytogenes PCR Not detected N. meningitidis (PCR) Not detected Proteus species (PCR) Not detected Serratia marcescens PCR Not detected Staphylococcus sp PCR Detected H Staph aureus (PCR) Detected H mecA-Methicil Res Gene Not detected Streptococcus sp PCR Not detected Group A Strep (PCR) Not detected Strep agalactiae (PCR) Not detected Strep pneumoniae (PCR) Not detected P. aeruginosa (PCR) Not detected [place]/B-Vanco Res Genes Not Reportable KPC-Carbap Res Gene PCR Not Reportable 05/04/21 05/04/21 05/04/21 16:10 16:10 16:20 WBC RBC Hgb Hct MCV MCH MCHC RDW Plt Count Neut % (Auto) Lymph % (Auto) [place] % (Auto) Eos % (Auto) Baso % (Auto) Neut # (Auto) Lymph # (Auto) [place] # (Auto) Eos # (Auto) Baso # (Auto) ESR D-Dimer Sodium Potassium Chloride Carbon Dioxide BUN Creatinine Estimated GFR BUN/Creatinine Ratio Glucose Hemoglobin A1c Lactate Calcium Magnesium Total Bilirubin AST ALT Alkaline Phosphatase Total Creatine Kinase CK-MB (CK-2) CK-MB (CK-2) Rel Index Troponin I C-Reactive Protein NT-Pro-B Natriuret Pep Total Protein Albumin Globulin Albumin/Globulin Ratio Procalcitonin Urine Color Urine Appearance Urine pH Ur Specific [place] Urine Protein Urine Glucose (UA) Urine Ketones Urine Occult Blood Urine Nitrate Urine Bilirubin Urine Urobilinogen Ur Leukocyte Esterase Urine RBC Urine WBC Ur Squamous Epith Cells Ur Transition Epith Cell Urine Bacteria Ur Culture Indicated? Fluid Color [place] Fluid Appearance Slightly cloudy Fluid RBC Fld Tot Nucleated Cell 4092 Fluid Polynuclear WBCs 43 Fluid Mononuclear WBCs 57 Fluid Eosinophils 0 Fluid Other Cells 0 Body Fluid Clot No clots present Fluid Glucose 195 Fluid Total Protein 3.3 A. baumannii (PCR) [place] albicans (PCR) C. glabrata (PCR) C. krusei (PCR) C. parapsilosis (PCR) C. tropicalis (PCR) SARS-CoV-2 (PCR) Negative Enterobacteriac sp PCR E. cloacae complex PCR Enterococcus sp PCR E. coli (PCR) H. influenzae (PCR) Klebsiella oxytoca PCR Klebsiella pneumoniae List. monocytogenes PCR N. meningitidis (PCR) Proteus species (PCR) Serratia marcescens PCR Staphylococcus sp PCR Staph aureus (PCR) mecA-Methicil Res Gene Streptococcus sp PCR Group A Strep (PCR) Strep agalactiae (PCR) Strep pneumoniae (PCR) P. aeruginosa (PCR) [place]/B-Vanco Res Genes KPC-Carbap Res Gene PCR 05/04/21 05/05/21 05/05/21 22:10 01:40 01:40 WBC RBC Hgb Hct MCV MCH MCHC RDW Plt Count Neut % (Auto) Lymph % (Auto) [place] % (Auto) Eos % (Auto) Baso % (Auto) Neut # (Auto) Lymph # (Auto) [place] # (Auto) Eos # (Auto) Baso # (Auto) ESR D-Dimer 977 H Sodium 129 L Potassium 5.0 Chloride 98 Carbon Dioxide 25 BUN 25 H Creatinine 0.97 Estimated GFR > 60.0 BUN/Creatinine Ratio 25.8 H Glucose 140 H Hemoglobin A1c Lactate Calcium 9.2 Magnesium Total Bilirubin 0.5 AST 18 ALT 16 Alkaline Phosphatase 64 Total Creatine Kinase CK-MB (CK-2) CK-MB (CK-2) Rel Index Troponin I C-Reactive Protein 30.6 H NT-Pro-B Natriuret Pep 567 H Total Protein 6.0 L Albumin 3.0 L Globulin 3.0 Albumin/Globulin Ratio 1.0 Procalcitonin 0.51 H Urine Color Yellow Urine Appearance Clear Urine pH 5.0 Ur Specific [place] <=1.005 Urine Protein 1+ H Urine Glucose (UA) Negative Urine Ketones Trace H Urine Occult Blood Trace-lysed Urine Nitrate Negative Urine Bilirubin Negative Urine Urobilinogen 0.2 Ur Leukocyte Esterase Negative Urine RBC None seen Urine WBC None seen Ur Squamous Epith Cells Ur Transition Epith Cell Urine Bacteria None seen Ur Culture Indicated? Cult not indicated Fluid Color Fluid Appearance Fluid RBC Fld Tot Nucleated Cell Fluid Polynuclear WBCs Fluid Mononuclear WBCs Fluid Eosinophils Fluid Other Cells Body Fluid Clot Fluid Glucose Fluid Total Protein A. baumannii (PCR) [place] albicans (PCR) C. glabrata (PCR) C. krusei (PCR) C. parapsilosis (PCR) C. tropicalis (PCR) SARS-CoV-2 (PCR) Enterobacteriac sp PCR E. cloacae complex PCR Enterococcus sp PCR E. coli (PCR) H. influenzae (PCR) Klebsiella oxytoca PCR Klebsiella pneumoniae List. monocytogenes PCR N. meningitidis (PCR) Proteus species (PCR) Serratia marcescens PCR Staphylococcus sp PCR Staph aureus (PCR) mecA-Methicil Res Gene Streptococcus sp PCR Group A Strep (PCR) Strep agalactiae (PCR) Strep pneumoniae (PCR) P. aeruginosa (PCR) [place]/B-Vanco Res Genes KPC-Carbap Res Gene PCR 05/05/21 05/05/21 05/05/21 01:40 01:40 05:10 WBC 9.5 9.0 RBC 3.99 L 3.99 L Hgb 12.3 L 12.1 L Hct 37.0 L 36.8 L MCV 92.7 92.2 MCH 30.8 30.5 MCHC 33.3 33.0 RDW 14.2 14.2 Plt Count 231 215 Neut % (Auto) 81.4 H 78.5 H Lymph % (Auto) 5.8 L 6.9 L [place] % (Auto) 12.4 13.3 Eos % (Auto) 0.3 L 1.1 L Baso % (Auto) 0.1 0.2 Neut # (Auto) 7700 H 7100 H Lymph # (Auto) 500 L 600 L [place] # (Auto) 1200 H 1200 H Eos # (Auto) 0 100 Baso # (Auto) 0 0 ESR 77 H D D-Dimer Sodium Potassium Chloride Carbon Dioxide BUN Creatinine Estimated GFR BUN/Creatinine Ratio Glucose Hemoglobin A1c Lactate Calcium Magnesium Total Bilirubin AST ALT Alkaline Phosphatase Total Creatine Kinase CK-MB (CK-2) CK-MB (CK-2) Rel Index Troponin I 0.015 C-Reactive Protein NT-Pro-B Natriuret Pep Total Protein Albumin Globulin Albumin/Globulin Ratio Procalcitonin Urine Color Urine Appearance Urine pH Ur Specific [place] Urine Protein Urine Glucose (UA) Urine Ketones Urine Occult Blood Urine Nitrate Urine Bilirubin Urine Urobilinogen Ur Leukocyte Esterase Urine RBC Urine WBC Ur Squamous Epith Cells Ur Transition Epith Cell Urine Bacteria Ur Culture Indicated? Fluid Color Fluid Appearance Fluid RBC Fld Tot Nucleated Cell Fluid Polynuclear WBCs Fluid Mononuclear WBCs Fluid Eosinophils Fluid Other Cells Body Fluid Clot Fluid Glucose Fluid Total Protein A. baumannii (PCR) [place] albicans (PCR) C. glabrata (PCR) C. krusei (PCR) C. parapsilosis (PCR) C. tropicalis (PCR) SARS-CoV-2 (PCR) Enterobacteriac sp PCR E. cloacae complex PCR Enterococcus sp PCR E. coli (PCR) H. influenzae (PCR) Klebsiella oxytoca PCR Klebsiella pneumoniae List. monocytogenes PCR N. meningitidis (PCR) Proteus species (PCR) Serratia marcescens PCR Staphylococcus sp PCR Staph aureus (PCR) mecA-Methicil Res Gene Streptococcus sp PCR Group A Strep (PCR) Strep agalactiae (PCR) Strep pneumoniae (PCR) P. aeruginosa (PCR) [place]/B-Vanco Res Genes KPC-Carbap Res Gene PCR 05/05/21 05/05/21 05/05/21 05:10 05:10 05:10 WBC RBC Hgb Hct MCV MCH MCHC RDW Plt Count Neut % (Auto) Lymph % (Auto) [place] % (Auto) Eos % (Auto) Baso % (Auto) Neut # (Auto) Lymph # (Auto) [place] # (Auto) Eos # (Auto) Baso # (Auto) ESR 67 H D-Dimer Sodium 130 L Potassium 4.4 Chloride 98 Carbon Dioxide 26 BUN 26 H Creatinine 1.16 Estimated GFR > 60.0 BUN/Creatinine Ratio 22.4 H Glucose 111 H Hemoglobin A1c Lactate Calcium 9.2 Magnesium Total Bilirubin 0.5 AST 16 L ALT 16 Alkaline Phosphatase 65 Total Creatine Kinase CK-MB (CK-2) CK-MB (CK-2) Rel Index Troponin I 0.013 C-Reactive Protein 31.5 H NT-Pro-B Natriuret Pep Total Protein 5.9 L Albumin 2.9 L Globulin 3.0 Albumin/Globulin Ratio 1.0 Procalcitonin Urine Color Urine Appearance Urine pH Ur Specific [place] Urine Protein Urine Glucose (UA) Urine Ketones Urine Occult Blood Urine Nitrate Urine Bilirubin Urine Urobilinogen Ur Leukocyte Esterase Urine RBC Urine WBC Ur Squamous Epith Cells Ur Transition Epith Cell Urine Bacteria Ur Culture Indicated? Fluid Color Fluid Appearance Fluid RBC Fld Tot Nucleated Cell Fluid Polynuclear WBCs Fluid Mononuclear WBCs Fluid Eosinophils Fluid Other Cells Body Fluid Clot Fluid Glucose Fluid Total Protein A. baumannii (PCR) [place] albicans (PCR) C. glabrata (PCR) C. krusei (PCR) C. parapsilosis (PCR) C. tropicalis (PCR) SARS-CoV-2 (PCR) Enterobacteriac sp PCR E. cloacae complex PCR Enterococcus sp PCR E. coli (PCR) H. influenzae (PCR) Klebsiella oxytoca PCR Klebsiella pneumoniae List. monocytogenes PCR N. meningitidis (PCR) Proteus species (PCR) Serratia marcescens PCR Staphylococcus sp PCR Staph aureus (PCR) mecA-Methicil Res Gene Streptococcus sp PCR Group A Strep (PCR) Strep agalactiae (PCR) Strep pneumoniae (PCR) P. aeruginosa (PCR) [place]/B-Vanco Res Genes KPC-Carbap Res Gene PCR 05/05/21 05/05/21 05:10 08:40 WBC RBC Hgb Hct MCV MCH MCHC RDW Plt Count Neut % (Auto) Lymph % (Auto) [place] % (Auto) Eos % (Auto) Baso % (Auto) Neut # (Auto) Lymph # (Auto) [place] # (Auto) Eos # (Auto) Baso # (Auto) ESR D-Dimer Sodium Potassium Chloride Carbon Dioxide BUN Creatinine Estimated GFR BUN/Creatinine Ratio Glucose Hemoglobin A1c Lactate 1.0 Calcium Magnesium Total Bilirubin AST ALT Alkaline Phosphatase Total Creatine Kinase CK-MB (CK-2) CK-MB (CK-2) Rel Index Troponin I C-Reactive Protein NT-Pro-B Natriuret Pep Total Protein Albumin Globulin Albumin/Globulin Ratio Procalcitonin 0.58 H Urine Color Urine Appearance Urine pH Ur Specific [place] Urine Protein Urine Glucose (UA) Urine Ketones Urine Occult Blood Urine Nitrate Urine Bilirubin Urine Urobilinogen Ur Leukocyte Esterase Urine RBC Urine WBC Ur Squamous Epith Cells Ur Transition Epith Cell Urine Bacteria Ur Culture Indicated? Fluid Color Fluid Appearance Fluid RBC Fld Tot Nucleated Cell Fluid Polynuclear WBCs Fluid Mononuclear WBCs Fluid Eosinophils Fluid Other Cells Body Fluid Clot Fluid Glucose Fluid Total Protein A. baumannii (PCR) [place] albicans (PCR) C. glabrata (PCR) C. krusei (PCR) C. parapsilosis (PCR) C. tropicalis (PCR) SARS-CoV-2 (PCR) Enterobacteriac sp PCR E. cloacae complex PCR Enterococcus sp PCR E. coli (PCR) H. influenzae (PCR) Klebsiella oxytoca PCR Klebsiella pneumoniae List. monocytogenes PCR N. meningitidis (PCR) Proteus species (PCR) Serratia marcescens PCR Staphylococcus sp PCR Staph aureus (PCR) mecA-Methicil Res Gene Streptococcus sp PCR Group A Strep (PCR) Strep agalactiae (PCR) Strep pneumoniae (PCR) P. aeruginosa (PCR) [place]/B-Vanco Res Genes KPC-Carbap Res Gene PCR Assessment & Plan Assessment and plan (1) Acute shoulder pain: Status: Acute Assessment & Plan narrative: 76M admitted for possible septic left sternoclavicular joint. Multiple CT's from past 24 hrs reviewed. Perhaps some edema around the joint but I do not appreciate an organized fluid collection that would be amenable to surgical or percutaneous drainage. Clinically improving with antibiotic therapy, non toxic. If joint is not continuing to improve with conservative therapy will need transfer to a facility with cardiothoracic capability in order to surgically drain this joint given proximity to major vascular structures. Will follow.
[2021-05-05] MEDS: CEFAZOLIN 1 GM VIAL 2 GM IV ×2 (13:13→21:25)
--- NOTE | 2021-05-05 13:18 | P.PN_ITS ---
Subjective Subjective Date Patient Seen: 05/05/21 Time Patient Seen: 08:00 Interval history: This morning he feels improved. His swelling in his arm and shoulder have decreased. He still has swelling at the sternoclavicular joint area on the left. He still has significant pain with motion located at the anterior shoulder. No fevers/chills currently. Exam Vital Signs (past 8 hours): - 05/05/21 07:15 05/05/21 08:25 05/05/21 08:33 Temperature 98.6 F Pulse Rate 84 84 Pulse Rate [Orthostatic Lying] 84 Pulse Rate [Orthostatic Sitting] 87 Pulse Rate [Orthostatic Standing] 88 Respiratory Rate 18 Blood Pressure 133/70 140/76 Blood Pressure [Orthostatic Lying] 140/76 Blood Pressure [Orthostatic Sitting] 132/76 Blood Pressure [Orthostatic Standing] 131/74 Pulse Oximetry 97 05/05/21 08:34 05/05/21 08:35 05/05/21 10:18 Temperature Pulse Rate 84 84 63 Pulse Rate [Orthostatic Lying] Pulse Rate [Orthostatic Sitting] Pulse Rate [Orthostatic Standing] Respiratory Rate 16 Blood Pressure 140/76 140/76 Blood Pressure [Orthostatic Lying] Blood Pressure [Orthostatic Sitting] Blood Pressure [Orthostatic Standing] Pulse Oximetry 98 Oxygen Delivery Method Room Air Oxygen Flow Rate 0 Narrative Exam Narrative: GEN: mild distress from pain HEENT: PERRL, moist mucous membranes NECK: Trachea midline. tenderness along clavicle to the sternoclavicular joint on the left, with effusion present CARDIOVASCULAR: regular rate rhythm without murmurs, gallops, or rubs. RESPIRATORY: Clear to auscultation bilaterally. No wheezes, rales, or rhonchi. GASTROINTESTINAL: Abdomen soft, non-tender, nondistended, normal bowel sounds EXTREMITIES:supraclavicular swelling noted, left shoulder range of motion d ecreased, left upper extremity edema present and per patient has improved since last night, moving his fingers and wrist but with decreased range of motion, no fluctuance or crepitus felt in arm, bilateral lower extremity edema mild BACK: minimally tender over lower c-spine and upper t-spine NEURO: AOx3. SKIN: No rash, wounds, or erythema are visualized Objective Labs Result Diagrams: 05/05/21 05:10 05/05/21 05:10 Labs: Laboratory Results - last 24 hr 05/04/21 05/04/21 05/04/21 13:00 13:00 13:00 WBC 9.6 RBC 4.13 L Hgb 12.7 L Hct 38.2 L MCV 92.6 MCH 30.8 MCHC 33.3 RDW 14.0 Plt Count 226 Neut % (Auto) 82.0 H Lymph % (Auto) 4.4 L [place] % (Auto) 12.5 Eos % (Auto) 1.0 L Baso % (Auto) 0.1 Neut # (Auto) 7800 H Lymph # (Auto) 400 L [place] # (Auto) 1200 H Eos # (Auto) 100 Baso # (Auto) 0 ESR D-Dimer Sodium 126 L Potassium 4.8 Chloride 94 L Carbon Dioxide 27 BUN 29 H Creatinine 1.03 Estimated GFR > 60.0 BUN/Creatinine Ratio 28.2 H Glucose 199 H Hemoglobin A1c Lactate 1.0 Calcium 9.6 Magnesium Total Bilirubin 0.6 AST 18 ALT 18 Alkaline Phosphatase 66 Total Creatine Kinase 61 CK-MB (CK-2) TNP CK-MB (CK-2) Rel Index TNP Troponin I < 0.012 C-Reactive Protein NT-Pro-B Natriuret Pep Total Protein 6.3 Albumin 3.3 L Globulin 3.0 Albumin/Globulin Ratio 1.1 Procalcitonin 0.43 Urine Color Urine Appearance Urine pH Ur Specific [place] Urine Protein Urine Glucose (UA) Urine Ketones Urine Occult Blood Urine Nitrate Urine Bilirubin Urine Urobilinogen Ur Leukocyte Esterase Urine RBC Urine WBC Ur Squamous Epith Cells Ur Transition Epith Cell Urine Bacteria Ur Culture Indicated? Fluid Color Fluid Appearance Fluid RBC Fld Tot Nucleated Cell Fluid Polynuclear WBCs Fluid Mononuclear WBCs Fluid Eosinophils Fluid Other Cells Body Fluid Clot Fluid Glucose Fluid Total Protein A. baumannii (PCR) [place] albicans (PCR) C. glabrata (PCR) C. krusei (PCR) C. parapsilosis (PCR) C. tropicalis (PCR) SARS-CoV-2 (PCR) Enterobacteriac sp PCR E. cloacae complex PCR Enterococcus sp PCR E. coli (PCR) H. influenzae (PCR) Klebsiella oxytoca PCR Klebsiella pneumoniae List. monocytogenes PCR N. meningitidis (PCR) Proteus species (PCR) Serratia marcescens PCR Staphylococcus sp PCR Staph aureus (PCR) mecA-Methicil Res Gene Streptococcus sp PCR Group A Strep (PCR) Strep agalactiae (PCR) Strep pneumoniae (PCR) P. aeruginosa (PCR) [place]/B-Vanco Res Genes KPC-Carbap Res Gene PCR 05/04/21 05/04/21 05/04/21 13:00 13:00 13:00 WBC RBC Hgb Hct MCV MCH MCHC RDW Plt Count Neut % (Auto) Lymph % (Auto) [place] % (Auto) Eos % (Auto) Baso % (Auto) Neut # (Auto) Lymph # (Auto) [place] # (Auto) Eos # (Auto) Baso # (Auto) ESR 45 H D-Dimer Sodium Potassium Chloride Carbon Dioxide BUN Creatinine Estimated GFR BUN/Creatinine Ratio Glucose Hemoglobin A1c 5.8 Lactate Calcium Magnesium Total Bilirubin AST ALT Alkaline Phosphatase Total Creatine Kinase CK-MB (CK-2) CK-MB (CK-2) Rel Index Troponin I C-Reactive Protein 29.8 H NT-Pro-B Natriuret Pep Total Protein Albumin Globulin Albumin/Globulin Ratio Procalcitonin Urine Color Urine Appearance Urine pH Ur Specific [place] Urine Protein Urine Glucose (UA) Urine Ketones Urine Occult Blood Urine Nitrate Urine Bilirubin Urine Urobilinogen Ur Leukocyte Esterase Urine RBC Urine WBC Ur Squamous Epith Cells Ur Transition Epith Cell Urine Bacteria Ur Culture Indicated? Fluid Color Fluid Appearance Fluid RBC Fld Tot Nucleated Cell Fluid Polynuclear WBCs Fluid Mononuclear WBCs Fluid Eosinophils Fluid Other Cells Body Fluid Clot Fluid Glucose Fluid Total Protein A. baumannii (PCR) [place] albicans (PCR) C. glabrata (PCR) C. krusei (PCR) C. parapsilosis (PCR) C. tropicalis (PCR) SARS-CoV-2 (PCR) Enterobacteriac sp PCR E. cloacae complex PCR Enterococcus sp PCR E. coli (PCR) H. influenzae (PCR) Klebsiella oxytoca PCR Klebsiella pneumoniae List. monocytogenes PCR N. meningitidis (PCR) Proteus species (PCR) Serratia marcescens PCR Staphylococcus sp PCR Staph aureus (PCR) mecA-Methicil Res Gene Streptococcus sp PCR Group A Strep (PCR) Strep agalactiae (PCR) Strep pneumoniae (PCR) P. aeruginosa (PCR) [place]/B-Vanco Res Genes KPC-Carbap Res Gene PCR 05/04/21 05/04/21 05/04/21 13:00 13:00 15:30 WBC RBC Hgb Hct MCV MCH MCHC RDW Plt Count Neut % (Auto) Lymph % (Auto) [place] % (Auto) Eos % (Auto) Baso % (Auto) Neut # (Auto) Lymph # (Auto) [place] # (Auto) Eos # (Auto) Baso # (Auto) ESR D-Dimer Sodium Potassium Chloride Carbon Dioxide BUN Creatinine Estimated GFR BUN/Creatinine Ratio Glucose Hemoglobin A1c Lactate Calcium Magnesium 2.1 Total Bilirubin AST ALT Alkaline Phosphatase Total Creatine Kinase CK-MB (CK-2) CK-MB (CK-2) Rel Index Troponin I C-Reactive Protein NT-Pro-B Natriuret Pep Total Protein Albumin Globulin Albumin/Globulin Ratio Procalcitonin Urine Color Yellow Urine Appearance Clear Urine pH 5.0 Ur Specific [place] <=1.005 Urine Protein Trace H Urine Glucose (UA) Negative Urine Ketones Negative Urine Occult Blood Negative Urine Nitrate Negative Urine Bilirubin Negative Urine Urobilinogen 0.2 Ur Leukocyte Esterase Negative Urine RBC None seen Urine WBC 0-1/hpf Ur Squamous Epith Cells 5-10 /hpf H Ur Transition Epith Cell 1-5/hpf Urine Bacteria None seen Ur Culture Indicated? Cult not indicated Fluid Color Fluid Appearance Fluid RBC Fld Tot Nucleated Cell Fluid Polynuclear WBCs Fluid Mononuclear WBCs Fluid Eosinophils Fluid Other Cells Body Fluid Clot Fluid Glucose Fluid Total Protein A. baumannii (PCR) Not detected [place] albicans (PCR) Not detected C. glabrata (PCR) Not detected C. krusei (PCR) Not detected C. parapsilosis (PCR) Not detected C. tropicalis (PCR) Not detected SARS-CoV-2 (PCR) Enterobacteriac sp PCR Not detected E. cloacae complex PCR Not detected Enterococcus sp PCR Not detected E. coli (PCR) Not detected H. influenzae (PCR) Not detected Klebsiella oxytoca PCR Not detected Klebsiella pneumoniae Not detected List. monocytogenes PCR Not detected N. meningitidis (PCR) Not detected Proteus species (PCR) Not detected Serratia marcescens PCR Not detected Staphylococcus sp PCR Detected H Staph aureus (PCR) Detected H mecA-Methicil Res Gene Not detected Streptococcus sp PCR Not detected Group A Strep (PCR) Not detected Strep agalactiae (PCR) Not detected Strep pneumoniae (PCR) Not detected P. aeruginosa (PCR) Not detected [place]/B-Vanco Res Genes Not Reportable KPC-Carbap Res Gene PCR Not Reportable 05/04/21 05/04/21 05/04/21 16:10 16:10 16:20 WBC RBC Hgb Hct MCV MCH MCHC RDW Plt Count Neut % (Auto) Lymph % (Auto) [place] % (Auto) Eos % (Auto) Baso % (Auto) Neut # (Auto) Lymph # (Auto) [place] # (Auto) Eos # (Auto) Baso # (Auto) ESR D-Dimer Sodium Potassium Chloride Carbon Dioxide BUN Creatinine Estimated GFR BUN/Creatinine Ratio Glucose Hemoglobin A1c Lactate Calcium Magnesium Total Bilirubin AST ALT Alkaline Phosphatase Total Creatine Kinase CK-MB (CK-2) CK-MB (CK-2) Rel Index Troponin I C-Reactive Protein NT-Pro-B Natriuret Pep Total Protein Albumin Globulin Albumin/Globulin Ratio Procalcitonin Urine Color Urine Appearance Urine pH Ur Specific [place] Urine Protein Urine Glucose (UA) Urine Ketones Urine Occult Blood Urine Nitrate Urine Bilirubin Urine Urobilinogen Ur Leukocyte Esterase Urine RBC Urine WBC Ur Squamous Epith Cells Ur Transition Epith Cell Urine Bacteria Ur Culture Indicated? Fluid Color [place] Fluid Appearance Slightly cloudy Fluid RBC Fld Tot Nucleated Cell 4092 Fluid Polynuclear WBCs 43 Fluid Mononuclear WBCs 57 Fluid Eosinophils 0 Fluid Other Cells 0 Body Fluid Clot No clots present Fluid Glucose 195 Fluid Total Protein 3.3 A. baumannii (PCR) [place] albicans (PCR) C. glabrata (PCR) C. krusei (PCR) C. parapsilosis (PCR) C. tropicalis (PCR) SARS-CoV-2 (PCR) Negative Enterobacteriac sp PCR E. cloacae complex PCR Enterococcus sp PCR E. coli (PCR) H. influenzae (PCR) Klebsiella oxytoca PCR Klebsiella pneumoniae List. monocytogenes PCR N. meningitidis (PCR) Proteus species (PCR) Serratia marcescens PCR Staphylococcus sp PCR Staph aureus (PCR) mecA-Methicil Res Gene Streptococcus sp PCR Group A Strep (PCR) Strep agalactiae (PCR) Strep pneumoniae (PCR) P. aeruginosa (PCR) [place]/B-Vanco Res Genes KPC-Carbap Res Gene PCR 05/04/21 05/05/21 05/05/21 22:10 01:40 01:40 WBC RBC Hgb Hct MCV MCH MCHC RDW Plt Count Neut % (Auto) Lymph % (Auto) [place] % (Auto) Eos % (Auto) Baso % (Auto) Neut # (Auto) Lymph # (Auto) [place] # (Auto) Eos # (Auto) Baso # (Auto) ESR D-Dimer 977 H Sodium 129 L Potassium 5.0 Chloride 98 Carbon Dioxide 25 BUN 25 H Creatinine 0.97 Estimated GFR > 60.0 BUN/Creatinine Ratio 25.8 H Glucose 140 H Hemoglobin A1c Lactate Calcium 9.2 Magnesium Total Bilirubin 0.5 AST 18 ALT 16 Alkaline Phosphatase 64 Total Creatine Kinase CK-MB (CK-2) CK-MB (CK-2) Rel Index Troponin I C-Reactive Protein 30.6 H NT-Pro-B Natriuret Pep 567 H Total Protein 6.0 L Albumin 3.0 L Globulin 3.0 Albumin/Globulin Ratio 1.0 Procalcitonin 0.51 H Urine Color Yellow Urine Appearance Clear Urine pH 5.0 Ur Specific [place] <=1.005 Urine Protein 1+ H Urine Glucose (UA) Negative Urine Ketones Trace H Urine Occult Blood Trace-lysed Urine Nitrate Negative Urine Bilirubin Negative Urine Urobilinogen 0.2 Ur Leukocyte Esterase Negative Urine RBC None seen Urine WBC None seen Ur Squamous Epith Cells Ur Transition Epith Cell Urine Bacteria None seen Ur Culture Indicated? Cult not indicated Fluid Color Fluid Appearance Fluid RBC Fld Tot Nucleated Cell Fluid Polynuclear WBCs Fluid Mononuclear WBCs Fluid Eosinophils Fluid Other Cells Body Fluid Clot Fluid Glucose Fluid Total Protein A. baumannii (PCR) [place] albicans (PCR) C. glabrata (PCR) C. krusei (PCR) C. parapsilosis (PCR) C. tropicalis (PCR) SARS-CoV-2 (PCR) Enterobacteriac sp PCR E. cloacae complex PCR Enterococcus sp PCR E. coli (PCR) H. influenzae (PCR) Klebsiella oxytoca PCR Klebsiella pneumoniae List. monocytogenes PCR N. meningitidis (PCR) Proteus species (PCR) Serratia marcescens PCR Staphylococcus sp PCR Staph aureus (PCR) mecA-Methicil Res Gene Streptococcus sp PCR Group A Strep (PCR) Strep agalactiae (PCR) Strep pneumoniae (PCR) P. aeruginosa (PCR) [place]/B-Vanco Res Genes KPC-Carbap Res Gene PCR 05/05/21 05/05/21 05/05/21 01:40 01:40 05:10 WBC 9.5 9.0 RBC 3.99 L 3.99 L Hgb 12.3 L 12.1 L Hct 37.0 L 36.8 L MCV 92.7 92.2 MCH 30.8 30.5 MCHC 33.3 33.0 RDW 14.2 14.2 Plt Count 231 215 Neut % (Auto) 81.4 H 78.5 H Lymph % (Auto) 5.8 L 6.9 L [place] % (Auto) 12.4 13.3 Eos % (Auto) 0.3 L 1.1 L Baso % (Auto) 0.1 0.2 Neut # (Auto) 7700 H 7100 H Lymph # (Auto) 500 L 600 L [place] # (Auto) 1200 H 1200 H Eos # (Auto) 0 100 Baso # (Auto) 0 0 ESR 77 H D D-Dimer Sodium Potassium Chloride Carbon Dioxide BUN Creatinine Estimated GFR BUN/Creatinine Ratio Glucose Hemoglobin A1c Lactate Calcium Magnesium Total Bilirubin AST ALT Alkaline Phosphatase Total Creatine Kinase CK-MB (CK-2) CK-MB (CK-2) Rel Index Troponin I 0.015 C-Reactive Protein NT-Pro-B Natriuret Pep Total Protein Albumin Globulin Albumin/Globulin Ratio Procalcitonin Urine Color Urine Appearance Urine pH Ur Specific [place] Urine Protein Urine Glucose (UA) Urine Ketones Urine Occult Blood Urine Nitrate Urine Bilirubin Urine Urobilinogen Ur Leukocyte Esterase Urine RBC Urine WBC Ur Squamous Epith Cells Ur Transition Epith Cell Urine Bacteria Ur Culture Indicated? Fluid Color Fluid Appearance Fluid RBC Fld Tot Nucleated Cell Fluid Polynuclear WBCs Fluid Mononuclear WBCs Fluid Eosinophils Fluid Other Cells Body Fluid Clot Fluid Glucose Fluid Total Protein A. baumannii (PCR) [place] albicans (PCR) C. glabrata (PCR) C. krusei (PCR) C. parapsilosis (PCR) C. tropicalis (PCR) SARS-CoV-2 (PCR) Enterobacteriac sp PCR E. cloacae complex PCR Enterococcus sp PCR E. coli (PCR) H. influenzae (PCR) Klebsiella oxytoca PCR Klebsiella pneumoniae List. monocytogenes PCR N. meningitidis (PCR) Proteus species (PCR) Serratia marcescens PCR Staphylococcus sp PCR Staph aureus (PCR) mecA-Methicil Res Gene Streptococcus sp PCR Group A Strep (PCR) Strep agalactiae (PCR) Strep pneumoniae (PCR) P. aeruginosa (PCR) [place]/B-Vanco Res Genes KPC-Carbap Res Gene PCR 05/05/21 05/05/21 05/05/21 05:10 05:10 05:10 WBC RBC Hgb Hct MCV MCH MCHC RDW Plt Count Neut % (Auto) Lymph % (Auto) [place] % (Auto) Eos % (Auto) Baso % (Auto) Neut # (Auto) Lymph # (Auto) [place] # (Auto) Eos # (Auto) Baso # (Auto) ESR 67 H D-Dimer Sodium 130 L Potassium 4.4 Chloride 98 Carbon Dioxide 26 BUN 26 H Creatinine 1.16 Estimated GFR > 60.0 BUN/Creatinine Ratio 22.4 H Glucose 111 H Hemoglobin A1c Lactate Calcium 9.2 Magnesium Total Bilirubin 0.5 AST 16 L ALT 16 Alkaline Phosphatase 65 Total Creatine Kinase CK-MB (CK-2) CK-MB (CK-2) Rel Index Troponin I 0.013 C-Reactive Protein 31.5 H NT-Pro-B Natriuret Pep Total Protein 5.9 L Albumin 2.9 L Globulin 3.0 Albumin/Globulin Ratio 1.0 Procalcitonin Urine Color Urine Appearance Urine pH Ur Specific [place] Urine Protein Urine Glucose (UA) Urine Ketones Urine Occult Blood Urine Nitrate Urine Bilirubin Urine Urobilinogen Ur Leukocyte Esterase Urine RBC Urine WBC Ur Squamous Epith Cells Ur Transition Epith Cell Urine Bacteria Ur Culture Indicated? Fluid Color Fluid Appearance Fluid RBC Fld Tot Nucleated Cell Fluid Polynuclear WBCs Fluid Mononuclear WBCs Fluid Eosinophils Fluid Other Cells Body Fluid Clot Fluid Glucose Fluid Total Protein A. baumannii (PCR) [place] albicans (PCR) C. glabrata (PCR) C. krusei (PCR) C. parapsilosis (PCR) C. tropicalis (PCR) SARS-CoV-2 (PCR) Enterobacteriac sp PCR E. cloacae complex PCR Enterococcus sp PCR E. coli (PCR) H. influenzae (PCR) Klebsiella oxytoca PCR Klebsiella pneumoniae List. monocytogenes PCR N. meningitidis (PCR) Proteus species (PCR) Serratia marcescens PCR Staphylococcus sp PCR Staph aureus (PCR) mecA-Methicil Res Gene Streptococcus sp PCR Group A Strep (PCR) Strep agalactiae (PCR) Strep pneumoniae (PCR) P. aeruginosa (PCR) [place]/B-Vanco Res Genes KPC-Carbap Res Gene PCR 05/05/21 05/05/21 05:10 08:40 WBC RBC Hgb Hct MCV MCH MCHC RDW Plt Count Neut % (Auto) Lymph % (Auto) [place] % (Auto) Eos % (Auto) Baso % (Auto) Neut # (Auto) Lymph # (Auto) [place] # (Auto) Eos # (Auto) Baso # (Auto) ESR D-Dimer Sodium Potassium Chloride Carbon Dioxide BUN Creatinine Estimated GFR BUN/Creatinine Ratio Glucose Hemoglobin A1c Lactate 1.0 Calcium Magnesium Total Bilirubin AST ALT Alkaline Phosphatase Total Creatine Kinase CK-MB (CK-2) CK-MB (CK-2) Rel Index Troponin I C-Reactive Protein NT-Pro-B Natriuret Pep Total Protein Albumin Globulin Albumin/Globulin Ratio Procalcitonin 0.58 H Urine Color Urine Appearance Urine pH Ur Specific [place] Urine Protein Urine Glucose (UA) Urine Ketones Urine Occult Blood Urine Nitrate Urine Bilirubin Urine Urobilinogen Ur Leukocyte Esterase Urine RBC Urine WBC Ur Squamous Epith Cells Ur Transition Epith Cell Urine Bacteria Ur Culture Indicated? Fluid Color Fluid Appearance Fluid RBC Fld Tot Nucleated Cell Fluid Polynuclear WBCs Fluid Mononuclear WBCs Fluid Eosinophils Fluid Other Cells Body Fluid Clot Fluid Glucose Fluid Total Protein A. baumannii (PCR) [place] albicans (PCR) C. glabrata (PCR) C. krusei (PCR) C. parapsilosis (PCR) C. tropicalis (PCR) SARS-CoV-2 (PCR) Enterobacteriac sp PCR E. cloacae complex PCR Enterococcus sp PCR E. coli (PCR) H. influenzae (PCR) Klebsiella oxytoca PCR Klebsiella pneumoniae List. monocytogenes PCR N. meningitidis (PCR) Proteus species (PCR) Serratia marcescens PCR Staphylococcus sp PCR Staph aureus (PCR) mecA-Methicil Res Gene Streptococcus sp PCR Group A Strep (PCR) Strep agalactiae (PCR) Strep pneumoniae (PCR) P. 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 History of tibial fracture Lower extremity edema Presence of combination internal cardiac defibrillator (ICD) and pacemaker Surgical History (Updated 05/04/21 @ 22:23 by KEL Marinelli) H/O cervical spine surgery History of bilateral knee replacement History of foot surgery Family History (Updated 05/04/21 @ 22:25 by KEL Marinelli) Mother Congestive heart failure Father Blood clots in brain Stroke Social History household members: spouse Smoking Status: Never smoker Assessment & Plan Assessment & Plan narrative: 76M PMH alcohol abuse, AICD, hyponatremia, recent c-spine surgery, previous endocarditis, previous R leg wound and infection who presents after a fall with fevers, left shoudler pain and swelling and staph bacteremia. 1. MSSA bacteremia, source unclear -has previous history of endocarditis, will try to get records to find out etiology -UA negative, CT chest with questionable infiltrate vs atelectasis but patient without respiratory symptoms so doubt pneumonia -had trauma to shoulder and now has pain and swelling at sternoclavicular joint on left, and left shoulder ----no abscess noted -ortho consulted and aspirated shoulder, cell count not consistent with infection, cultures pending -sternoclavicular joint has no discrete fluid to drain -CT neck and chest showed no abscess -ECHO ordered to evaluate for vegetation -surgery consulted for sternoclavicular swelling, and recommend antibiotic treatment for now, and if develops discrete drainable collection would likely need cardiothoracic surgery consult -antiemetics for nausea and vomiting, pain managment -blood cultures showed MSSA, positive on 05/02 and 05/04, will continue to surveil with daily cultures until negative -elevate arm and consult PT 2. L sternoclavicular joint effusion -unclear if this is source of infection -per ortho rec for now IV antibiotics and monitor closely clinically, may need higher level of care if develops drainable collection -antibiotics as above, will need to determine if patient has septic arthritis to determine length of treatment 3. L shoulder and arm swelling -ortho aspirated -cell count not consistent with infection, cultures pending -U/S for DVT negative, and CT angio showed no other vascular source of swelling 4. Elevated blood sugar without the diagnosis of diabetes, acute, present on admission -A1c: 5.8%-No diabetes, does not require blood sugar management 5. Essential hypertension, in the setting of ICD in place, acute on chronic, present on admission -B/P 164/75 (patient reports that his baseline systolic blood pressure 1 30s to 150s) -continue patient's lisinopril, continue the patient's also prescribed carvedilol, digoxin, and Lasix-which I believe is for heart failure with preserved ejection fraction (per pt 50-55%), and possible atrial fibrillation 6. Obesity as evidence by BMI 33.5 kg/m2, acute on chronic, present on admission -consideration will be given to dietary counseling Code status: Full code Surrogate decision maker: Joy CAMPOID PCR: Negative COVID vaccination: Pfizer December 2020 DVT/VTE prophylaxis: Lovenox 40 mg and SCDs Estimated length of stay: Likely to be greater than 2 midnights as source for bacteremia needs to be identified, IV antibiotics and fluid rehydration. Quality VTE Deep Vein Thrombosis/Pulmonary Embolism Present on Admission: No
[2021-05-05] MEDS: ALBUTEROL/IPRATROPIUM 3 ML AMPUL INH ×3 (13:40→19:13)
[2021-05-05] MEDS: OXYCODONE IR 5 MG TABLET PO ×3 (13:43→23:42)
--- NOTE | 2021-05-05 14:53 | PT-IP ANOTE ---
Received PT orders and reviewed chart. Attempted to see pt three times today. He was off the floor for CT, sleeping soundly, and undergoing echo therefore unavailable. Will follow up with pt morning of 05/06.
[2021-05-05] MEDS: BUDESONIDE 0.5 MG/2 ML NEB INH (19:13)
[2021-05-05] MEDS: SENNOSIDES 8.6 MG TABLET 17.2 MG PO (21:26)
--- NOTE | 2021-05-05 22:49 | DI.ECHO.S_ITS ---
[facility] +---------+ : : [address] : : : : [id number] : : : : Phone: [phone]+ Echocardiogram Report + + :Name: ALFREDITO LEE Study Date: 05/05/2021 Height: 74 in : :[facility] ReadingLocation: Weight: 261 lb : : Gender: Male BSA: 2.4 m2 : :: 1945 Age: 76 yrs BP: 140/76 mmHg: :Reason For Study: Endocarditis : :Ordering Physician: Ana : :Hospitalist Performed By: Kim Smith : :Referring: JIM CHRISTINE : + + Interpretation Summary The left ventricle is grossly normal size. The ejection fraction is estimated to be 50-55%. There are no obvious focal wall motion abnormalities noted but poor endocardial definition reduces the sensitivity for the detection of such. The right ventricle is not well visualized. Pulmonary artery pressures cannot be estimated because of the lack of a measurable TR jet velocity but the IVC suggests a CVP of around 8 mmHg. Cannot entirely rule out endocarditis given the limited visualization of the valves. There is no obvious valvular vegetation identified on this exam. Consider JOSE ENRIQUE if there is a high degree of clinical suspicion for endocarditis and clinically appropriate. The aortic root is moderately dilated. Procedure: A two-dimensional transthoracic echocardiogram with color flow and Doppler was performed. The study quality was technically limited. There is no prior echocardiogram noted for this patient. The patient was in normal sinus rhythm during the exam. Left Ventricle: The left ventricle is grossly normal size. The ejection fraction is estimated to be 50-55%. There are no obvious focal wall motion abnormalities noted but poor endocardial definition reduces the sensitivity for the detection of such. Diastolic function could not be accurately assessed due to contradictory data. Right Ventricle: The right ventricle is not well visualized. Atria: Both atria are moderately dilated. Mitral Valve: The mitral valve leaflets are mildly calcified. There is trace mitral regurgitation. Aortic Valve: The aortic valve is not well visualized. The aortic valve opens well. The aortic valve is mildly calcified. There is trace aortic regurgitation. Tricuspid Valve: The tricuspid valve is not well visualized. Pulmonary artery pressures cannot be estimated because of the lack of a measurable TR jet velocity but the IVC suggests a CVP of around 8 mmHg. Pulmonic Valve: The pulmonic valve is not well visualized. There is no obvious valvular vegetation identified on this exam. Consider JOSE ENRIQUE if there is a high degree of clinical suspicion for endocarditis and clinically appropriate. Great Vessels: The aortic root is moderately dilated. The ascending aorta could not be visualized. The IVC is dilated (diameter is greater than 2.1 cm) yet it collapses greater than 50% with a sniff. This suggests a right atrial pressure of 8 mm Hg. Pericardium/ Pleura There is no pericardial effusion. MMode/2D Measurements & Calculations LVOT diam: 2.9 cm LA A2 area: 31.8 cm2 Ao root diam: 4.7 cm LA A4 area: 31.4 cm2 LA length (vol): 7.1 cm LA vol: 119.1 ml LA vol index: 49.0 ml/m2 RA long axis: 7.5 cm RVD1 (basal): 4.8 cm RA area: 30.2 cm2 TAPSE: 4.6 cm RA vol: 102.7 ml RA : 42.2 ml/m2 IVC diam: 3.4 cm Doppler Measurements & Calculations Ao V2 max: 178.7 cm/sec LVOT Max Alexander: 93.7 cm/sec Ao V2 mean: 139.3 cm/sec LV V1 max P.5 mmHg Ao max P.8 mmHg LV V1 VTI: 16.2 cm Ao mean P.2 mmHg JOSEF(I,D): 3.3 cm2 Ao V2 VTI: 31.4 cm JOSEF(V,D): 3.4 cm2 sev ratio: 0.52 JOSEF indexed to BSA (cm^2/m^2): 1.4 MV E max alexander: 75.4 cm/sec PA V2 max: 75.3 cm/sec MV A max alexander: 71.2 cm/sec PA V2 mean: 60.4 cm/sec MV E/A: 1.1 PA mean P.5 mmHg Med Peak E' Alexander: 5.9 cm/sec PA pr(Accel): 44.3 mmHg E/E' med: 12.9 Lat Peak E' Alexander: 7.6 cm/sec E/E' lat: 10.0 E/e' average: 11.4 MV dec time: 0.25 sec SV(LVOT): 104.3 ml Reading Physician:05:02 PM
[2021-05-06] VITALS (21 sets, daily range): BP systolic 123–155; BP diastolic 66–97; PULSE 67–106; RESP 16–20; TEMP 36.6–37.7; O2SAT 94–99
[2021-05-06] MEDS: KETOROLAC 30 MG/ML VIAL IV (01:16)
[2021-05-06] MEDS: ACETAMINOPHEN 325 MG TABLET 975 MG PO (02:37)
[2021-05-06] MEDS: SODIUM CHLORIDE 0.9% 500 ML 60 ML IV (02:37)
[2021-05-06 06:03] LABS: Add Manual Diff / Slide Review NO; Basophils Absolute Auto 0 /uL (0-100); Basophils Percent Auto 0.4 % (0-2); Eosinophils Absolute Auto 200 /uL (0-450); Eosinophils Percent Auto 1.9 % (2-4); Hemoglobin 11.8 g/dL (13.5-17.5); Lymphocytes Absolute Auto 600 /uL (1100-4500); Lymphocytes Percent Auto 6.9 % (25-40); Mean Corpuscular HGB Conc 32.8 % (30-36); Mean Corpuscular Hemoglobin 30.2 PG (26-34); Mean Corpuscular Volume 92.2 fL (80-100); Monocytes Absolute Auto 1000 /uL (0-900); Monocytes Percent Auto 11.7 % (3-14); Neutrophils Absolute Auto 6700 /uL (1500-7000); Neutrophils Percent Auto 79.1 % (50-75); Platelet Count 254 X10^3/uL (150-400); Red Cell Distribution Width 14.3 % (11.6-14.8); White Blood Cell Count 8.4 X10^3/uL (4.5-11.0)
[2021-05-06 06:04] LABS: Alanine Aminotransferase 16 IU/L (<50); Albumin 2.7 g/dL (3.5-5.0); Albumin Globulin Ratio 0.9 (1.0-2.8); Alkaline Phosphatase 70 U/L (38-126); Aspartate Aminotransferase 19 IU/L (17-59); BUN Creatinine Ratio 26.4 (6-22); Bilirubin Total 0.3 mg/dL (0.2-1.3); Blood Urea Nitrogen 29 mg/dL (9-20); Calcium 9.2 mg/dL (8.4-10.2); Carbon Dioxide 25 mmol/L (22-32); Chloride 101 mmol/L (98-107); Estimated Glomerular Filt Rate > 60.0 mL/min (>60); Globulin 3.1 g/dL (1.7-4.1); Glucose 132 mg/dL (80-110); HEMOLYSIS < 15 (0-50); Potassium 4.8 mmol/L (3.4-5.1); Sodium 130 mmol/L (137-145); Total Protein 5.8 g/dL (6.3-8.2)
[2021-05-06 06:09] LABS: C-Reactive Protein Quant 23.3 mg/dL (<1.0)
[2021-05-06] MEDS: CEFAZOLIN 1 GM VIAL 2 GM IV ×3 (06:17→21:44)
[2021-05-06 06:18] LABS: Erythrocyte Sedimentation Rate 72 MM/HR (0-15)
[2021-05-06] MEDS: ATORVASTATIN 20 MG TABLET PO (08:57)
[2021-05-06] MEDS: OXYCODONE IR 5 MG TABLET PO ×4 (08:57→21:45)
[2021-05-06] MEDS: ALBUTEROL/IPRATROPIUM 3 ML AMPUL INH (08:58)
[2021-05-06] MEDS: ENOXAPARIN 40 MG/0.4 ML SYRINGE SUBCUT (08:58)
[2021-05-06] MEDS: DIGOXIN 0.125 MG TABLET PO (08:58)
[2021-05-06] MEDS: carvediloL 12.5 MG TABLET 25 MG PO ×2 (08:58→21:43)
[2021-05-06] MEDS: BUDESONIDE 0.5 MG/2 ML NEB INH ×2 (08:58→19:14)
[2021-05-06] MEDS: lisinopriL 20 MG TABLET PO (08:58)
--- NOTE | 2021-05-06 09:04 | P.PN_ITS ---
Subjective Subjective Date Patient Seen: 05/06/21 Time Patient Seen: 09:04 Interval history: Pain mild at rest. Pain more moderate to severe with movement of left upper extremity. Notes swelling still present in the left hand. No numbness and tingling. Exam Vital Signs (past 8 hours): - 05/06/21 01:18 05/06/21 02:31 05/06/21 02:37 Temperature 99.9 F H 99.9 F H Pulse Rate 89 Pulse Rate [Orthostatic Lying] 94 H Pulse Rate [Orthostatic Sitting] 105 H Pulse Rate [Orthostatic Standing] 106 H Respiratory Rate 17 Blood Pressure 123/68 Blood Pressure [Orthostatic Lying] 155/97 H Blood Pressure [Orthostatic Sitting] 154/86 H Blood Pressure [Orthostatic Standing] 144/80 H Pulse Oximetry 95 05/06/21 03:07 05/06/21 03:29 05/06/21 05:00 Temperature 99.0 F 99.0 F Pulse Rate 82 Pulse Rate [Orthostatic Lying] Pulse Rate [Orthostatic Sitting] Pulse Rate [Orthostatic Standing] Respiratory Rate 16 Blood Pressure 135/74 Blood Pressure [Orthostatic Lying] Blood Pressure [Orthostatic Sitting] Blood Pressure [Orthostatic Standing] Pulse Oximetry 94 94 Oxygen Delivery Method Room Air Oxygen Flow Rate 0 Narrative Exam Narrative: Mild swelling and fullness along the anterior aspect of the left shoulder and left sternal clavicular joint and moderate swelling in the supraclavicular region of the left shoulder there is focal tenderness over his sternoclavicular joint. Sensation grossly intact to light touch left upper extremity. Motor functions intact left upper extremity. Const General: cooperative and comfortable Orientation: oriented x3 Resp Effort & Inspection: normal respiratory effort and able to speak in complete sentences Objective Labs Result Diagrams: 05/06/21 05:40 05/06/21 05:40 Labs: Laboratory Results - last 24 hr 05/05/21 05/06/21 05/06/21 08:40 05:40 05:40 WBC 8.4 RBC 3.90 L Hgb 11.8 L Hct 36.0 L MCV 92.2 MCH 30.2 MCHC 32.8 RDW 14.3 Plt Count 254 Neut % (Auto) 79.1 H Lymph % (Auto) 6.9 L Republic % (Auto) 11.7 Eos % (Auto) 1.9 L Baso % (Auto) 0.4 Neut # (Auto) 6700 Lymph # (Auto) 600 L Republic # (Auto) 1000 H Eos # (Auto) 200 Baso # (Auto) 0 ESR Sodium 130 L Potassium 4.8 Chloride 101 Carbon Dioxide 25 BUN 29 H Creatinine 1.10 Estimated GFR > 60.0 BUN/Creatinine Ratio 26.4 H Glucose 132 H Lactate 1.0 Calcium 9.2 Total Bilirubin 0.3 AST 19 ALT 16 Alkaline Phosphatase 70 C-Reactive Protein Total Protein 5.8 L Albumin 2.7 L Globulin 3.1 Albumin/Globulin Ratio 0.9 L 05/06/21 05/06/21 05:40 05:40 WBC RBC Hgb Hct MCV MCH MCHC RDW Plt Count Neut % (Auto) Lymph % (Auto) Republic % (Auto) Eos % (Auto) Baso % (Auto) Neut # (Auto) Lymph # (Auto) Republic # (Auto) Eos # (Auto) Baso # (Auto) ESR 72 H Sodium Potassium Chloride Carbon Dioxide BUN Creatinine Estimated GFR BUN/Creatinine Ratio Glucose Lactate Calcium Total Bilirubin AST ALT Alkaline Phosphatase C-Reactive Protein 23.3 H Total Protein Albumin Globulin Albumin/Globulin Ratio Repeat blood cultures taken this morning are pending FAX TO: ORDERED: BODY FLUID Cx COMMENTS: Comment sterno/clavicular joint aspiration Procedure Result Verified Site Gram Stain Final 05/04/21-1 940 No Organism Seen No organisms seen White blood cells Few WBCs Aerobic Culture Preliminary 05/05/21- 1106 No growth. 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 History of tibial fracture Lower extremity edema Presence of combination internal cardiac defibrillator (ICD) and pacemaker Surgical History H/O cervical spine surgery History of bilateral knee replacement History of foot surgery Family History Mother Congestive heart failure Father Blood clots in brain Stroke Social History household members: spouse Smoking Status: Never smoker Assessment & Plan Assessment & Plan narrative: Gentle range of motion with physical therapy left upper extremity Continue IV antibiotics Echo has been completed but no report available Internal Medicine and General surgery following Waiting results of repeat blood cultures Time Spent With Patient Time with patient: less than 15 minutes Quality VTE Deep Vein Thrombosis/Pulmonary Embolism Present on Admission: No
[2021-05-06] MEDS: DOCUSATE 100 MG CAPSULE PO (09:24)
--- NOTE | 2021-05-06 09:43 | PT.IIE ---
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 Pt is an effective verbal communicator Mobility and Gait Pt is generally active, walking at least one mile daily with his dogs. He also enjoys cycling with his e-bike up to 15 miles daily. Gait is independent at baseline. History of B TKA with satisfactory outcomes. Activities of Daily Living and IADL's Independent with all ADL and IADL needs. Pt regularly drives his RV. Prior Functional Level (Other details) Remote history of B rotator cuff repair. Recent neuroforaminotomy at C6-C7. Pt reports falling while attempting to jump out of bed on a boat. His left elbow hit a hard surface. Social History Household Members spouse Living Arrangements RV Number of Stairs To Enter/Railing? 3 LILY RV with grab bar on left side but pt can hold door frame on right as needed. 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 He has a home in [place] but is currently listing it on [employer] while traveling with his in their RV. M2 PT-IP Current Condition Start: 05/05/21 08:45 Freq: NEEDED Status: Active Protocol: Document 05/06/21 09:43 AW (Rec: 05/06/21 10:22 AW [id number]) Physical Therapy Current Condition Current Condition Evaluation Date 05/06/21 Treatment Diagnosis staph bacteremia, possible septic S-C joint; LUE swelling and pain Onset Date 04/29/21 Precautions Brace Pt has soft sling to use LUE for comfort. M3 PT-IP Subjective Start: 05/05/21 08:45 Freq: NEEDED Status: Active Protocol: Document 05/06/21 09:43 AW (Rec: 05/06/21 10:22 AW [id number]) Subjective Physical Therapy Visit Type Type Initial Evaluation Visit Start Time 09:14 Visit Stop Time 09:43 Total Visit Minutes 29 Number of SHELL FISHERMAN Visits 0 Physical Therapy Visit Comments Patient Comments Pt is willing to participate with PT Patient Goals Reduce pain and improve LUE function Therapy Pain Assessment Pain When Pain Assessed During Mobility Pain Present Pain Present Pain Reported Location left shoulder Intensity 3 Scale Used Numeric (0 - 10) Pain Management Techniques Apply Cold,Modification of Treatment,Timing of Activity with Medications M4 PT-IP Mobility and Gait Start: 05/05/21 08:45 Freq: NEEDED Status: Active Protocol: Document 05/06/21 09:43 AW (Rec: 05/06/21 12:18 AW [id number]) PT-Bed Mobility Assessment Supine to Sit Supine to Sit Minimal Assistance,1 Person Assistance Sit to Supine Sit to Supine Minimal Assistance,1 Person Assistance Scooting Scooting to Edge of Bed Standby Assistance PT-Transfer Assessment Sit to and From Stand Sit to and from Stand Standby Assistance,Contact Guard Assistance,1 Person Assistance,Use of Upper Extremities Equipment Transfer Assistive Device None,Gait Belt Orthotic/Prosthetic Devices or Brace: No Transfers Transfer Destination Bed,Chair Transfer Technique Stand Step Pivot Transfer Ability Level of Assist Standby Assistance,Use of Upper Extremities Comments Mobility Comments Pt was sitting up EOB finishing a breathing treatment as PT arrived. Pt agreed to mobility assessment and required min assist for supine <> sit. He stood from the bed CGA and ambulated around the room SBA, complaining of increased LUE pain. He transferred to the chair SBA and then stood again . He walked around the room again and returned to the chair. Pt was left in the chair with call light and tray table in reach, ice pack applied to left supraclavular region. Gait Assessment Gait Gait Assistance Required: Standby Assistance Distance (Feet) 50 Assistive Devices Assistive Device None,Gait Belt Orthotic/Prosthetic Devices or Brace: No Gait Deviations General Gait Pattern Within Normal Limits Factors Limiting Gait Function Factors Limiting Gait Function Limited Range of Motion,Pain Stair Climbing Assessment Comments Stair Climbing Comments Not assessed. PT-Balance Assessment Sitting Balance and Reactions Static Sitting Balance Ability Normal Dynamic Sitting Balance Ability Good Standing Balance and Reactions Static Standing Balance Ability Normal Dynamic Standing Balance Ability Good M5 PT-IP Objective Assessments Start: 05/05/21 08:45 Freq: NEEDED Status: Active Protocol: Document 05/06/21 09:43 AW (Rec: 05/06/21 12:18 AW [id number]) Orientation Orientation/Cognition Level of Alertness Alert Orientation Name,Day of Week,Place, Situation Language Function Ability No Deficits Noted Safety Awareness Understands Safety Issues Memory Description No Deficits Noted Gross Range of Motion Upper Extremity ROM Assessment Left Impaired Impairments AROM minimal. PROM to ~30 degrees in flexion and abduction with pain. Lower Extremity ROM Assessment Within Functional Limits Strength Upper Extremity Strength Assessment Left Impaired Shoulder NT due to pain Elbow 3/5 Lower Extremity Strength Assessment Within Functional Limits Sensation Assessment Sensation Gross Sensation Left UE Impaired Sensation Description Pain Muscle Tone Muscle Tone WNL Yes Other Assessments Other Other Assessments Pt has swelling and bruising around S-C joint and supraclavicular fossa. Severe tone in left scalenes, upper traps, pectoralis. M6 PT-IP Treatment Start: 05/05/21 08:45 Freq: NEEDED Status: Active Protocol: Document 05/06/21 09:43 AW (Rec: 05/06/21 12:18 AW [id number]) Physical Therapy Treatment Exercises Exercises Elbow Flexion/Extension,Wrist ROM,Hand ROM Education Education Provided Safety Other Treatments Other Treatment Performed Educated pt on positioning for comfort of LUE and importance of ROM distal joints. M7 PT-IP Assessment and Plan Start: 05/05/21 08:45 Freq: NEEDED Status: Active Protocol: Document 05/06/21 09:43 AW (Rec: 05/06/21 12:18 AW [id number]) PT Summary Assessment and Plan Potential Rehabilitation Potential Good Status of Condition at Evaluation Stable Summary Impairments Pain,ROM,Strength,Sensation, Bed Mobility,Transfers,Gait Assessment Summary Nikolas is an active 76 yo man seen for PT evaluation with admitting diagnosis of bacteremia and possible septic left S-C joint following a fall during which he landed on his left elbow one week ago. He is independent in all regards at baseline. On evlauation, he presents with significant pain and guarding during all range of motion of the left shoulder and requires min assist for bed mobility, SBA to CGA for transfers and ambulation. Pt's will be able to assist him at discharge although they are currently in the midst of a long RV trip. At discharge, pt would benefit from outpatient PT to progress his LUE ROM and strength to improve his ability to drive and complete daily functional tasks. Goals Bed Mobility Goal Independent Transfer Goal Independent Gait Goal Independent Gait Distance 300 Other Goals - Pt will be independent with ROM program for LUE Days to Meet Goals 3 Frequency of Treatment Frequency Of Treatment Once a Day Treatment Plan Physical Therapy Treatment Plan Bed Mobility Training,Transfer Training,Gait Training, Therapeutic Exercise,Discharge Planning,Hot or Cold Pack Other Recommendations and Next Treatment - OT consult requested. Focus - ROM LUE. Recommendations To Nursing Amount of Assist Needed Standby Assistance Discharge Recommendations PT Discharge Recommendations Home with Assistance, Outpatient PT Transportation Needs at Discharge Private Vehicle
--- NOTE | 2021-05-06 12:09 | P.PN_ITS ---
Subjective Subjective Date Patient Seen: 05/06/21 Time Patient Seen: 08:00 Interval history: Today he thinks his pain is slightly improved. His left arm looks diffusely more swollen. He said he felt feverish overnight, but his Tmax was 99.9. Exam Vital Signs (past 8 hours): - 05/06/21 05:00 05/06/21 08:05 05/06/21 08:58 Temperature 97.8 F Pulse Rate 74 78 Pulse Rate [Orthostatic Lying] Pulse Rate [Orthostatic Sitting] Pulse Rate [Orthostatic Standing] Respiratory Rate 16 18 Blood Pressure 137/78 Blood Pressure [Orthostatic Lying] Blood Pressure [Orthostatic Sitting] Blood Pressure [Orthostatic Standing] Pulse Oximetry 94 95 99 05/06/21 09:17 05/06/21 10:08 05/06/21 10:35 Temperature Pulse Rate 80 Pulse Rate [Orthostatic Lying] 83 Pulse Rate [Orthostatic Sitting] 67 Pulse Rate [Orthostatic Standing] 77 Respiratory Rate 18 Blood Pressure Blood Pressure [Orthostatic Lying] 131/83 Blood Pressure [Orthostatic Sitting] 123/69 Blood Pressure [Orthostatic Standing] 136/66 Pulse Oximetry 99 95 Oxygen Delivery Method Room Air Oxygen Flow Rate 0 Narrative Exam Narrative: GEN: mild distress from pain HEENT: PERRL, moist mucous membranes NECK: Trachea midline. tenderness along clavicle to the sternoclavicular joint on the left, with effusion present CARDIOVASCULAR: regular rate rhythm without murmurs, gallops, or rubs. RESPIRATORY: Clear to auscultation bilaterally. No wheezes, rales, or rhonchi. GASTROINTESTINAL: Abdomen soft, non-tender, nondistended, normal bowel sounds EXTREMITIES:supraclavicular swelling noted, left shoulder range of motion decreased, left upper extremity edema present and appears mildly worsened diffusely, moving his fingers and wrist but with decreased range of motion, no fluctuance or crepitus felt in arm, bilateral lower extremity edema mild with no erythema noted and superficial lacerations on his toes BACK: minimally tender over lower c-spine and upper t-spine NEURO: AOx3. SKIN: No rash, wounds, or erythema are visualized Objective Labs Result Diagrams: 05/06/21 05:40 05/06/21 05:40 Labs: Laboratory Results - last 24 hr 05/06/21 05/06/21 05/06/21 05:40 05:40 05:40 WBC 8.4 RBC 3.90 L Hgb 11.8 L Hct 36.0 L MCV 92.2 MCH 30.2 MCHC 32.8 RDW 14.3 Plt Count 254 Neut % (Auto) 79.1 H Lymph % (Auto) 6.9 L Rush % (Auto) 11.7 Eos % (Auto) 1.9 L Baso % (Auto) 0.4 Neut # (Auto) 6700 Lymph # (Auto) 600 L Rush # (Auto) 1000 H Eos # (Auto) 200 Baso # (Auto) 0 ESR 72 H Sodium 130 L Potassium 4.8 Chloride 101 Carbon Dioxide 25 BUN 29 H Creatinine 1.10 Estimated GFR > 60.0 BUN/Creatinine Ratio 26.4 H Glucose 132 H Calcium 9.2 Total Bilirubin 0.3 AST 19 ALT 16 Alkaline Phosphatase 70 C-Reactive Protein Total Protein 5.8 L Albumin 2.7 L Globulin 3.1 Albumin/Globulin Ratio 0.9 L 05/06/21 05:40 WBC RBC Hgb Hct MCV MCH MCHC RDW Plt Count Neut % (Auto) Lymph % (Auto) Rush % (Auto) Eos % (Auto) Baso % (Auto) Neut # (Auto) Lymph # (Auto) Rush # (Auto) Eos # (Auto) Baso # (Auto) ESR Sodium Potassium Chloride Carbon Dioxide BUN Creatinine Estimated GFR BUN/Creatinine Ratio Glucose Calcium Total Bilirubin AST ALT Alkaline Phosphatase C-Reactive Protein 23.3 H Total Protein Albumin Globulin Albumin/Globulin Ratio [facility] Medical History Benign essential HTN Cardiac disease COPD (chronic obstructive pulmonary disease) CPAP (continuous positive airway pressure) dependence History of alcohol abuse 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 History of tibial fracture Lower extremity edema Presence of combination internal cardiac defibrillator (ICD) and pacemaker Surgical History H/O cervical spine surgery History of bilateral knee replacement History of foot surgery Family History Mother Congestive heart failure Father Blood clots in brain Stroke Social History household members: spouse Smoking Status: Never smoker Assessment & Plan Assessment & Plan narrative: 76M PMH alcohol abuse, AICD, hyponatremia, recent c-spine surgery, previous endocarditis, previous R leg wound and infection who presents after a fall with fevers, left shoudler pain and swelling and staph bacteremia. 1. MSSA bacteremia, source unclear -has previous history of endocarditis vs viral cardiomyopathy, will try to get records to find out etiology -UA negative, CT chest with questionable infiltrate vs atelectasis but patient without respiratory symptoms so doubt pneumonia -had trauma to shoulder and now has pain and swelling at sternoclavicular joint on left, and left shoulder ----no abscess noted -ortho consulted and aspirated shoulder, cell count not consistent with infection, cultures pending -sternoclavicular joint has no discrete fluid to drain -CT neck and chest showed no abscess -TTE ordered to evaluate for vegetation and none noted -surgery consulted for sternoclavicular swelling, and recommend antibiotic treatment for now, and if develops discrete drainable collection would likely need cardiothoracic surgery consult -antiemetics for nausea and vomiting, pain managment -blood cultures showed MSSA, positive on 05/02 and 05/04, will continue to surveil with daily cultures until negative -will need to determine an antibiotic duration, may need a JOSE ENRIQUE to rule out vegetation -elevate arm and consult PT 2. L sternoclavicular joint effusion -unclear if this is source of infection -per ortho rec for now IV antibiotics and monitor closely clinically, may need higher level of care if develops drainable collection -antibiotics as above, will need to determine if patient has septic arthritis to determine length of treatment 3. L shoulder and arm swelling -ortho aspirated -cell count not consistent with infection, cultures pending -U/S for DVT negative, and CT angio showed no other vascular source of swelling 4. Elevated blood sugar without the diagnosis of diabetes, acute, present on admission -A1c: 5.8%-No diabetes, does not require blood sugar management 5. Essential hypertension, in the setting of ICD in place, acute on chronic, present on admission -B/P 164/75 (patient reports that his baseline systolic blood pressure 1 30s to 150s) -continue patient's lisinopril, continue the patient's also prescribed carvedilol, digoxin, and Lasix-which I believe is for heart failure with preserved ejection fraction (per pt 50-55%), and possible atrial fibrillation 6. Obesity as evidence by BMI 33.5 kg/m2, acute on chronic, present on admission -consideration will be given to dietary counseling Code status: Full code Surrogate decision maker: Joy HUFF PCR: Negative COVID vaccination: Pfizer December 2020 DVT/VTE prophylaxis: Lovenox 40 mg and SCDs Estimated length of stay: Likely to be greater than 2 midnights as source for bacteremia needs to be identified, IV antibiotics and fluid rehydration. Quality VTE Deep Vein Thrombosis/Pulmonary Embolism Present on Admission: No
--- NOTE | 2021-05-06 15:08 | CM.DPC ---
DCP Cont: Per MD, pt still not stable for d/c yet and possible need for Ortho to determine if surgical intervention needed on pt's shoulder and high likelihood that pt may need IV-Abx at discharge. Per PT, pt ambulating well but no range of motion in his arm/shoulder. SW met bedside with pt and spouse and explained role and they discussed that their current plans had been to remain on family property off [address] outside of [facility] in their for the remainder of the month and then go up to [facility] for family member's wedding and then return to their home in [facility]. They have an adult Dtr in the area on a boat off [facility] and they have a house on [address] and an adult son flying in later this week for a planned visit. SW discussed potential for IV-Abx at d/c and options would depend on which IV-Abx, dosing and frequency and pt's insurance to determine if he would qualify for home infusion or outpt infusion clinic or SNF. Pt agreeable with discussing further and d/c plan and needs clarified closer to discharge. Pt active and independent at baseline and spouse and family very supportive. Plan: SW to follow closely towards determining if IV-Abx vs orals needed at d/c and discharge needs. LISSA Daugherty
--- NOTE | 2021-05-06 16:24 | P.PN_ITS ---
Subjective Subjective Interval history: He notes he is doing a little better today. He was able to get up with physical therapy knee actually took a shower. He spent some time sitting in the chair. He has continued substantial left shoulder pain no new complaints. The pain is a little worse in his clavicular area verses in his humeral area. Exam Vital Signs (past 8 hours): - 05/06/21 08:58 05/06/21 09:17 05/06/21 10:08 Temperature Pulse Rate 78 80 Pulse Rate [Orthostatic Lying] Pulse Rate [Orthostatic Sitting] Pulse Rate [Orthostatic Standing] Respiratory Rate 18 18 Blood Pressure Blood Pressure [Orthostatic Lying] Blood Pressure [Orthostatic Sitting] Blood Pressure [Orthostatic Standing] Pulse Oximetry 99 99 95 05/06/21 10:35 05/06/21 12:50 05/06/21 14:21 Temperature 98.6 F Pulse Rate 73 Pulse Rate [Orthostatic Lying] 83 Pulse Rate [Orthostatic Sitting] 67 Pulse Rate [Orthostatic Standing] 77 Respiratory Rate 16 Blood Pressure 135/69 Blood Pressure [Orthostatic Lying] 131/83 Blood Pressure [Orthostatic Sitting] 123/69 Blood Pressure [Orthostatic Standing] 136/66 Pulse Oximetry 96 95 05/06/21 16:00 Temperature 98.6 F Pulse Rate 76 Pulse Rate [Orthostatic Lying] Pulse Rate [Orthostatic Sitting] Pulse Rate [Orthostatic Standing] Respiratory Rate 20 Blood Pressure 143/74 H Blood Pressure [Orthostatic Lying] Blood Pressure [Orthostatic Sitting] Blood Pressure [Orthostatic Standing] Pulse Oximetry 96 Oxygen Delivery Method Room Air Oxygen Flow Rate 0 Narrative Exam Narrative: He is resting comfortably in bed, he still has substantial pain over his sternoclavicular area, there is decreased erythema, he has moderate to severe pain with glenohumeral motion, there is residual edema in his left wrist hand and elbow, is neurologically intact distally has good capillary refill, arm is warm there is decreased swelling around the glenohumeral joint and his AC joint is really nontender, she has slight restricted range of motion in the cervical spine Objective Labs Result Diagrams: 05/06/21 05:40 05/06/21 05:40 Labs: Laboratory Results - last 24 hr 05/06/21 05/06/21 05/06/21 05:40 05:40 05:40 WBC 8.4 RBC 3.90 L Hgb 11.8 L Hct 36.0 L MCV 92.2 MCH 30.2 MCHC 32.8 RDW 14.3 Plt Count 254 Neut % (Auto) 79.1 H Lymph % (Auto) 6.9 L [place] % (Auto) 11.7 Eos % (Auto) 1.9 L Baso % (Auto) 0.4 Neut # (Auto) 6700 Lymph # (Auto) 600 L [place] # (Auto) 1000 H Eos # (Auto) 200 Baso # (Auto) 0 ESR 72 H Sodium 130 L Potassium 4.8 Chloride 101 Carbon Dioxide 25 BUN 29 H Creatinine 1.10 Estimated GFR > 60.0 BUN/Creatinine Ratio 26.4 H Glucose 132 H Calcium 9.2 Total Bilirubin 0.3 AST 19 ALT 16 Alkaline Phosphatase 70 C-Reactive Protein Total Protein 5.8 L Albumin 2.7 L Globulin 3.1 Albumin/Globulin Ratio 0.9 L 05/06/21 05:40 WBC RBC Hgb Hct MCV MCH MCHC RDW Plt Count Neut % (Auto) Lymph % (Auto) [place] % (Auto) Eos % (Auto) Baso % (Auto) Neut # (Auto) Lymph # (Auto) [place] # (Auto) Eos # (Auto) Baso # (Auto) ESR Sodium Potassium Chloride Carbon Dioxide BUN Creatinine Estimated GFR BUN/Creatinine Ratio Glucose Calcium Total Bilirubin AST ALT Alkaline Phosphatase C-Reactive Protein 23.3 H Total Protein Albumin Globulin Albumin/Globulin Ratio [facility] Medical History Benign essential HTN Cardiac disease COPD (chronic obstructive pulmonary disease) CPAP (continuous positive airway pressure) dependence History of alcohol abuse 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 He does have positive blood cultures for Staph multiple cultures. His glenohumeral joint improved in comparison to previously in terms of his exam he still has substantial pain with range of motion in his shoulder. He has persistent pain over his sternal clavicular area but there is no specific anterior swelling. I think it is reasonable to manage him conservatively Patsy with IV antibiotics. We discussed previously the there does not appear to be a focal area terms of his sternoclavicular area which would be amenable to drainage. Systemically he appears to be responding to the IV antibiotics. Quality VTE Deep Vein Thrombosis/Pulmonary Embolism Present on Admission: No
[2021-05-06] MEDS: SENNOSIDES 8.6 MG TABLET 17.2 MG PO (21:43)
[2021-05-06] MEDS: SODIUM CHLORIDE 0.9% FLUSH 10 ML IV (21:44)
[2021-05-07] VITALS (16 sets, daily range): BP systolic 141–157; BP diastolic 74–93; PULSE 72–90; RESP 16–17; TEMP 36.9–37.6; O2SAT 95–96
[2021-05-07] MEDS: OXYCODONE IR 5 MG TABLET PO ×5 (01:34→18:06)
[2021-05-07] MEDS: CEFAZOLIN 1 GM VIAL 2 GM IV ×3 (05:11→21:11)
[2021-05-07 06:25] LABS: Alanine Aminotransferase 18 IU/L (<50); Alkaline Phosphatase 79 U/L (38-126); Aspartate Aminotransferase 23 IU/L (17-59); BUN Creatinine Ratio 27.1 (6-22); Bilirubin Total 0.4 mg/dL (0.2-1.3); Blood Urea Nitrogen 23 mg/dL (9-20); Calcium 9.2 mg/dL (8.4-10.2); Carbon Dioxide 28 mmol/L (22-32); Chloride 99 mmol/L (98-107); Estimated Glomerular Filt Rate > 60.0 mL/min (>60); Globulin 3.1 g/dL (1.7-4.1); Glucose 126 mg/dL (80-110); HEMOLYSIS < 15 (0-50); Potassium 4.7 mmol/L (3.4-5.1); Sodium 131 mmol/L (137-145); Total Protein 6.1 g/dL (6.3-8.2)
[2021-05-07 06:26] LABS: Add Manual Diff / Slide Review NO; Basophils Absolute Auto 0 /uL (0-100); Basophils Percent Auto 0.5 % (0-2); Eosinophils Absolute Auto 300 /uL (0-450); Hematocrit 36.4 % (41-53); Hemoglobin 12.1 g/dL (13.5-17.5); Lymphocytes Absolute Auto 700 /uL (1100-4500); Lymphocytes Percent Auto 7.3 % (25-40); Mean Corpuscular HGB Conc 33.1 % (30-36); Mean Corpuscular Hemoglobin 30.5 PG (26-34); Monocytes Absolute Auto 1100 /uL (0-900); Monocytes Percent Auto 12.4 % (3-14); Neutrophils Absolute Auto 7000 /uL (1500-7000); Neutrophils Percent Auto 76.8 % (50-75); Platelet Count 281 X10^3/uL (150-400); Red Blood Cell Count 3.96 X10^6/uL (4.5-5.9); Red Cell Distribution Width 14.2 % (11.6-14.8); White Blood Cell Count 9.1 X10^3/uL (4.5-11.0)
[2021-05-07 06:39] LABS: Erythrocyte Sedimentation Rate 74 MM/HR (0-15)
[2021-05-07 06:50] LABS: C-Reactive Protein Quant 16.9 mg/dL (<1.0)
[2021-05-07] MEDS: DIGOXIN 0.125 MG TABLET PO (09:13)
[2021-05-07] MEDS: ENOXAPARIN 40 MG/0.4 ML SYRINGE SUBCUT (09:13)
[2021-05-07] MEDS: carvediloL 12.5 MG TABLET 25 MG PO ×2 (09:13→21:11)
[2021-05-07] MEDS: lisinopriL 20 MG TABLET PO (09:13)
[2021-05-07] MEDS: ATORVASTATIN 20 MG TABLET PO (09:13)
[2021-05-07] MEDS: SODIUM CHLORIDE 0.9% FLUSH 10 ML IV ×2 (09:16→21:24)
--- NOTE | 2021-05-07 09:38 | PM.PN.1 ---
Subjective Subjective Date Patient Seen: 05/07/21 Time Patient Seen: 09:00 Interval history: He continues to have significant pain and limited mobility in left upper extremity. He overall is only slightly improved. Exam Vital Signs (past 8 hours): Oxygen Delivery Method Room Air Oxygen Flow Rate 0 Narrative Exam Narrative: GEN: mild distress from pain HEENT: PERRL, moist mucous membranes NECK: Trachea midline. tenderness along clavicle to the sternoclavicular joint on the left, with effusion present CARDIOVASCULAR: regular rate rhythm without murmurs, gallops, or rubs. RESPIRATORY: Clear to auscultation bilaterally. No wheezes, rales, or rhonchi. GASTROINTESTINAL: Abdomen soft, non-tender, nondistended, normal bowel sounds EXTREMITIES:supraclavicular swelling noted, left shoulder range of motion decreased, left upper extremity edema present and appears mildly worsened diffusely, moving his fingers and wrist but with decreased range of motion, no fluctuance or crepitus felt in arm, bilateral lower extremity edema mild with no erythema noted and superficial lacerations on his toes BACK: minimally tender over lower c-spine and upper t-spine NEURO: AOx3. 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 History of tibial fracture Lower extremity edema Presence of combination internal cardiac defibrillator (ICD) and pacemaker Surgical History H/O cervical spine surgery History of bilateral knee replacement History of foot surgery Family History Mother Congestive heart failure Father Blood clots in brain Stroke Social History household members: spouse Smoking Status: Never smoker Assessment & Plan Assessment & Plan narrative: 76M PMH alcohol abuse, AICD, hyponatremia, recent c-spine surgery, previous endocarditis, previous R leg wound and infection who presents after a fall with fevers, left shoudler pain and swelling and staph bacteremia. 1. MSSA bacteremia, source unclear -has previous history of endocarditis vs viral cardiomyopathy, will try to get records to find out etiology -UA negative, CT chest with questionable infiltrate vs atelectasis but patient without respiratory symptoms so doubt pneumonia -had trauma to shoulder and now has pain and swelling at sternoclavicular joint on left, and left shoulder ----no abscess noted -ortho consulted and aspirated shoulder, cell count not consistent with infection, cultures pending -sternoclavicular joint has no discrete fluid to drain -CT neck and chest showed no abscess -TTE ordered to evaluate for vegetation and none noted -surgery consulted for sternoclavicular swelling, and recommend antibiotic treatment for now, and if develops discrete drainable collection would likely need cardiothoracic surgery consult -antiemetics for nausea and vomiting, pain managment -blood cultures showed MSSA, positive on 05/02 and 05/04, negative since -will need to determine an antibiotic duration, may need a JOSE ENRIQUE to rule out vegetation -elevate arm and consult PT 2. L sternoclavicular joint effusion -unclear if this is source of infection -per ortho rec for now IV antibiotics and monitor closely clinically, may need higher level of care if develops drainable collection -antibiotics as above, will need to determine if patient has septic arthritis to determine length of treatment 3. L shoulder and arm swelling -ortho aspirated -cell count not consistent with infection, cultures pending -U/S for DVT negative, and CT angio showed no other vascular source of swelling 4. Elevated blood sugar without the diagnosis of diabetes, acute, present on admission -A1c: 5.8%-No diabetes, does not require blood sugar management 5. Essential hypertension, in the setting of ICD in place, acute on chronic, present on admission -B/P 164/75 (patient reports that his baseline systolic blood pressure 1 30s to 150s) -continue patient's lisinopril, continue the patient's also prescribed carvedilol, digoxin, and Lasix-which I believe is for heart failure with preserved ejection fraction (per pt 50-55%), and possible atrial fibrillation 6. Obesity as evidence by BMI 33.5 kg/m2, acute on chronic, present on admission -consideration will be given to dietary counseling Time Spent With Patient Critical Care time: I spent a total of [] minutes of critical care time on this patient's care today; this time is exclusive of procedural time. Quality VTE Deep Vein Thrombosis/Pulmonary Embolism Present on Admission: No
--- NOTE | 2021-05-07 11:25 | OT.IP.EVAL ---
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 History of foot surgery History of tibial fracture Lower extremity edema Presence of combination internal cardiac defibrillator (ICD) and pacemaker Surgical History (Last Reviewed 05/06/21 @ 09:13 by Neptali Potts PA-C) H/O cervical spine surgery History of bilateral knee replacement History of foot surgery Occupational Therapy Inpatient Evaluation/Re-Eval M1 PT/OT-IP Prior Functional Status Start: 05/05/21 08:45 Freq: NEEDED Status: Active Protocol: Document 05/07/21 09:25 [facility] (Rec: 05/07/21 12:33 [facility] [id number]) Medical Review Prior Functional Status Medical History Reviewed Yes Communication WNL. Pt is an effective verbal communicator Mobility and Gait Pt is generally active, walking at least one mile daily with his dogs. He also enjoys cycling with his e-bike up to 15 miles daily. Gait is independent at baseline. History of B TKA with satisfactory outcomes. Activities of Daily Living and IADL's Independent with all ADL and IADL needs. Pt regularly drives his RV. Prior Functional Level (Other details) Remote history of B rotator cuff repair. Recent neuroforaminotomy at C6-C7. Pt reports falling while attempting [place] jump [place] of bed on a boat. His left elbow hit a hard surface. Social History Household Members spouse Living Arrangements RV Number of Stairs To Enter/Railing? 3 LILY RV with grab bar on left side but pt can hold door frame on right as needed. 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 He has a home in [place] but is currently listing it on [employer] while traveling with his in their RV. M2 OT-IP Current Condition Start: 05/07/21 12:08 Freq: Status: Active Protocol: Document 05/07/21 09:25 [facility] (Rec: 05/07/21 12:33 [facility] [id number]) Occupational Therapy Current Condition Current Condition Evaluation Date 05/07/21 Treatment Diagnosis MSSA bacteremia, left shoulder swelling Diagnosis Onset Date 05/04/21 Post Operative Precautions Other Precautions Sling on for comfort, especially when up on his feet . M3 OT- IP Subjective and Pain Start: 05/07/21 12:08 Freq: Status: Active Protocol: Document 05/07/21 09:25 [facility] (Rec: 05/07/21 12:33 [facility] [id number]) OT- Subjective Occupational Therapy Visit Type Type Initial Evaluation Visit Start Time 09:25 Visit Stop Time 11:25 Total Visit Minutes 53 Occupational Therapy Visit Comments Patient Comments Pt's present in the room durign OT eval. Able to clarify with Dr. Willson that the sling is for comfort and not other precautions are indicated for pt's left shoulder at this time. Patient/Caregiver Goals To go home. OT Pain Assessment Pain When Pain Assessed During Mobility Pain Present Pain Present Pain Reported M4 OT- IP ADL's Start: 05/07/21 12:08 Freq: Status: Active Protocol: Document 05/07/21 09:25 [facility] (Rec: 05/07/21 12:33 [facility] [id number]) OT [id number] Comments OT Self-Feeding Comments Pt needing assist for set-up. OT ADL-Grooming Comments OT Grooming Comments Pt needing assist for set-up as unable to use left hand to assist for needs. OT ADL-Dressing General Eval Lower Body Dressing Ability Maximum Assistance Comments OT Dressing Comments At this time pt will needing MAX A for LB dressing needs and his states to assist. Also issued manager clinical informatics, shoe horn , and long handled brush to help increase ease for Adl needs. OT ADL-Toileting Comments OT Toileting Comments Pt did not perform, however states has been able to wipe on his own. OT ADL-Bathing Comments OT Bathing Comments NOt performed. M5 OT- IP IADL's Start: 05/07/21 12:08 Freq: Status: Active Protocol: Document 05/07/21 09:25 [facility] (Rec: 05/07/21 12:33 [facility] [id number]) OT-Instrumental Activities of Daily Living Home Safety Awareness Awareness of Need for Assistance at Home Good Awareness Ability to Problem Solve Emergency Able to Problem Solve Situations Medication Management Medication Management No Deficits Identified Money Management Money Management No Deficits Identified Meal Preparation Meal Preparation Comments Due to pt's inability to use LUE pt will need assist. Pig Breeder Pig Breeder Comments Due to pt's inability to use LUE pt will need assist. M6 OT- IP Functional Cognition Start: 05/07/21 12:08 Freq: Status: Active Protocol: Document 05/07/21 09:25 [facility] (Rec: 05/07/21 12:33 [facility] [id number]) Cognitive Factors Limiting Selfcare Function Cognitive Ability Level of Alertness Alert Patient Orientation Name,Age,Birthday,Month,Date, Year,Day of Week,Place, Situation Attention Span Ability Capable of Focused Attention, Capable of Sustained Attention Ability to Follow Commands Able to Follow Multi-Step Commands Memory Description No Deficits Noted Safety Awareness No Deficits Noted Problem Solving Ability No deficits Noted Cognitive Comments Cognitive Assessment Comments Intact with no cognitive deficits. OT- Vision and Hearing OT- Hearing Assessment OT- Hearing Assessment WFL OT- Vision Assessment Visual Acuity Contact Lenses Vision Assessment Comments Pt just wears left contact, however not wearing them now. M7 OT- IP Mobility and Balance Start: 05/07/21 12:08 Freq: Status: Active Protocol: Document 05/07/21 09:25 [facility] (Rec: 05/07/21 12:33 [facility] [id number]) OT- Bed Mobility Assessment Sit to Supine Sit to Supine Assist Moderate Assistance,1 Person Assistance,Bedrails OT-Transfer Assessment Sit to and From Stand Sit to and from Stand Contact Guard Assistance,1 Person Assistance Transfers Transfer Ability Contact Guard Assistance,1 Person Assistance Technique Transfer Destination Bed,Chair Comments Mobility Comments CGA while walking to get back into bed. OT- Balance Assessment Sitting Balance and Reactions Static Sitting Balance Ability Normal Standing Balance and Reactions Static Standing Balance Ability Fair M8 OT- IP Objective Assessments Start: 05/07/21 12:08 Freq: Status: Active Protocol: Document 05/07/21 09:25 [facility] (Rec: 05/07/21 12:33 [facility] [id number]) OT Gross Range of Motion Upper Extremity Range of Motion Assessment Left Impaired ROM Impairments Pt notes guards his LUE and not able to no any PROM with left shoulder. Able to move pt from elbow to distal. Pt noted unable to get left elbow straight, therefore -30 degrees. OT Strength Upper Extremity Strength Assessment Left Impaired OT-Muscle Tone Assessment Muscle Tone WNL Yes OT Sensation Assessment Edema Edema Present Edema Comments LUE swollen through. Able to do gentle retrograde massage from shoulder to distal at fingers to help with swelling so pt able to use his LUE for needs. Able to go over positioning needs with pt to try not to keep his left arm on his stomach and best to keep it elevated on pillows to the side. Ice bags also given and placed on his left shoulder. M9 OT- IP Assessment and Plan Start: 05/07/21 12:08 Freq: Status: Active Protocol: Document 05/07/21 09:25 [facility] (Rec: 05/07/21 12:33 [facility] [id number]) OT Summary Assessment and Plan Potential Rehabilitation Potential Good Analytic Complexity at Evaluation Moderate Summary OT Impairments Pain,Range of Motion,Strength, Balance,Functional Mobility, Self-Feeding,Grooming,Dressing ,Toileting,Bathing,Toilet Transfers,Shower Transfers, Activity Tolerance Progress Towards Goals Slow Progress due to Pain,Slow Progress due to Medical Issues Assessment Summary Pt MOD complexity and now not able to functional use his LUE for needs due to swelling and pain. Pt has a supportive that will assist with his needs. Pending medical needs, pt to go home with assist and would benefit from home versus possible swing bed/SNF. Goals Grooming Goal Independent Dressing Goal Independent Toileting Goal Independent Bathing Goal Independent Toilet Transfer Goal Independent Shower Transfer Goal Independent Patient/Caregiver Education Goal Caregiver Independent Assisting Patient Days to Meet Goals 20 Frequency of Treatment Frequency Of Treatment Once a Day Treatment Plan OT Treatment Plan ADL Training,Functional Mobility,Patient/Family Education,Discharge Planning Other Treatment Recommendations and Next Standing for grooming needs. Treatment Focus Discharge Recommendations OT Discharge Recommendations Home vs SNF Home Equipment Needs shower chair? Transportation Needs at Discharge Private Vehicle
[2021-05-07] MEDS: BUDESONIDE 0.5 MG/2 ML NEB INH ×2 (11:50→19:50)
[2021-05-07] MEDS: ALBUTEROL/IPRATROPIUM 3 ML AMPUL INH (11:51)
--- NOTE | 2021-05-07 11:52 | PT.IPTN ---
Current Diagnoses Pain in unspecified shoulder (05/04/21) Physical Therapy Treatment Note M2 PT-IP Current Condition Start: 05/05/21 08:45 Freq: NEEDED Status: Active Protocol: Document 05/06/21 09:43 AW (Rec: 05/06/21 10:22 AW [id number]) Physical Therapy Current Condition Current Condition Evaluation Date 05/06/21 Treatment Diagnosis staph bacteremia, possible septic S-C joint; LUE swelling and pain Onset Date 04/29/21 Precautions Brace Pt has soft sling to use LUE for comfort. M3 PT-IP Subjective Start: 05/05/21 08:45 Freq: NEEDED Status: Active Protocol: Document 05/07/21 11:52 AW (Rec: 05/07/21 12:06 AW [id number]) Subjective Physical Therapy Visit Type Type Treatment Note Visit Start Time 11:27 Visit Stop Time 11:52 Total Visit Minutes 25 Notes Pt's spouse was present throughout Number of SALVAGE CUTTER Visits 0 Physical Therapy Visit Comments Patient Comments Pt is willing to participate with PT Therapy Pain Assessment Pain When Pain Assessed At Rest Pain Present Pain Present Pain Reported M4 PT-IP Mobility and Gait Start: 05/05/21 08:45 Freq: NEEDED Status: Active Protocol: Document 05/07/21 11:52 AW (Rec: 05/07/21 12:06 AW [id number]) PT-Bed Mobility Assessment Supine to Sit Supine to Sit Minimal Assistance,1 Person Assistance Scooting Scooting to Edge of Bed Contact Guard Assistance PT-Transfer Assessment Sit to and From Stand Sit to and from Stand Contact Guard Assistance,1 Person Assistance,Use of Upper Extremities Equipment Transfer Assistive Device None,Gait Belt Transfers Transfer Destination Chair,Toilet Transfer Ability Level of Assist Standby Assistance,Use of Upper Extremities Comments Mobility Comments Pt was lying in bed as PT arrived. After performing retrograde manual therapy for edema management and AAROM, pt completed supine to sit min A x 1 with PLACEMENT ASSISTANT from the front. He stood CGA and PT assisted pt to don the sling (for comfort only per ortho). He ambulated to the toilet and transferred to and from SBA, good eccentric control of descent. He then ambulated in the halls with sling donned 250 feet SBA. On return to the room, pt sat on the chair where he agreed to remain. Left pt with call light and tray table in reach. His spouse remained in the room. Gait Assessment Gait Gait Assistance Required: Standby Assistance Distance (Feet) 250 Assistive Devices Assistive Device None,Gait Belt Orthotic/Prosthetic Devices or Brace: No Gait Deviations General Gait Pattern Wide Based Gait Factors Limiting Gait Function Factors Limiting Gait Function Limited Range of Motion,Pain Stair Climbing Assessment Evaluation Level of Assist On Stairs Standby Assistance Technique/Endurance Stair Climbing Direction Ascend and Descend Stair Climbing Technique Step Over Step Number of Steps Climbed 3 Stair Climbing Set # Repetitions (reps) 1 PT-Balance Assessment Sitting Balance and Reactions Static Sitting Balance Ability Normal Dynamic Sitting Balance Ability Good Standing Balance and Reactions Static Standing Balance Ability Normal Dynamic Standing Balance Ability Good Device Used no AD M5 PT-IP Objective Assessments Start: 05/05/21 08:45 Freq: NEEDED Status: Active Protocol: Document 05/06/21 09:43 AW (Rec: 05/06/21 12:18 AW [id number]) Orientation Orientation/Cognition Level of Alertness Alert Orientation Name,Day of Week,Place, Situation Language Function Ability No Deficits Noted Safety Awareness Understands Safety Issues Memory Description No Deficits Noted Gross Range of Motion Upper Extremity ROM Assessment Left Impaired Impairments AROM minimal. PROM to ~30 degrees in flexion and abduction with pain. Lower Extremity ROM Assessment Within Functional Limits Strength Upper Extremity Strength Assessment Left Impaired Shoulder NT due to pain Elbow 3/5 Lower Extremity Strength Assessment Within Functional Limits Sensation Assessment Sensation Gross Sensation Left UE Impaired Sensation Description Pain Muscle Tone Muscle Tone WNL Yes Other Assessments Other Other Assessments Pt has swelling and bruising around S-C joint and supraclavicular fossa. Severe tone in left scalenes, upper traps, pectoralis. M6 PT-IP Treatment Start: 05/05/21 08:45 Freq: NEEDED Status: Active Protocol: Document 05/07/21 11:52 AW (Rec: 05/07/21 12:06 AW [id number]) Physical Therapy Treatment Other Treatments Other Treatment Performed Manual lymph drainage LUE followed by AROM and AAROM elbow, wrist, and hand for edema management. M7 PT-IP Assessment and Plan Start: 05/05/21 08:45 Freq: NEEDED Status: Active Protocol: Document 05/07/21 11:52 AW (Rec: 05/07/21 12:06 AW [id number]) PT Summary Assessment and Plan Summary Impairments Pain,ROM,Strength,Sensation, Bed Mobility,Transfers,Gait Progress Towards Goals Progressing Toward Goals Assessment Summary Mauricio LUE remains swollen and guarded. He tolerated MLD and A/AROM for edema management and then was able to mobilize in the halls SBA. Will continue to follow. Pt states he hopes to discharge to his which is parked at his daughter's home off of [address]. Goals Bed Mobility Goal Independent Transfer Goal Independent Gait Goal Independent Gait Distance 300 Other Goals - Pt will be independent with ROM program for LUE Days to Meet Goals 3 Frequency of Treatment Frequency Of Treatment Once a Day Treatment Plan Physical Therapy Treatment Plan Bed Mobility Training,Transfer Training,Gait Training, Therapeutic Exercise,Discharge Planning,Hot or Cold Pack, Manual Therapy Other Recommendations and Next Treatment edema managment, A/AROM as Focus tolerated Recommendations To Nursing Amount of Assist Needed 1 Person Assist Discharge Recommendations PT Discharge Recommendations Home with Assistance, Outpatient PT Transportation Needs at Discharge Private Vehicle
--- NOTE | 2021-05-07 13:56 | CM.DPC ---
DCP: continued: case received, EMR reviewed and noted the updated insurance information. Printed the updated face sheet for the DCP team. Payer: Medicare and [employer] [place] Admission status: [facility] Ortho is consulting and is recommending conservative treatment at this time with IV antibiotics. Checked in with pt and updated him re the insurance information and Medicare options for IV antibiotics: Infusion Center if manageable with dosing option or snf. Pt said he would be talking with his . He said again that his time in [place] is limited, they want to go to a wedding and then back to [place]. DCP team will continue to follow as POC at d/c is clarified.
[2021-05-07] MEDS: SENNOSIDES 8.6 MG TABLET 17.2 MG PO (21:11)
[2021-05-08] VITALS (18 sets, daily range): BP systolic 130–199; BP diastolic 69–100; PULSE 64–81; RESP 15–18; TEMP 36.4–37.2; O2SAT 95–98
[2021-05-08] MEDS: CEFAZOLIN 1 GM VIAL 2 GM IV ×3 (05:23→21:51)
[2021-05-08] MEDS: BUDESONIDE 0.5 MG/2 ML NEB INH ×2 (08:33→19:37)
[2021-05-08] MEDS: OXYCODONE IR 5 MG TABLET PO ×2 (09:37→17:28)
[2021-05-08] MEDS: ATORVASTATIN 20 MG TABLET PO (09:37)
[2021-05-08] MEDS: carvediloL 12.5 MG TABLET 25 MG PO ×2 (09:37→20:29)
[2021-05-08] MEDS: lisinopriL 20 MG TABLET PO (09:37)
[2021-05-08] MEDS: DIGOXIN 0.125 MG TABLET PO (09:37)
[2021-05-08] MEDS: SODIUM CHLORIDE 0.9% FLUSH 10 ML IV ×3 (09:40→20:32)
[2021-05-08] MEDS: ENOXAPARIN 40 MG/0.4 ML SYRINGE SUBCUT (09:40)
--- NOTE | 2021-05-08 11:12 | CM.DPC ---
Addendum entered by Priscilla Ching R.N. 05/08/21 15:55: Amanda from [facility] should be able to take patient if needed. Have not yet heard from [facility] Addendum entered by Priscilla Ching R.N. 05/08/21 14:52: Spoke to Chanda [facility] to follow up with referral. She indicated, they most likely can accept patient, but are having some staffing issues. She indicated that she will call this mattress spring encaser back today with update. Went ahead and called Amanda at [facility], as [facility] is currently full. She mentioned, she might be able to take patient tomorrow, depends on how many admissions she has. Went ahead and faxed over the referral as plan B. Original Note: DCP Cont: Discussed patient during team rounds. Patient will need IV ABO for approximately 6 weeks, at this time, is Cefazolin q 8 hours, but hospitalist will be checking in with ID doctor. Met with outside of patient's room. She mentioned, skilled may be the best thing for him right now, [place] it's going [place] be hard to manage the medication. She is ok with sending referral over to [facility]. Chanda at [facility] will review patient. Let her know that patient most likely will be on a 6 week regime of IV antibiotics. She does have beds available. Let her know that PICC line is being placed today, and he will most likely be ready by tomorrow. P: DCP to continue to follow. Will follow up today with [facility] to see if she can accept. Priscilla Ching RN/Key Punch Teacher
--- NOTE | 2021-05-08 11:49 | PT-IP ANOTE ---
Pt in shower when COURT ASSISTANT arrived. Will try back in PM.
--- NOTE | 2021-05-08 13:18 | OT.IP.TRT ---
Current Diagnoses Pain in unspecified shoulder (05/04/21) Occupational Therapy Treatment Note M2 OT-IP Current Condition Start: 05/07/21 12:08 Freq: Status: Active Protocol: Document 05/07/21 09:25 [facility] (Rec: 05/07/21 12:33 [facility] [id number]) Occupational Therapy Current Condition Current Condition Evaluation Date 05/07/21 Treatment Diagnosis MSSA bacteremia, left shoulder swelling Diagnosis Onset Date 05/04/21 Post Operative Precautions Other Precautions Sling on for comfort, especailly when up on his feet . M3 OT- IP Subjective and Pain Start: 05/07/21 12:08 Freq: Status: Active Protocol: Document 05/08/21 13:18 [facility] (Rec: 05/08/21 13:30 [facility] [id number]) OT- Subjective Occupational Therapy Visit Type Type Treatment Note Visit Start Time 12:40 Visit Stop Time 13:18 Total Visit Minutes 38 Occupational Therapy Visit Comments Patient Comments Pt willing to do OT and pt's in the room. Patient/Caregiver Goals To go home. OT Pain Assessment Pain When Pain Assessed During Mobility Pain Present Pain Present Pain Reported Location left shoulder Intensity 3 Scale Used Numeric (0 - 10) M4 OT- IP ADL's Start: 05/07/21 12:08 Freq: Status: Active Protocol: Document 05/08/21 13:18 [facility] (Rec: 05/08/21 13:30 [facility] [id number]) OT [id number] Comments OT Self-Feeding Comments Encouraged pt to incorporate use of left hand for needs. OT ADL-Grooming Comments OT Grooming Comments Encouraged pt to incorporate use of left hand for needs. OT ADL-Oral Care Comments Oral Care Comments Encouraged pt to incorporate use of left hand for needs. OT ADL-Dressing Comments OT Dressing Comments Encouraged pt to incorporate use of left hand for needs. Educated pt on pendulum exercises to help try to increased his AROM as pt tends to guard during movement. Pt now able to actively externally rotate and abduct his left arm out now. OT ADL-Toileting General Evaluation Toileting Ability Independent Comments OT Toileting Comments Pt able to use the toilet independently on his own. OT ADL-Bathing Comments OT Bathing Comments Pt showered earlier. M5 OT- IP IADL's Start: 05/07/21 12:08 Freq: Status: Active Protocol: Document 05/07/21 09:25 [facility] (Rec: 05/07/21 12:33 [facility] [id number]) OT-Instrumental Activities of Daily Living Home Safety Awareness Awareness of Need for Assistance at Home Good Awareness Ability to Problem Solve Emergency Able to Problem Solve Situations Medication Management Medication Management No Deficits Identified Money Management Money Management No Deficits Identified Meal Preparation Meal Preparation Comments Due to pt's inability to use LUE pt will need assist. Sizing Sponger Sizing Sponger Comments Due to pt's inability to use LUE pt will need assist. M6 OT- IP Functional Cognition Start: 05/07/21 12:08 Freq: Status: Active Protocol: Document 05/08/21 13:18 [facility] (Rec: 05/08/21 13:30 [facility] [id number]) Cognitive Factors Limiting Selfcare Function Cognitive Comments Cognitive Assessment Comments Pt just needing encouragement to incorporate his LUE for ADl and functional mobility needs. M7 OT- IP Mobility and Balance Start: 05/07/21 12:08 Freq: Status: Active Protocol: Document 05/08/21 13:18 [facility] (Rec: 05/08/21 13:30 [facility] [id number]) OT-Transfer Assessment Sit to and From Stand Sit to and from Stand Standby Assistance Transfers Transfer Ability Standby Assistance Technique Transfer Destination Chair,Toilet Transfer Technique Stand Step Pivot Devices Transfer Assistive Devices None Comments Mobility Comments Educated pt to try to place his left hand on the armrest to assist to push up with as prior pt guarding his LUE on his stomach when coming to stand. Pt able to place and tolerate some weight to his LUE now when coming to stand. OT- Gait Assessment Comments Gait Ability Comments SBA in the room. OT- Balance Assessment Sitting Balance and Reactions Static Sitting Balance Ability Normal Dynamic Sitting Balance Ability Good Standing Balance and Reactions Static Standing Balance Ability Good M9 OT- IP Assessment and Plan Start: 05/07/21 12:08 Freq: Status: Active Protocol: Document 05/08/21 13:18 [facility] (Rec: 05/08/21 13:30 [facility] [id number]) OT Summary Assessment and Plan Potential Rehabilitation Potential Good Analytic Complexity at Evaluation Moderate Summary OT Impairments Pain,Range of Motion,Strength, Balance,Functional Mobility, Self-Feeding,Grooming,Dressing ,Toileting,Bathing,Toilet Transfers,Shower Transfers, Activity Tolerance Progress Towards Goals Progressing Toward Goals Assessment Summary Pt tolerating movement on his LUE better and able to actively move his LUE more at this time especially with external rotation and abduction. Pt still needing encouragement to use LUE for needs. Able to go over LUE exercises with pt to help improve his AROM for his LUE to help increased independence for ADl's with incorporation of LUE use. Pt pending medical status to go home versus skilled rehab. Goals Grooming Goal Independent Dressing Goal Independent Toileting Goal Independent Bathing Goal Independent Toilet Transfer Goal Independent Shower Transfer Goal Independent OT-Other Goals All goals having pt incorporate his LUE for needs without compensation of RUE to assist. Days to Meet Goals 19 Frequency of Treatment Frequency Of Treatment Once a Day Treatment Plan OT Treatment Plan ADL Training,Functional Mobility,Patient/Family Education,Discharge Planning Discharge Recommendations OT Discharge Recommendations Home vs SNF Home Equipment Needs shower chair? Transportation Needs at Discharge Private Vehicle
--- NOTE | 2021-05-08 14:02 | PT.IPTN ---
Current Diagnoses Pain in unspecified shoulder (05/04/21) Physical Therapy Treatment Note M2 PT-IP Current Condition Start: 05/05/21 08:45 Freq: NEEDED Status: Active Protocol: Document 05/06/21 09:43 AW (Rec: 05/06/21 10:22 AW [id number]) Physical Therapy Current Condition Current Condition Evaluation Date 05/06/21 Treatment Diagnosis staph bacteremia, possible septic S-C joint; LUE swelling and pain Onset Date 04/29/21 Precautions Brace Pt has soft sling to use LUE for comfort. M3 PT-IP Subjective Start: 05/05/21 08:45 Freq: NEEDED Status: Active Protocol: Document 05/08/21 13:22 SP (Rec: 05/08/21 15:59 SP [id number]) Subjective Physical Therapy Visit Type Type Treatment Note Visit Start Time 13:22 Visit Stop Time 14:02 Total Visit Minutes 40 Notes Pt's spouse assist with PROM- AAROM in standing at sink of RUE to assimulate pendulums in tolerated position. Number of CHILD SUPPORT INVESTIGATOR Visits 1 Physical Therapy Visit Comments Patient Comments Pt is willing to participate with PT Patient Goals Reduce pain and improve LUE function Therapy Pain Assessment Pain When Pain Assessed During Mobility Pain Present Pain Present Pain Reported Location left shoulder Intensity 2 Scale Used at rest, 4-5/10 RUE during mob . Pain Management Techniques Modification of Treatment,Re- positioning,Timing of Activity with Medications M4 PT-IP Mobility and Gait Start: 05/05/21 08:45 Freq: NEEDED Status: Active Protocol: Document 05/08/21 13:22 SP (Rec: 05/08/21 15:59 SP [id number]) PT-Bed Mobility Assessment Sit to Supine Sit to Supine Moderate Assistance,1 Person Assistance,Bedrails Scooting Scooting Up and Down in Bed Standby Assistance PT-Transfer Assessment Sit to and From Stand Sit to and from Stand Minimal Assistance,1 Person Assistance,Use of Upper Extremities Equipment Transfer Assistive Device None,Gait Belt Orthotic/Prosthetic Devices or Brace: Yes Transfers Transfer Destination Bed,Chair Transfer Technique ambulated w/ no AD Transfer Ability Level of Assist Contact Guard Assistance,1 Person Assistance,Use of Upper Extremities Comments Mobility Comments Pt was seated in chair when arrived, in room. CHILD SUPPORT INVESTIGATOR instructed review with pt and light retrograde massage starting anterior R shld then working down arm with long light strokes, good tolerance. Instructed hand, wrist, elbow flex/ext AA-PROM using RUE with report of increased pain level but tolerated. Scoot to EOChair SBA, Sit>stand Min A x1 with [facility] safety LUE on chair arm rest and encouraged if tolerated use of LUE, maybe 10% WB through LUE used. Ambulated 3 laps around room CGA, no AD, cued upright posture. Stand>sit at R EOB CGA for slow descent using RUE . CHILD SUPPORT INVESTIGATOR donned sling while giving reviewed instruction with and pt. While sitting at EOB, difficulty clasping over neck strap but able then donned gown for gait into hallway and pt reported L shld feel more painful in the sling, cued upright posture and discussed arm weight pulling on neck and elongating L arm, unable to elevate further for increase proximation support/ comfort due to increased pain in L shld. Pt requested removal of gown and sling and try dangling in standing. CHILD SUPPORT INVESTIGATOR removed gown, sling, SIt>stand Min A and gait over to sink CGA, contact sink for balance sBA and CHILD SUPPORT INVESTIGATOR initiated PROM pendulums in upright standing, unable to bend over due to L shld pain. Pt tends to be guarded L shld more AAROM very small motions maybe 2 deg FF, ABD by CHILD SUPPORT INVESTIGATOR then , no significant improvement in pain. Pt requested to lay down in bed, Sit>supine Mod A for BLE repositioning into bed then cues to center an scoot down in bed self using R UE on bed rail and BLE. CHILD SUPPORT INVESTIGATOR provided pillows under LUE and lateral R side of bed due to R lateral SB, improved CS alignment. Pt had call light and all needs in reach before left. Gait Assessment Gait Gait Assistance Required: Contact Guard Assist,1 Person Assist Distance (Feet) 90 Able to Maintain Weight Bearing Status Yes During Gait Assistive Devices Assistive Device None,Gait Belt Orthotic/Prosthetic Devices or Brace: No Gait Deviations General Gait Pattern Antalgic,Decreased Feet Clearance,Flexed Trunk,Wide Based Gait Factors Limiting Gait Function Factors Limiting Gait Function Decreased Activity Tolerance, Decreased Strength,Limited Range of Motion,Pain,Poor Balance Comments Gait Comments Receiprocal gait, flexed head and shld posture, little improvement with cues, decline sling donning due to felt to restricting when donned in sitting. Declined out of room gait due to increased L shld pain once donned gown with new contact precautions, did laps in room, CGA no AD. PT-Balance Assessment Sitting Balance and Reactions Static Sitting Balance Ability Normal Dynamic Sitting Balance Ability Good Standing Balance and Reactions Static Standing Balance Ability Good Dynamic Standing Balance Ability Fair Device Used no AD M5 PT-IP Objective Assessments Start: 05/05/21 08:45 Freq: NEEDED Status: Active Protocol: Document 05/06/21 09:43 AW (Rec: 05/06/21 12:18 AW [id number]) Orientation Orientation/Cognition Level of Alertness Alert Orientation Name,Day of Week,Place, Situation Language Function Ability No Deficits Noted Safety Awareness Understands Safety Issues Memory Description No Deficits Noted Gross Range of Motion Upper Extremity ROM Assessment Left Impaired Impairments AROM minimal. PROM to ~30 degrees in flexion and abduction with pain. Lower Extremity ROM Assessment Within Functional Limits Strength Upper Extremity Strength Assessment Left Impaired Shoulder NT due to pain Elbow 3/5 Lower Extremity Strength Assessment Within Functional Limits Sensation Assessment Sensation Gross Sensation Left UE Impaired Sensation Description Pain Muscle Tone Muscle Tone WNL Yes Other Assessments Other Other Assessments Pt has swelling and bruising around S-C joint and supraclavicular fossa. Severe tone in left scalenes, upper traps, pectoralis. M6 PT-IP Treatment Start: 05/05/21 08:45 Freq: NEEDED Status: Active Protocol: Document 05/08/21 13:22 SP (Rec: 05/08/21 15:59 SP [id number]) Physical Therapy Treatment Exercises Exercises Shoulder Pendulums,Shoulder Flexion,Elbow Flexion/ Extension,Wrist ROM,Hand ROM Education Education Provided Safety Other Treatments Other Treatment Performed Manual light retrograde strokes to LUE prox>distal followed by AROM and AAROM elbow, wrist, and hand for edema management, pendulums in standing at sink,unable to tolerate seated assessment due to lack of ROM forward. only tolerates arm as side movement . M7 PT-IP Assessment and Plan Start: 05/05/21 08:45 Freq: NEEDED Status: Active Protocol: Document 05/08/21 13:22 SP (Rec: 05/08/21 15:59 SP [id number]) PT Summary Assessment and Plan Potential Rehabilitation Potential Good Status of Condition at Evaluation Stable Summary Impairments Pain,ROM,Strength,Sensation, Bed Mobility,Transfers,Gait Progress Towards Goals Progressing Toward Goals,Slow Progress due to Pain,Slow Progress due to Medical Issues ,Slow Progress due to Activity Tolerance Assessment Summary Mauricio LUE remains swollen and guarded. He tolerated MLD and A/AROM for edema management and then was able to mobilize in room with sling off most comfortable. Pt is requiring Min A for sit<> stand, CGA gait no AD, Mod A for sit>supine. Will continue to follow. Goals Bed Mobility Goal Independent Transfer Goal Independent Gait Goal Independent Gait Distance 300 Other Goals - Pt will be independent with ROM program for LUE Days to Meet Goals 3 Frequency of Treatment Frequency Of Treatment Once a Day Treatment Plan Physical Therapy Treatment Plan Bed Mobility Training,Transfer Training,Gait Training, Therapeutic Exercise,Discharge Planning,Hot or Cold Pack, Manual Therapy Other Recommendations and Next Treatment edema managment, A/AROM as Focus tolerated, gait further distance (contact precautions) , bed mob. Recommendations To Nursing Amount of Assist Needed 1 Person Assist Discharge Recommendations PT Discharge Recommendations Home with 27/04 Assist Available,Home Health,SNF Rehab,Home vs SNF Transportation Needs at Discharge Private Vehicle
--- NOTE | 2021-05-08 15:07 | DI.RAD.S_ITS ---
PROCEDURE: XR CHEST FOR PICC 1V INDICATIONS: line placement COMPARISON: [facility], CR, XR CHEST 1V, 05/02/2021, 18:09. FINDINGS: PICC was placed by the intravenous therapy team from the right side. Fluoroscopic spot film demonstrates the tip of PICC projecting to the area of distal SVC. IMPRESSION: Tip of PICC projects to the area of distal SVC. No other change. Dictated by: Mainor Ruby M.D. on 05/08/2021 at 15:33 Approved by: Mainor Ruby M.D. on 05/08/2021 at 15:34
[2021-05-08] MEDS: ACETAMINOPHEN 325 MG TABLET 650 MG PO (17:29)
[2021-05-08] MEDS: KETOROLAC 30 MG/ML VIAL IV (17:29)
--- NOTE | 2021-05-08 18:29 | PM.PN.1 ---
Subjective Subjective Date Patient Seen: 05/08/21 Time Patient Seen: 08:00 Interval history: Today he notes mild improvement in his pain. But his pain is still very severe. He has continued difficulty moving his shoulder. His left arm is swollen, but this appears largely unchanged from yesterday. Exam Vital Signs (past 8 hours): - 05/08/21 13:00 05/08/21 14:52 05/08/21 16:00 Temperature 98.3 F 98.8 F Pulse Rate 76 72 Respiratory Rate 15 15 Blood Pressure 130/69 173/95 H Pulse Oximetry 97 98 96 05/08/21 16:20 05/08/21 17:25 Temperature Pulse Rate 78 Respiratory Rate Blood Pressure 199/100 H Pulse Oximetry 96 Oxygen Delivery Method Room Air Oxygen Flow Rate 0 Narrative Exam Narrative: GEN: mild distress from pain HEENT: PERRL, moist mucous membranes NECK: Trachea midline. tenderness along clavicle to the sternoclavicular joint on the left, with effusion present CARDIOVASCULAR: regular rate rhythm without murmurs, gallops, or rubs. RESPIRATORY: Clear to auscultation bilaterally. No wheezes, rales, or rhonchi. GASTROINTESTINAL: Abdomen soft, non-tender, nondistended, normal bowel sounds EXTREMITIES:supraclavicular swelling noted but apperas imiproved, left shoulder range of motion decreased, left upper extremity edema present and appears stable to slightly improved, moving his fingers and wrist but with decreased range of motion, no fluctuance or crepitus felt in arm, bilateral lower extremity edema mild with no erythema noted and superficial lacerations on his toes BACK: minimally tender over lower c-spine and upper t-spine NEURO: AOx3. 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 History of tibial fracture Lower extremity edema Presence of combination internal cardiac defibrillator (ICD) and pacemaker Surgical History H/O cervical spine surgery History of bilateral knee replacement History of foot surgery Family History Mother Congestive heart failure Father Blood clots in brain Stroke Social History household members: spouse Smoking Status: Never smoker Assessment & Plan Assessment & Plan narrative: 6M PMH alcohol abuse, AICD, hyponatremia, recent c-spine surgery, previous R leg wound and infection who presents after a fall with fevers, left shoudler pain and swelling and staph bacteremia. 1. MSSA bacteremia, source unclear -has previous history of viral cardiomyopathy but no history of endocarditis which was initially relayed to me -UA negative, CT chest with questionable infiltrate vs atelectasis but patient without respiratory symptoms so doubt pneumonia -had trauma to shoulder and now has pain and swelling at sternoclavicular joint on left, and left shoulder ----no abscess noted -ortho consulted and aspirated shoulder, cell count not consistent with infection, cultures currently negative -sternoclavicular joint has no discrete fluid to drain -CT neck and chest showed no abscess -TTE ordered to evaluate for vegetation and none noted -surgery consulted for sternoclavicular swelling, and recommend antibiotic treatment for now, and if develops discrete drainable collection would likely need cardiothoracic surgery consult -blood cultures showed MSSA, positive on 05/02 and 05/04, surveillance since negative -discussed with ID who agree no further workup necessary, antibiotic course will depend on clinical suspiscion of osteo, septic arthritis, or only soft tissue infection with bacteremia, they recommend 6 weeks if concerned about osteomyelitis, 4 weeks if concernced about septic joint, 2 weeks if low concern -will discuss with orthopedic, Dr. Willson, but CT scan showed no evidence of bone involvement, may need 4 weeks antibiotics for possible joint infection 2. L sternoclavicular joint effusion -unclear if this is source of infection -per ortho rec for now IV antibiotics and monitor closely clinically, may need higher level of care if develops drainable collection 3. L shoulder and arm swelling -ortho aspirated -cell count not consistent with infection, cultures pending -U/S for DVT negative, and CT angio showed no other vascular source of swelling 4. Elevated blood sugar without the diagnosis of diabetes, acute, present on admission -A1c: 5.8%-No diabetes, does not require blood sugar management 5. Essential hypertension, in the setting of ICD in place, acute on chronic, present on admission -B/P 164/75 (patient reports that his baseline systolic blood pressure 1 30s to 150s) -continue patient's lisinopril, continue the patient's also prescribed carvedilol, digoxin, and Lasix-which I believe is for heart failure with preserved ejection fraction (per pt 50-55%), and possible atrial fibrillation 6. Obesity as evidence by BMI 33.5 kg/m2, acute on chronic, present on admission -consideration will be given to dietary counseling Code status: Full code Surrogate decision maker: Joy HUFF PCR: Negative COVID vaccination: Pfizer December 2020 DVT/VTE prophylaxis: Lovenox 40 mg and SCDs Estimated length of stay: Likely to be greater than 2 midnights as source for bacteremia needs to be identified, IV antibiotics and fluid rehydration. Quality VTE Deep Vein Thrombosis/Pulmonary Embolism Present on Admission: No
--- NOTE | 2021-05-08 19:01 | PC.NURSE ---
b/p 199/100 via wall cuff, patient symptomatic w/ flushed face, c/o some discomfort. b/p rechecked manually 180/90. MD on floor, reviewed VS & meds, he will follow up.
[2021-05-08] MEDS: AMLODIPINE 5 MG TABLET PO (19:17)
[2021-05-08] MEDS: lisinopriL 10 MG TABLET PO (19:17)
[2021-05-08] MEDS: SENNOSIDES 8.6 MG TABLET 17.2 MG PO (20:32)
[2021-05-09] VITALS (7 sets, daily range): BP systolic 149–190; BP diastolic 79–98; PULSE 74–81; RESP 16–18; TEMP 36.4–37.1; O2SAT 95–99
[2021-05-09] MEDS: CEFAZOLIN 1 GM VIAL 2 GM IV (06:11)
--- NOTE | 2021-05-09 07:52 | PM.PN.1 ---
Subjective Subjective Date Patient Seen: 05/09/21 Time Patient Seen: 07:52 Interval history: Patient states he is doing well overall. He notes that his pain level has improved, and he reports that his mobility in the left upper extremity has improved significantly. Patient reports pain over the left humeral head no over the distal half of the left clavicle. Exam Vital Signs (past 8 hours): - 05/09/21 02:00 05/09/21 05:10 05/09/21 06:00 Temperature 97.6 F Pulse Rate 79 Respiratory Rate 18 Blood Pressure 186/93 H Pulse Oximetry 95 95 95 Oxygen Delivery Method Room Air Oxygen Flow Rate 0 Narrative Exam Narrative: 76-year-old male. Patient is resting comfortably in bed, is in no acute distress, is alert and oriented x3. Skin is warm, dry, and pink. Good sensation appreciated to light touch throughout the bilateral upper extremities. Tenderness to palpation appreciated over the left humeral head and the distal half the left clavicle. Good capillary refill. No signs erythema throughout the left upper extremity. Mild swelling throughout the left hand. Radial pulse palpated on the left. 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 Appropriate to manage patient conservatively with IV antibiotics. There does not appear to be a focal area terms of his sternoclavicular area which would be amenable to drainage. Systemically he appears to be responding to the IV antibiotics. Quality VTE Deep Vein Thrombosis/Pulmonary Embolism Present on Admission: No
[2021-05-09] MEDS: DIGOXIN 0.125 MG TABLET PO (08:01)
[2021-05-09] MEDS: ENOXAPARIN 40 MG/0.4 ML SYRINGE SUBCUT (08:01)
[2021-05-09] MEDS: ATORVASTATIN 20 MG TABLET PO (08:01)
[2021-05-09] MEDS: AMLODIPINE 5 MG TABLET PO (08:01)
[2021-05-09] MEDS: carvediloL 12.5 MG TABLET 25 MG PO (08:01)
[2021-05-09] MEDS: SODIUM CHLORIDE 0.9% FLUSH 10 ML IV (08:02)
[2021-05-09] MEDS: BUDESONIDE 0.5 MG/2 ML NEB INH (08:10)
[2021-05-09] MEDS: lisinopriL 20 MG TABLET 40 MG PO (08:10)
--- NOTE | 2021-05-09 08:31 | CM.DPC ---
DCP Cont: Spoke to Chanda at [facility], and she mentioned that they can accept patient today if he is ready. She will need copies of vaccination cards, as well as updated COVID test. Updated nurse, Galdino. has not yet been in today, and have not yet discussed patient in team rounds as of yet. It is also unclear if infections disease MD was yet consulted. He does have PICC line. [facility] was considering patient as well. P: DCP to continue to follow. Will see if patient will be ready today, and will consult with patient and to confirm plan. Priscilla Ching RN/Gym Teacher
--- NOTE | 2021-05-09 10:10 | OT.IP.TRT ---
Current Diagnoses Pain in unspecified shoulder (05/04/21) Occupational Therapy Treatment Note M2 OT-IP Current Condition Start: 05/07/21 12:08 Freq: Status: Active Protocol: Document 05/07/21 09:25 [facility] (Rec: 05/07/21 12:33 [facility] [id number]) Occupational Therapy Current Condition Current Condition Evaluation Date 05/07/21 Treatment Diagnosis MSSA bacteremia, left shoulder swelling Diagnosis Onset Date 05/04/21 Post Operative Precautions Other Precautions Sling on for comfort, especailly when up on his feet . M3 OT- IP Subjective and Pain Start: 05/07/21 12:08 Freq: Status: Active Protocol: Document 05/09/21 11:28 [facility] (Rec: 05/09/21 11:44 [facility] [id number]) OT- Subjective Occupational Therapy Visit Type Type Treatment Note Visit Start Time 09: Visit Stop Time 10:10 Total Visit Minutes 32 Occupational Therapy Visit Comments Patient Comments Pt agreed to get up. Split treatment from [id number] and [id number]. Patient/Caregiver Goals To go home. OT Pain Assessment Pain When Pain Assessed During Mobility Pain Present Pain Present Pain Reported Location left shoulder Intensity 5 Scale Used Numeric (0 - 10) M4 OT- IP ADL's Start: 05/07/21 12:08 Freq: Status: Active Protocol: Document 05/09/21 11:28 [facility] (Rec: 05/09/21 11:44 [facility] [id number]) OT ADL-Grooming Comments OT Grooming Comments Pt using left hand to assist for needs. OT ADL-Oral Care Comments Oral Care Comments Pt states able to squeeze the toothpaste with his left hand now. OT ADL-Dressing General Eval Upper Body Dressing Ability Maximum Assistance Comments OT Dressing Comments MAX A to assist to help zaria/ doff sling. Able to get pt another sling size, as current sling pt got from the ED is too small. Nursing notified of need for larger sling. OT ADL-Toileting General Evaluation Toileting Ability Independent Comments OT Toileting Comments Pt able to use the toilet on his own. M5 OT- IP IADL's Start: 05/07/21 12:08 Freq: Status: Active Protocol: Document 05/07/21 09:25 [facility] (Rec: 05/07/21 12:33 [facility] [id number]) OT-Instrumental Activities of Daily Living Home Safety Awareness Awareness of Need for Assistance at Home Good Awareness Ability to Problem Solve Emergency Able to Problem Solve Situations Medication Management Medication Management No Deficits Identified Money Management Money Management No Deficits Identified Meal Preparation Meal Preparation Comments Due to pt's inability to use LUE pt will need assist. Newspaper Stuffer Newspaper Stuffer Comments Due to pt's inability to use LUE pt will need assist. M6 OT- IP Functional Cognition Start: 05/07/21 12:08 Freq: Status: Active Protocol: Document 05/08/21 13:18 [facility] (Rec: 05/08/21 13:30 [facility] [id number]) Cognitive Factors Limiting Selfcare Function Cognitive Comments Cognitive Assessment Comments Pt just needing encouragement to incorporate his LUE for ADl and functional mobility needs. M7 OT- IP Mobility and Balance Start: 05/07/21 12:08 Freq: Status: Active Protocol: Document 05/09/21 11:28 [facility] (Rec: 05/09/21 11:44 [facility] [id number]) OT-Transfer Assessment Sit to and From Stand Sit to and from Stand Standby Assistance Transfers Transfer Ability Standby Assistance Technique Transfer Destination Chair,Toilet Transfer Technique Stand Step Pivot Devices Transfer Assistive Devices None OT- Gait Assessment Comments Gait Ability Comments SBA in the room. OT- Balance Assessment Sitting Balance and Reactions Static Sitting Balance Ability Normal Dynamic Sitting Balance Ability Good Standing Balance and Reactions Static Standing Balance Ability Good M9 OT- IP Assessment and Plan Start: 05/07/21 12:08 Freq: Status: Active Protocol: Document 05/09/21 11:28 [facility] (Rec: 05/09/21 11:44 [facility] [id number]) OT Summary Assessment and Plan Potential Rehabilitation Potential Good Analytic Complexity at Evaluation Moderate Summary OT Impairments Pain,Range of Motion,Strength, Balance,Functional Mobility, Self-Feeding,Grooming,Dressing ,Toileting,Bathing,Toilet Transfers,Shower Transfers, Activity Tolerance Progress Towards Goals Progressing Toward Goals Assessment Summary Able to show pt exercises to do with his LUE , by placing on the treatment table with towel/rob to help facilitate AROM for shoulder flexion. Encouraged pt to continue to to work on shoulder retraction . Pt looking to go to skilled rehab today. Goals Grooming Goal Independent Dressing Goal Independent Toileting Goal Independent Bathing Goal Independent Toilet Transfer Goal Independent Shower Transfer Goal Independent OT-Other Goals All goals having pt incorporate his LUE for needs without compensation of RUE to assist. Days to Meet Goals 18 Frequency of Treatment Frequency Of Treatment Once a Day Treatment Plan OT Treatment Plan ADL Training,Functional Mobility,Patient/Family Education,Discharge Planning Discharge Recommendations OT Discharge Recommendations SNF Rehab Transportation Needs at Discharge Private Vehicle
[2021-05-09] MEDS: OXYCODONE IR 5 MG TABLET PO (10:18)
--- NOTE | 2021-05-09 10:45 | CM.DPC ---
DCP Cont: Chanda at [facility] had called stating that they can accept patient. Had spoken to patient and , for during team rounds, it was noted that patient is medically stable for discharge today. He will be continuing with IV Cefaxolin every 8 hours, 3-4 weeks, possibly 6 weeks. Patient had met with Amanda at [facility] yesterday, for referral was also sent to her. He and are hopeful that he can go to [facility], for it is closer to [place], where they are staying. Spoke to Amanda at [facility] who indicated that they can accept patient today. Asked to bring in copies of vaccine cards, and asked patient to bring his CPAP machine. COVID swab is pending. Completed PASSR. Currently awaiting orders, and time of transport. Will update March at [facility] once transportation is confirmed. P: Patient is to be discharged to [facility] today. Awaiting orders and transportation time. Priscilla Ching RN/Fitness And Wellness Instructor
[2021-05-09 11:12] LABS: COVID19 -Nasal RAPID Negative (Negative)
--- NOTE | 2021-05-09 11:18 | PT.IPTN ---
Current Diagnoses Pain in unspecified shoulder (05/04/21) Physical Therapy Treatment Note M2 PT-IP Current Condition Start: 05/05/21 08:45 Freq: NEEDED Status: Active Protocol: Document 05/06/21 09:43 [facility] (Rec: 05/06/21 10:22 [facility] [id number]) Physical Therapy Current Condition Current Condition Evaluation Date 05/06/21 Treatment Diagnosis staph bacteremia, possible septic S-C joint; LUE swelling and pain Onset Date 04/29/21 Precautions Brace Pt has soft sling to use LUE for comfort. 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 Pain Management Techniques Modification of Treatment,Re- positioning,Timing of Activity with Medications M4 PT-IP Mobility and Gait Start: 05/05/21 08:45 Freq: NEEDED Status: Active Protocol: Document 05/09/21 11:02 [facility] (Rec: 05/09/21 11:36 [facility] [id number]) PT-Transfer Assessment Sit to and From Stand Sit to and from Stand Standby Assistance,1 Person Assistance,Use of Upper Extremities Equipment Transfer Assistive Device None,Bed Rail Transfers Transfer Destination Chair Transfer Technique ambulated w/ no AD Transfer Ability Level of Assist Standby Assistance Comments Mobility Comments Pt seated with pain c/o pain in shoulder since OT treat and pt requested no shoulder activity feeling comfortable in larger sling. Pt performed wrist and hand exercises. Pt stood with use of LUE and ambulated in room as pt refused gowning to leave room. Pt with steady gait and standing balance. Left pt in chair with all needs within reach. Gait Assessment Gait Gait Assistance Required: Standby Assistance Distance (Feet) 90 Assistive Devices Assistive Device None,Gait Belt Orthotic/Prosthetic Devices or Brace: No Gait Deviations General Gait Pattern Antalgic,Decreased Feet Clearance,Flexed Trunk,Wide Based Gait Factors Limiting Gait Function Factors Limiting Gait Function Decreased Activity Tolerance, Decreased Strength,Limited Range of Motion,Pain PT-Balance Assessment Sitting Balance and Reactions Static Sitting Balance Ability Normal Dynamic Sitting Balance Ability Good Standing Balance and Reactions Static Standing Balance Ability Good Dynamic Standing Balance Ability Fair Device Used no AD M5 PT-IP Objective Assessments Start: 05/05/21 08:45 Freq: NEEDED Status: Active Protocol: Document 05/06/21 09:43 [facility] (Rec: 05/06/21 12:18 AW [id number]) Orientation Orientation/Cognition Level of Alertness Alert Orientation Name,Day of Week,Place, Situation Language Function Ability No Deficits Noted Safety Awareness Understands Safety Issues Memory Description No Deficits Noted Gross Range of Motion Upper Extremity ROM Assessment Left Impaired Impairments AROM minimal. PROM to ~30 degrees in flexion and abduction with pain. Lower Extremity ROM Assessment Within Functional Limits Strength Upper Extremity Strength Assessment Left Impaired Shoulder NT due to pain Elbow 3/5 Lower Extremity Strength Assessment Within Functional Limits Sensation Assessment Sensation Gross Sensation Left UE Impaired Sensation Description Pain Muscle Tone Muscle Tone WNL Yes Other Assessments Other Other Assessments Pt has swelling and bruising around S-C joint and supraclavicular fossa. Severe tone in left scalenes, upper traps, pectoralis. M6 PT-IP Treatment Start: 05/05/21 08:45 Freq: NEEDED Status: Active Protocol: Document 05/09/21 11:02 [facility] (Rec: 05/09/21 11:36 [facility] [id number]) Physical Therapy Treatment Exercises Exercises Wrist ROM,Hand ROM M7 PT-IP Assessment and Plan Start: 05/05/21 08:45 Freq: NEEDED Status: Active Protocol: Document 05/09/21 11:02 [facility] (Rec: 05/09/21 11:36 [facility] [id number]) PT Summary Assessment and Plan Potential Rehabilitation Potential Good Status of Condition at Evaluation Stable Summary Impairments Pain,ROM,Strength,Sensation, Bed Mobility,Transfers,Gait Assessment Summary Pt with increased pain in shoulder. Pt with improved steadiness able to ambulate ~ 90ft w/o AD/SBA. Pt will d/c today to SNF. Goals Bed Mobility Goal Independent Transfer Goal Independent Gait Goal Independent Gait Distance 300 Other Goals - Pt will be independent with ROM program for LUE Days to Meet Goals 3 Frequency of Treatment Frequency Of Treatment Once a Day Treatment Plan Physical Therapy Treatment Plan Bed Mobility Training,Transfer Training,Gait Training, Therapeutic Exercise,Discharge Planning,Hot or Cold Pack, Manual Therapy Recommendations To Nursing Amount of Assist Needed 1 Person Assist Discharge Recommendations PT Discharge Recommendations Home with Assistance, Outpatient PT Transportation Needs at Discharge Private Vehicle
--- NOTE | 2021-05-09 13:20 | PC.NURSE ---
Charge nurse assisted with preparing patient for discharge to SNF. Dressing to PICC line changed prior to leaving, CDI. Patient's pain well controlled with oxycodone as ordered, and wearing sling to left arm for comfort. Report given to Pina at [facility]. Patient picked up by designated transport via wheelchair. Patient and have no further questions or concerns at this time.
--- NOTE | 2021-05-09 14:57 | PM.DS.1 ---
History of Present Illness History of Present Illness Chief complaint: TORN SHOULDER Narrative: Per Noemy Hsuson: Patient is 76-year-old male Nikolas Gordoner nonsmoker with history of alcohol abuse, AICD, hyponatremia, who was seen in the ED 05/02 for Left shoulder edema, returned today for evaluation. He had a very extensive workup after he had a ground level fall resulting in a left shoulder injury in his motor home. He had x-rays and CT which noted no fracture or dislocation but fluid suggesting injury. He was given pain meds and a sling and discharged home. Patient did have a initial septic workup (blood cultures) for fever. He initially was contacted with positive blood culture results of Staph aureus in multiple bottles and prescribed outpatient oral antibiotics. But the patient return to the ED today because he was having increasing pain in his Lt shoulder in just did not feel great, without any specific complaints. In the ED Dr. Demetris huffman came in and tapped the left shoulder and the left sternoclavicular joint. and felt neither were sources for a infection. Patient complains of a mild body aches, chills, mild cough r/t allergy symptoms with postnasal drip, no ear, eye, throat pain or difficulty swallowing. He has no chest pain, shortness of breath, abd pain, nausea, vomiting, constipation, diarrhea, dysuria or frequency. Patient denies no recent illness or exposure to ill persons, traumatic injury trauma or loss of consciousness other than his left shoulder. Patient denies any E injuries skin lesions infections, no recent antibiotic use, no numbness, tingling, weakness, headache, changes in vision. Patient is unable to provide an adequate medical history although he is alert and orientated he verified only that he has a history of hypertension, COPD, SARIAH and uses CPAP, and that he had an episode of endocarditis has been unable to reach her at this time. In 2016, and that he had a ICD defibrillator placed at that time. Patient denies a history of congestive heart failure, coronary artery disease, hyperlipidemia, or any other medical conditions at this time. Patient was also unable to tell us his medications he states that his has a complete list, nursing is trying to contract her. Patient upon admit is resting in bed eating has significant discomfort in the left shoulder with any sort of movement, skin appears dry cracked and significantly reddened. Patient is in mild distress, though more ill appearing on exam, then on paper. Admit vitals:temp 100.4?, BP 164/75, tachycardic within HR of 114, and slightly tachypneic with an RR 22, O2 saturation 94% on room air. Patient did not have white count as wbc's were 9.6, but did have a slight neutrophil pump at 7800, ESR of 45 CRP 29.8, lactate and procalcitonin were both within normal limits. HGB 12.7, HCT 38.2. Patient also has some mild hyponatremia 126, chloride 94, BUN 29, glucose 199, the patient's creatinine and GFR were within normal limits, a did have low albumin at 3.3. CT of chest abdomen and pelvis demonstrated Fluid and inflammatory changes centered on the left sternoclavicular joint. Findings that could represent septic arthritis or aseptic acute inflammation. In addition small volume fluid in the pelvis with trace diffuse mesenteric and pericolonic fat stranding/edema. Findings could represent volume overload or other source of edema, or an acute infectious process such as enteritis or colitis. Patient admitted with Staphylococcus aureus bacteremia of unknown etiology, mild sepsis, hyponatremia. Discharge Providers Provider Date of admission: 05/04/21 19:58 Discharge Date: 05/09/21 Consults: 05/04/21 21:58 Consult to Respiratory Therapy Evaluate & Treat Comment: CPAP sleep apnea Physician Instructions: Evaluate and treat 05/04/21 22:00 Consult to Physical Therapy Evaluate & Treat Comment: Lft shoulder edema, sling for comfort Physician Instructions: Evaluate and Treat 05/05/21 10:59 Consult to Physician Routine Comment: Consulting Provider: Carson Damico Reason for consultation: neck infection, sepsis Has provider been notified: Yes 05/05/21 11:01 Consult to Physician Routine Comment: Consulting Provider: Marisela Willson Reason for consultation: left shoulder pain Has provider been notified: Yes 05/06/21 13:17 Consult to Occupational Therapy Evaluate & Treat Comment: Physician Instructions: Evaluate and treat Discharge provider: Andrew Kam MD Summary Hospital Course Discharge Diagnosis: 1. MSSA bacteremia 2. Septic arthritis of left sternoclavicular joint 3. Left shoulder effusion 4. HTN 5. Obesity< BMI 33.1 6. 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 Please note early notes documented patient had previous history of endocarditis, but upon record gathering and discussion with patient he has previous viral cardiomyopathy. He initially presented with fevers and left shoulder pain. He was positive for bacteremia on 05/02 blood cultures and 05/04 as well. He was started on IV antibiotics on 05/04 and his blood cultures remained clear after this. He had significant left shoulder and sternal pain. He did get a L shoulder tap to which cell counts were not consistent with infection and cultures did not grow bacteria. In addition he had left sternoclavicular joint swelling. Imaging did now show a discrete abscess. This was also attempted to be tapped but no fluid was able to be sent for analysis. He had mild spine pain but CT did not show evidence of infection. He had history of R leg wound but this was well healed. He had knee replacement, but no knee pain. TTE did not show any vegetation. It was presumed that his left sternoclavicular joint was infected. No evidence of ostemomyelitis was noted on CT scan. He could not undergo MRI due to AICD. He had inflammatory markers drawn and these remained elevated at 72->74, however his crp was downtrending from peak of 31.5->23.3->16.9. He was discharged with plan of at minimum 3 weeks of antibiotics which would be through 05/25 with cefazolin through a PICC. As an outpatient he will be followed by Aki STEVENS and Dr. Marisela Willson, from orthopedics. It is likely that he will need a further extended course of antibiotics possibly through 6 weeks. He was discharged to [facility]. Exam Vital Signs (past 8 hours): Oxygen Delivery Method Room Air Oxygen Flow Rate 0 Narrative Exam Narrative: GEN: no acute distresss HEENT: PERRL, moist mucous membranes NECK: Trachea midline. tenderness along clavicle to the sternoclavicular joint on the left, with effusion present CARDIOVASCULAR: regular rate rhythm without murmurs, gallops, or rubs. RESPIRATORY: Clear to auscultation bilaterally. No wheezes, rales, or rhonchi. GASTROINTESTINAL: Abdomen soft, non-tender, nondistended, normal bowel sounds EXTREMITIES:supraclavicular swelling noted but appears imiproved, left shoulder range of motion limited but slightly improved, left upper extremity edema present and appears stable to slightly improved, moving his fingers and wrist but with decreased range of motion, no fluctuance or crepitus felt in arm, bilateral lower extremity edema mild with no erythema noted and superficial lacerations on his toes BACK: minimally tender over lower c-spine and upper t-spine NEURO: AOx3. 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 Grijalva came in with shoulder pain and fever. He had bacteria in his blood and a joint infection. He should be on IV cefazolin 2gm q8hr for AT LEAST 3 weeks which would be through 05/25/21. However, his antibiotics may need to be extended to six weeks depending on how he responds. He will follow with Dr. Marisela Willson, orthopedic surgeon and should see her in clinic in 1-2 weeks. He is also referred to [facility] Infectious disease clinic and should follow up in 1-2 weeks. He should have weekly cbc with differential, bmp, and crp drawn and sent to [facility] Infectious disease clinic, re: Dr. Contreras Discharge orders & Medications Prescriptions: New cefazolin 1 gram Recon Soln 2 gm IV Q8H Qty: 60 RF: 0 sennosides [senna] 8.6 mg Tablet 17.2 mg PO BEDTIME Qty: 20 RF: 0 acetaminophen 325 mg Tablet 650 mg PO Q6HR PRN (Reason: Fever/Mild Pain (1-3)) Qty: 20 RF: 0 lisinopril 20 mg Tablet 40 mg PO DAILY Qty: 20 RF: 0 amlodipine [Norvasc] 5 mg Tablet 5 mg PO DAILY Qty: 20 RF: 0 docusate sodium [DOK] 100 mg Capsule 100 mg PO BID PRN (Reason: Constipation) Qty: 20 RF: 0 oxycodone 5 mg Tablet 5 mg PO Q3HR PRN (Reason: Pain, Moderate (4-6)) Qty: 20 RF: 0 Continued digoxin 125 mcg (0.125 mg) Tablet 125 mcg PO DAILY RF: 0 furosemide [Lasix] 20 mg Tablet 20 mg PO DAILY RF: 0 rosuvastatin [Crestor] 10 mg Tablet 10 mg PO DAILY RF: 0 Incruse Ellipta 18 mg inhaler 18 mg inhalation DIRECTED PRN (Reason: dyspnea) RF: 0 Symbicort 4.5 mcg inhaler See Rx Instructions .ROUTE .COMPLEX RF: 0 aspirin 325 mg tablet 325 mg PO DAILY RF: 0 carvedilol 25 mg tablet 25 mg PO 1-2XD RF: 0 Discontinued lisinopril 20 mg Tablet 20 mg PO DAILY RF: 0 oxycodone-acetaminophen 5-300 mg tablet 1 tab PO Q8H PRN (Reason: pain) Qty: 20 RF: 0 cephalexin 500 mg capsule 500 mg PO Q6H 7 Days Qty: 28 RF: 0 oxycodone 5 mg tablet 5 mg PO Q4-6H PRN (Reason: pain) Qty: 20 RF: 0 Follow up/Referrals: [facility] [Provider Group] (going to [facility], has MSSA bacteremia with sternoclavicular joint involvement being discharged on cefazolin 2gm q8hr for at least 3 weeks through 05/25, with possible extension further. Also to follow up with Dr. Marisela Willson orthopedic surgeon. Ordered for weekly cbc with diff, bmp, and crp to be sent to ID office.) Discharge Health Status Multidrug resistant organism: No MDRO Diet/Activity/Treatments Diet: Low-cholesterol Liquid consistency: Normal/Thin Food texture: Regular [facility] Rehab type: Physical therapy and Occupational therapy Quality VTE Deep Vein Thrombosis/Pulmonary Embolism Present on Admission: No
== END 2021-05-09 13:29 | DRG 549 ==
LOC: ED 18:56 → AC 19:59
PROVIDERS: Nurse Practitioner Family; Orthopaedic Surgery; Admitting Provider Internal Medicine; Emergency Provider Emergency Medicine; Referring Provider Emergency Medicine; Visit Provider Internal Medicine
DX: M00.812 Arthritis due to other bacteria, left shoulder (principal); R78.81 Bacteremia; E87.1 Hypo-osmolality and hyponatremia; I50.30 Unspecified diastolic (congestive) heart failure; B95.61 Methicillin susceptible Staphylococcus aureus infection as the cause of diseases classified elsewhere; I11.0 Hypertensive heart disease with heart failure; M25.412 Effusion, left shoulder; R73.9 Hyperglycemia, unspecified; E66.9 Obesity, unspecified; Z68.33 Body mass index [BMI] 33.0-33.9, adult; Z95.810 Presence of automatic (implantable) cardiac defibrillator; Z20.822 Contact with and (suspected) exposure to COVID-19
CPT/HCPCS: 36415; 36569; 36592; 70491; 71045; 71260; 73030; 73200; 74177; 80053; 81001; 82550; 82945; 83036; 83605; 83690; 83735; 83880; 84145; 84157; 84484; 85025; 85379; 85651; 86140; 87040; 87070; 87075; 87150; 87186; 87205; 87635; 89051; 93005; 93306; 93971; 94640; 94760; 96360; 96361; 96374; 97110; 97116; 97140; 97161; 97166; 97530; 97535; 99232; 99284; C9803; J0690; J1170; J1642; J1650; J1885; J2543; Q9967